=== PATIENT | female | born 1950 | race Caucasian/White ===

== ENCOUNTER 2016-05-13 12:06 | Day surgery (SDC) | payer MEDICARE, OTHER ==
[~2016-05-13] VITALS: Ht 167.6 cm; Wt 75.8 kg
[~2016-05-13 12:06] MED LIST: ASPI-587 PO; CLD600T PO; CLON1TAB36 PO; CYAN50TA PO; DULO60CA6 PO; EQUATE PM; ESCT10T; LORA0.5T34; MULT1TAB63 PO; OMEP-10 PO; OXYC-12 PO; OXYC-199 PO; PNT40TEC PO; QUET50TA21 PO; VIT D; vit B12
--- OUTSIDE RECORDS SUMMARY | 2016-05-13 12:13 | XMS REPORT | Continuity of Care Document ---
Author Author [facility] Organization [facility] Address Unknown Phone Unavailable Care Team Providers Care Preschool Teacher Name Role Phone RAMON TRONCOSO MD PCP Insurance Providers Payer Name Policy Number Subscriber Name Relationship [employer] Medicare [id number] Kamla Lopez 18 Self / Same As Patient Comm Crossover Enter Ins Name [id number] Kamla Lopez 18 Self / Same As Patient Advance Directives Directive Response Recorded Date/Time Advance Directives No 11/08/14 11:50am Health Care Power of Shadow Graph Weight Operator No 11/08/14 11:50am Organ Donor No 11/08/14 11:50am Resuscitation Status Full Code 11/08/14 11:50am Problems No known problems or medical conditions. Medications Medication Dose Route Sig Days/Qty Instructions Order Date Discontinued Date Status Calcium/Vitamin D 2,400 Mg PO DAILY 11/03/07 Active Multivitamins 11/03/07 Active [Equate Pm ] 11/03/07 07/12/13 Discontinued Escitalopram Oxalate 12/07/07 07/12/13 Discontinued Lorazepam 12/07/07 07/12/13 Discontinued Duloxetine HCl 1 Cap PO DAILY 07/12/13 Active Aspirin 81 Mg PO DAILY 07/12/13 10/11/14 Discontinued Omeprazole 20 Mg PO TWICE A DAY 07/12/13 10/11/14 Discontinued [vit B12] 07/12/13 10/07/13 Discontinued [Vit D2000 Iu Daily] 07/12/13 11/03/14 Discontinued Clonazepam 1 Mg GT TWICE A DAY 07/12/13 Active Oxycodone Hcl/Acetaminophen 1 Tab PO EVERY 4HRS PRN PAIN 120 Qty 10/11/14 Discontinued Pantoprazole Sod 40 Mg PO DAILY 10/11/14 Active Cyanocobalamin 1,000 Mcg PO TWICE A DAY 10/11/14 Active Quetiapine Fumarate 50 Mg PO DAILY 10/11/14 Active Oxycodone Hcl/Acetaminophen 1-2 Each PO EVERY 4HRS PRN PAIN 60 Qty LAST DOSE AT 3:50 PM 11/08/14 Active Social History Social History Problem Response Recorded Date/Time Alcohol Use Occasionally Uses 11/08/2014 11:50am Recreational Drug Use No 11/08/2014 11:50am Recent Foreign Travel No 11/08/2014 11:50am Sexually Transmitted Disease No 11/08/2014 11:50am HIV/AIDS No 11/08/2014 11:50am Smoking Status Never a Smoker 11/08/2014 11:50am Do you dip or chew tobacco? No 10/11/2014 10:52am Query Response Start Date Stop Date Smoking Status Never a Smoker Hospital Discharge Instructions No hospital discharge instructions. Plan of Care No plan of care. Functional Status No functional status results. Allergies, Adverse Reactions, Alerts Allergen Type Severity Reaction Status Last Updated No Known Drug Allergies Active 11/03/07 Immunizations Name Given Type Date of Pneumonia Vaccine 10/11/13 Historical Date of Influenza Vaccine 02/11/13 Historical Vital Signs Acute Vital Signs Vital Response Date/Time Temperature (Fahrenheit) 96.8 degrees F (97.6 - 99.5) Temperature (Calculated Celsius) 36.85501 degrees C (36.4 - 37.5) Temperature Source Temporal Pulse Rate (adult) 81 bpm (60 - 90) Respiratory Rate 16 bpm (12 - 24) O2 Sat by Pulse Oximetry 94 % (88 - 100) Blood Pressure 114/70 mm Hg Pain Pain Intensity 2 Height (Feet) 5 feet Height (Inches) 6.00 inches Height (Calculated Centimeters) 167.277842 cm Weight (Pounds) 166 pounds Weight (Calculated Grams) 13751.334 gm Weight (Calculated Kilograms) 75.119593 kilograms Calculated BMI 26.79 Results Laboratory Results Test Name Result Units Flags Reference Collection Date/Time Result Date/ Time Comments White Blood Count 5.8 10^3/uL 4.3-11.0 10/11/2014 1:10/11/2014 1: 28pm Red Blood Count 4.51 10^6/uL 4.35-5.85 10/11/2014 1:10/11/2014 1: 28pm Hemoglobin 13.3 G/DL 11.5-16.0 10/11/2014 1:10/11/2014 1:28pm Hematocrit 41 % 35-52 10/11/2014 1:10/11/2014 1:28pm Mean Corpuscular Volume 91 FL 80-99 10/11/2014 1:10/11/2014 1: 28pm Mean Corpuscular Hemoglobin 30 PG 25-34 10/11/2014 1:10/11/2014 1: 28pm Mean Corpuscular Hemoglobin Concent 32 G/DL 32-36 10/11/2014 1: 1:28pm Red Cell Distribution Width 12.8 % 10.0-14.5 10/11/2014 1:2014 1:28pm Platelet Count 255 10^3/uL 130-400 10/11/2014 1:10/11/2014 1:28pm Mean Platelet Volume 11.3 FL H 7.4-10.4 10/11/2014 1:10/11/2014 1: 28pm Neutrophils (%) (Auto) 58 % 42-75 10/11/2014 1:10/11/2014 1:28pm Lymphocytes (%) (Auto) 31 % 12-44 10/11/2014 1:10/11/2014 1:28pm Monocytes (%) (Auto) 10 % 0-12 10/11/2014 1:10/11/2014 1:28pm Eosinophils (%) (Auto) 2 % 0-10 10/11/2014 1:10/11/2014 1:28pm Basophils (%) (Auto) 1 % 0-10 10/11/2014 1:10/11/2014 1:28pm Neutrophils # (Auto) 3.4 X 10^3 1.8-7.8 10/11/2014 1:10/11/2014 1: 28pm Lymphocytes # (Auto) 1.8 X 10^3 1.0-4.0 10/11/2014 1:15pm 10/11/2014 1: 28pm Monocytes # (Auto) 0.6 X 10^3 0.0-1.0 10/11/2014 1:15pm 10/11/2014 1: 28pm Eosinophils # (Auto) 0.1 10^3/uL 0.0-0.3 10/11/2014 1:15pm 10/11/2014 1 :28pm Basophils # (Auto) 0.0 10^3/uL 0.0-0.1 10/11/2014 1:15pm 10/11/2014 1: 28pm Sodium Level 144 MMOL/L 135-145 10/11/2014 1:pm 10/11/2014 1:40pm Potassium Level 4.0 MMOL/L 3.6-5.0 10/11/2014 1:15pm 10/11/2014 1:40pm Chloride Level 108 MMOL/L H 98-107 10/11/2014 1:pm 10/11/2014 1:40pm Carbon Dioxide Level 26 MMOL/L 21-32 10/11/2014 1:15pm 10/11/2014 1: 40pm Anion Gap 10 MMOL/L 5-14 10/11/2014 1:15pm 10/11/2014 1:40pm Blood Urea Nitrogen 11 MG/DL 7-18 10/11/2014 1:15pm 10/11/2014 1:40pm Creatinine 0.81 MG/DL 0.60-1.30 10/11/2014 1:pm 10/11/2014 1:40pm BUN/Creatinine Ratio 14 10/11/2014 1:10/11/2014 1:40pm Estimat Glomerular Filtration Rate > 60 10/11/2014 1:15pm 2014 1:40pm GFR INTERPRETIVE DATA UNITS FOR ESTIMATED GFR (eGFR): mL/min/1.73 M2 REFERENCE RANGE FOR ESTIMATED GFR (eGFR) eGFR NORMAL eGFR >60 MODERATELY DECREASED eGFR 30-59 SEVERLY DECREASED eGFR 15-29 KIDNEY FAILURE <15 (OR DIALYSIS) Glucose Level 98 MG/DL 70-105 10/11/2014 1:15pm 10/11/2014 1:40pm Calcium Level 9.4 MG/DL 8.5-10.1 10/11/2014 1:15pm 10/11/2014 1:40pm Prothrombin Time 11.7 SEC L 12.2-14.7 11/08/2014 11:50am 11/08/2014 12: 09pm INR Comment 0.8 0.8-1.4 11/08/2014 11:50am 11/08/2014 12:09pm INTERPRETIVE DATA SUGGESTED THERAPEUTIC RANGE FOR INR'S: VENOUS THROMBOSIS, PULMONARY EMBOLISM, OR PREVENTION OF SYSTEMIC EMBOLISM (EG. IN ATRIAL FIBRILLATION): 2.0 - 3.0 MECHANICAL PROSTHETIC HEART VALVES: 2.5 - 3.5* *NOTE: INR'S UP TO 4.5 MAY BE NECESSARY IN SELECTED GROUPS OF HIGH RISK PATIENTS. [employer] CONSENSUS CONFERENCE ON ANTITHROMBOTIC THERAPY (2000). Procedures Procedure Status Date Provider(s) COLOREC CANCR SCR; COLNSCPY HI RISK completed 10/11/14 MANDIE DE SOUZA DO EGD BIOPSY SINGLE/MULTIPLE completed 10/11/14 MANDIE DE SOUZA DO Robot-assisted laparoscopic cholecystectomy completed 11/08/14 MANDIE DE SOUZA DO Encounters Encounter Location Date/Time Registered Surgical Day [facility] 11/08/14 11:24am Registered Clinic [facility] 11/03/14 10:05am Registered Clinic [facility] 10/27/14 1:14pm Registered Clinic [facility] 10/25/14 11:58am Registered Clinic [facility] 10/20/14 9:11am Registered Surgical Day Care [facility] 10/11/14 10:25am
--- NOTE | 2016-05-13 12:45 | ED GI ---
General Chief Complaint: Abdominal/GI Problems Stated Complaint: ABD PAIN/CRAMPING Nursing Triage Note: PT TO ED 7 W/ S.O. FOR C/O CHRONIC ABD PAIN X3 YRS SINCE PATY/HIATAL HERNIA REPAIR, WORSE OVER PAST 5 WKS. DENIES SEEING PCP OR SURGEON SINCE WORSENING OF SYMPTOMS. PT ALSO REPORTS "CLINCHING" STOMACH ET BLACK STOOLS Sepsis Screen: No Definite Risk Source of Information: Patient, Spouse Exam Limitations: No Limitations History of Present Illness Time Seen By Provider: 12:45 Initial Comments 66 yo female patient presents to the emergency department complaints of chronic abdominal pain for 3 years since having her cholecystectomy/hiatal hernia repair /EGD. Reports of the last 5 weeks has increased symptoms. Reports abdominal cramping and "clenching". Denies being able to eat anything today. Did have a small amount of cranberry juice early this morning. States she has been able to vomit since having a hiatal hernia repair. Reports intermittent nausea and vomiting. Does complain of diarrhea following meals since having the cholecystectomy. Timing/Duration: Other (chronic symptoms x3yrs. Worse over the last 5 wks.) Severity/Quality: Cramping Location: Generalized Abdomen Radiation: No Radiation Activities at Onset: None Modifying Factors: Worsens With Eating Allergies and Home Medications Allergies Coded Allergies: No Known Drug Allergies (Verified , 11/03/07) Home Medications Calcium Carbonate/Vitamin D3 1 Tab Tablet 2,400 MG PO DAILY (Reported) Clonazepam 1 Mg Tablet 1 MG GT BID (Reported) Cyanocobalamin 50 Mcg Tablet 1,000 MCG PO BID (Reported) Duloxetine Hcl 60 Mg Capsule.dr 1 CAP PO DAILY (Reported) Multivitamins 1 Ea Tablet (Reported) Oxycodone Hcl/Acetaminophen 1 Each Tablet #60 1-2 EACH PO Q4H PRN PRN PAIN LAST DOSE AT 3:50 PM Prescribed by: DIPIKA WEST on 11/08/14 1617 Pantoprazole Sod 40 Mg Tab 40 MG PO DAILY (Reported) Quetiapine Fumarate 50 Mg Tablet 50 MG PO DAILY (Reported) Review of Systems Constitutional: No chills, No diaphoresis, No dizziness, No fever, malaise weakness (generalized weakness and fatigue.) Respiratory: No Symptoms Reported Cardiovascular: No Symptoms Reported Gastrointestinal: See HPIDenies Abdomen Distended, Abdominal PainDenies Blood Streaked Stools, Denies Constipated, DiarrheaDenies Difficulty Swallowing , Nausea Poor Appetite Poor Fluid Intake Vomiting Other (black stools recently ( reports patient has been taking pepto-bismol for several days).) Genitourinary: Denies Burning, Denies Frequency, Denies Flank Pain, Denies Hematuria, Denies Pain Musculoskeletal: no symptoms reported Skin: no symptoms reported Psychiatric/Neurological: No Symptoms Reported All Other Systems Reviewed Negative Unless Noted: Yes (Negative excepted noted.) Past Wviepgf-Ayylug-Bulbmw Hx Patient Social History Recent Foreign Travel: No Contact w/Someone Who Travel: No Recent Infectious Disease Expo: No Recent Hopitalizations: No Immunizations Up To Date Date of Pneumonia Vaccine: Oct 11, 2013 Date of Influenza Vaccine: Feb 11, 2013 Surgeries HX Surgeries: Yes (HIATAL HERNIA, EGD, COLONOSCOPY, BREAT BIOPSY X2) Surgeries: Gallbladder Respiratory Hx Respiratory Disorders: No Cardiovascular Hx Cardiac Disorders: No Neurological Hx Neurological Disorders: No Reproductive System Hx Reproductive Disorders: No Sexually Transmitted Disease: No HIV/AIDS: No 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 Disorders: Denies Genitourinary Hx Genitourinary Disorders: No Gastrointestinal Hx Gastrointestinal Disorders: Yes Gastrointestinal Disorders: Chronic Constipation, Chronic Diarrhea, Irritable Bowel Musculoskeletal Hx Musculoskeletal Disorders: No Endocrine Hx Endocrine Disorders: No HEENT HX ENT Disorders: No HEENT Disorders: Cataract Loss of Vision: Denies Hearing Impairment: Denies Cancer Hx Cancer: No Psychosocial Hx Psychiatric Problems: Yes Behavioral Health Disorders: Anxiety Integumentary HX Skin/Integumentary Disorder: No Blood Transfusions Hx Blood Disorders: No Adverse Reaction to a Blood Tr: No Reviewed Nursing Assessment Reviewed/Agree w Nursing PMH: Yes Family Medical History Significant Family History: No Pertinent Family Hx Family Medial History: Cancer 19 MOTHER, Onset:Unknown Cancer of colon 19 FATHER Physical Exam Vital Signs VS - Last 72 Hours, by Label 05/13/16 05/13/16 05/13/16 12:12 13:23 14:51 Temp 98.4 98.4 98.4 Pulse 92 Resp 24 B/P 131/80 Pulse Ox 99 O2 Delivery Room Air Capillary Refill : Less Than 3 Seconds General Appearance: WD/WN no apparent distress Respiratory: lungs clear normal breath sounds no respiratory distress Cardiovascular: normal peripheral pulses regular rate, rhythm no edema no murmur Gastrointestinal: normal bowel sounds soft no organomegalyNo distended, No guarding, No rebound, tenderness (generalized mild TTP.) other (well healed surgical scars of the abdomen consistent with PSH.) Extremities: no pedal edema normal capillary refill Back: normal inspection Neurologic/Psychiatric: alert oriented x 3 depressed affect Skin: normal color warm/dry Progress/Results/Core Measures Results/Orders Lab Results Laboratory Tests Test 05/13/16 13:06 05/13/16 13:14 Range/Units Urine Amorphous Sediment MOD GUIDO URATES H /LPF Urine Bacteria FEW H /HPF Urine Bilirubin NEGATIVE NEGATIVE Urine Casts NONE /LPF Urine Clarity SLIGHTLY CLOUDY Urine Color MERCEDES H Urine Crystals PRESENT H /LPF Urine Culture Indicated YES Urine Glucose (UA) NEGATIVE NEGATIVE Urine Ketones 1+ H NEGATIVE Urine Leukocyte Esterase 2+ H NEGATIVE Urine Mucus NEGATIVE /LPF Urine Nitrite NEGATIVE NEGATIVE Urine Protein 2+ H NEGATIVE Urine RBC >100 H /HPF Urine RBC (Auto) 5+ H NEGATIVE Urine Specific [place] 1.020 1.016-1.022 Urine Squamous Epithelial Cells 10-25 H /HPF Urine Urobilinogen NORMAL NORMAL MG/DL Urine WBC 2-5 /HPF Urine Yeast FEW H /HPF Urine pH 6 5-9 Activated Partial Thromboplast Time 24 24-35 SEC Alanine Aminotransferase (ALT/SGPT) 35 0-55 U/L Albumin 4.6 H 3.2-4.5 G/DL Alkaline Phosphatase 107 40-136 U/L Anion Gap 11 5-14 MMOL/L Aspartate Amino Transf (AST/SGOT) 35 H 5-34 U/L BUN/Creatinine Ratio 13 Basophils # (Auto) 0.0 0.0-0.1 10^3/uL Basophils (%) (Auto) 0 0-10 % Blood Urea Nitrogen 14 7-18 MG/DL Calcium Level 9.8 8.5-10.1 MG/DL Carbon Dioxide Level 21 21-32 MMOL/L Chloride Level 105 98-107 MMOL/L Creatinine 1.04 0.60-1.30 MG/DL Eosinophils # (Auto) 0.1 0.0-0.3 10^3/uL Eosinophils (%) (Auto) 1 0-10 % Estimat Glomerular Filtration Rate 53 Glucose Level 81 70-105 MG/DL Hematocrit 44 35-52 % Hemoglobin 14.5 11.5-16.0 G/DL INR Comment 1.0 0.8-1.4 Lipase 28 8-78 U/L Lymphocytes # (Auto) 2.1 1.0-4.0 X 10^3 Lymphocytes (%) (Auto) 28 12-44 % Mean Corpuscular Hemoglobin 31 25-34 PG Mean Corpuscular Hemoglobin Concent 33 32-36 G/DL Mean Corpuscular Volume 92 80-99 FL Mean Platelet Volume 10.7 H 7.4-10.4 FL Monocytes # (Auto) 0.6 0.0-1.0 X 10^3 Monocytes (%) (Auto) 8 0-12 % Neutrophils # (Auto) 4.7 1.8-7.8 X 10^3 Neutrophils (%) (Auto) 62 42-75 % Platelet Count 324 130-400 10^3/uL Potassium Level 4.6 3.6-5.0 MMOL/L Prothrombin Time 12.5 12.2-14.7 SEC Red Blood Count 4.76 4.35-5.85 10^6/uL Red Cell Distribution Width 13.2 10.0-14.5 % Sodium Level 137 135-145 MMOL/L Total Bilirubin 0.5 0.1-1.0 MG/DL Total Protein 7.5 6.4-8.2 G/DL White Blood Count 7.5 4.3-11.0 10^3/uL My Orders Orders-MARIE BARAHONA Cbc With Automated Diff (05/13/16 12:28) Comprehensive Metabolic Panel (05/13/16 12:28) Protime With Inr (05/13/16 12:28) Partial Thromboplastin Time (05/13/16 12:28) Ua Culture If Indicated (05/13/16 12:28) Saline Lock/Iv-Start (05/13/16 12:28) Ns Iv 1000 Ml (Sodium Chloride 0.9%) (05/13/16 13:01) Ondansetron Injection (Zofran Injectio (05/13/16 13:15) Ketorolac Injection (Toradol Injection) (05/13/16 13:01) Urine Culture (05/13/16 13:06) Ct Abd/Pelvis Wo(Kidney Stone) (05/13/16 13:53) Lipase (05/13/16 14:16) Morphine Injection (Morphine Injection (05/13/16 14:46) Ns Iv 1000 Ml (Sodium Chloride 0.9%) (05/13/16 14:46) Medications Given in ED Current Medications Medications Dose Ordered Sig/Yoni Route Start Time Stop Time Status Last Admin Dose Admin Sodium Chloride 1,000 ml @ 0 mls/hr Q0M ONCE IV 05/13/16 14:46 05/13/16 14:48 DC 05/13/16 14:51 999 MLS/HR Vital Signs/I&O Vital Sign - Last 12Hours 05/13/16 05/13/16 05/13/16 12:12 13:23 14:51 Temp 98.4 98.4 98.4 Pulse 92 Resp 24 B/P 131/80 Pulse Ox 99 O2 Delivery Room Air Blood Pressure Mean: 97 Diagnostic Imaging Diagonstic Imaging: CT Plain Films/CT/US/NM/MRI: abdomen, pelvis Reviewed: Reviewed by Me (radiology report reviewed by me.) Departure Communication Time/Spoke to Admitting Phy: 16:09 Communication Patient case discussed with Dr. Jo. She accepts pt to her medical service for IVF, IV pain control, and further evaluation. Progress Notes Patient seen and evaluated. All laboratory finding and diagnostic study findings discussed with the patient. Patient was given Toradol in the emergency department with minimal improvement and pain. Patient was also given 6 mg of morphine IV 1 dose with mild improvement in symptoms. Patient has been very anxious throughout the visit, but refused anxiety medication. Patient noted to be repeatedly state "I just don't know what could be wrong with me. It must be something really bad." Patient case discussed with Dr. Wilder, he agrees with the plan of care. Impression Impression: Primary Impression: Intractable abdominal pain Additional Impressions: Hiatal hernia Left nephrolithiasis Volume depletion Disposition: ADMITTED INPATIENT Condition: Stable Decision to Admit Reason: Admit from ER (General) Decision to Admit/Date: May 13, 2016 Time/Decision to Admit Time: 16:10 Departure-Patient Inst. Referrals: SKINNY JO DO (PCP/Family) Primary Care Physician MARIE BARAHONA May 13, 2016 12:45
[2016-05-13] MEDS ORDERED: NS IV 1000 ML 1,000 ML IV ONE ×2 (13:01→14:46)
[2016-05-13] MEDS ORDERED: KETOROLAC 30 MG/ML VIAL IVP STA (13:01)
[2016-05-13] MEDS ORDERED: ONDANSETRON 4 MG/2 ML (SDV) Z0FRAN IVP ONE (13:15)
[2016-05-13] MEDS ORDERED: IOHEXOL 350 MG/ML 100 ML (OMNIPAQUE 350) VIAL IV ONE (13:15)
[2016-05-13] MEDS ORDERED: NS 100 ML (IVPB) BAG IV ONE (13:15)
[2016-05-13 13:19] LABS: BILIRUBIN,URINE NEGATIVE (NEGATIVE); KETONES,URINE 1+ (NEGATIVE); LEUKOCYTE ESTERASE ,URINE 2+ (NEGATIVE); NITRITE,URINE NEGATIVE (NEGATIVE); PH,URINE 6 (5-9); PROTEIN,URINE 2+ (NEGATIVE); UROBILINOGEN,URINE NORMAL (NORMAL)
[2016-05-13 13:23] LABS: BASOPHILS % (AUTO) 0 % (0-10); EOSINOPHILS # (AUTO) 0.1 10^3/uL (0.0-0.3); EOSINOPHILS % (AUTO) 1 % (0-10); LYMPHOCYTES # (AUTO) 2.1 X 10^3 (1.0-4.0); LYMPHOCYTES % (AUTO) 28 % (12-44); MEAN CORPUSCULAR HEMOGLOBIN 31 PG (25-34); MEAN CORPUSCULAR HGB CONC 33 G/DL (32-36); MEAN CORPUSCULAR VOLUME 92 FL (80-99); MEAN PLATELET VOLUME 10.7 FL (7.4-10.4); MONOCYTES # (AUTO) 0.6 X 10^3 (0.0-1.0); MONOCYTES % (AUTO) 8 % (0-12); NEUTROPHILS # (AUTO) 4.7 X 10^3 (1.8-7.8); NEUTROPHILS % (AUTO) 62 % (42-75); PLATELET COUNT 324 10^3/uL (130-400); RED BLOOD COUNT 4.76 10^6/uL (4.35-5.85); RED CELL DISTRIBUTION WIDTH 13.2 % (10.0-14.5); WHITE BLOOD COUNT 7.5 10^3/uL (4.3-11.0)
[2016-05-13 13:35] LABS: PROTHROMBIN TIME PATIENT 12.5 SEC (12.2-14.7)
[2016-05-13 13:37] LABS: YEAST,URINE FEW /HPF
[2016-05-13 13:44] LABS: ALBUMIN 4.6 G/DL (3.2-4.5); BILIRUBIN,TOTAL 0.5 MG/DL (0.1-1.0); CALCIUM 9.8 MG/DL (8.5-10.1); CREATININE SERUM 1.04 MG/DL (0.60-1.30); POTASSIUM 4.6 MMOL/L (3.6-5.0); TOTAL PROTEIN 7.5 G/DL (6.4-8.2)
--- NOTE | 2016-05-13 14:42 | Diagnostic Imaging Report ---
PROCEDURE: CT urinary tract, rule out kidney stone. TECHNIQUE: Multiple contiguous axial images were obtained through the abdomen and pelvis without the use of intravenous contrast. INDICATION: Abdominal pain. FINDINGS: There is a small to moderate-sized hiatal hernia. Surgical clips adjacent to the gastroesophageal junction are seen. There is a diffuse mild degree of hepatic steatosis. Cholecystectomy clips are noted. The spleen is not enlarged. The adrenal glands and the pancreas appear unremarkable. There are multiple small gallstones seen in the right renal pelvis up to 6 mm in size. There is no hydronephrosis or hydroureter, however. No ureteric stones or bladder stones seen. There are no right kidney stones. The appendix appears normal. There is diverticulosis. No diverticulitis. The abdominal aorta is normal in caliber. No para-aortic significantly enlarged lymph nodes seen. Osseous structures demonstrate mild degenerative changes in the lower lumbar spine and sacroiliac joints. IMPRESSION: 1. There are multiple nonobstructive stones in the right renal pelvis up to 6 mm in size. 2. Diverticulosis. No diverticulitis. 3. Small to moderate-sized hiatal hernia. Dictated by: Dictated on workstation # [id number]
[2016-05-13] MEDS ORDERED: morphine INJ 10 MG/ML 1ML (SYR OR VIAL) IVP STA (14:46)
[2016-05-13 19:15] VITALS: BP 116/78
[2016-05-13] MEDS ORDERED: HYDROcodone/APAP 5 MG/325 MG (LORTAB) TAB PO PRN (19:45)
[2016-05-13] MEDS ORDERED: morphine INJ 4 MG/ML 1 ML (VIAL/SYRINGE) IVP PRN (19:45)
[2016-05-13] MEDS ORDERED: ONDANSETRON 4 MG/2 ML (SDV) Z0FRAN IVP PRN (19:45)
[2016-05-13] MEDS ORDERED: NS W/KCL 20 MEQ/L 1,000 ML IV SCH (19:45)
[2016-05-13] MEDS ORDERED: KETOROLAC 30 MG/ML VIAL IVP PRN (19:45)
[2016-05-13] MEDS ORDERED: CATHETER FLUSH 10 ML SYR IV PRN (19:45)
[2016-05-13] MEDS: KETOROLAC 30 MG/ML VIAL IV PRN (19:53)
[2016-05-13] MEDS ORDERED: fluCOnazole (DIFLUCAN) 100 MG TAB PO SCH (20:00)
[2016-05-13] MEDS: morphine INJ 4 MG/ML 1 ML (VIAL/SYRINGE) IV PRN (20:38)
[2016-05-13] MEDS: ONDANSETRON 4 MG/2 ML (SDV) Z0FRAN IV PRN (20:38)
[2016-05-13] MEDS: FAMOTIDINE 20 MG (PEPCID) TABLET PO SCH (20:39)
[2016-05-13] MEDS ORDERED: FAMOTIDINE 20 MG (PEPCID) TABLET PO SCH (21:00)
[2016-05-13] MEDS: NS W/KCL 20 MEQ/L 1,000 ML IV SCH (23:28)
[2016-05-13] MEDS: HYDROcodone/APAP 5 MG/325 MG (LORTAB) TAB PO PRN (23:41)
[2016-05-14] VITALS: BP 122/74
[2016-05-14] MEDS: NS W/KCL 20 MEQ/L 1,000 ML IV SCH ×3 (03:36→17:35)
[2016-05-14 04:00] VITALS: BP 121/76
[2016-05-14] MEDS: KETOROLAC 30 MG/ML VIAL IV PRN (04:06)
[2016-05-14] MEDS: ONDANSETRON 4 MG/2 ML (SDV) Z0FRAN IV PRN ×2 (07:14→15:24)
[2016-05-14] MEDS: morphine INJ 4 MG/ML 1 ML (VIAL/SYRINGE) IV PRN ×2 (07:15→13:54)
[2016-05-14 07:38] LABS: BASOPHILS % (AUTO) 0 % (0-10); EOSINOPHILS # (AUTO) 0.1 10^3/uL (0.0-0.3); EOSINOPHILS % (AUTO) 1 % (0-10); LYMPHOCYTES # (AUTO) 2.4 X 10^3 (1.0-4.0); LYMPHOCYTES % (AUTO) 31 % (12-44); MEAN CORPUSCULAR HEMOGLOBIN 30 PG (25-34); MEAN CORPUSCULAR HGB CONC 32 G/DL (32-36); MEAN CORPUSCULAR VOLUME 94 FL (80-99); MEAN PLATELET VOLUME 11.6 FL (7.4-10.4); MONOCYTES # (AUTO) 0.5 X 10^3 (0.0-1.0); MONOCYTES % (AUTO) 7 % (0-12); NEUTROPHILS # (AUTO) 4.7 X 10^3 (1.8-7.8); NEUTROPHILS % (AUTO) 61 % (42-75); PLATELET COUNT 317 10^3/uL (130-400); RED BLOOD COUNT 3.99 10^6/uL (4.35-5.85); RED CELL DISTRIBUTION WIDTH 13.2 % (10.0-14.5); WHITE BLOOD COUNT 7.8 10^3/uL (4.3-11.0)
[2016-05-14 08:00] VITALS: BP 125/86
[2016-05-14 08:06] LABS: ALANINE AMINOTRANSFERASE 26 U/L (0-55); ALBUMIN 3.7 G/DL (3.2-4.5); ANION GAP 9 MMOL/L (5-14); ASPARTATE AMINO TRANSFERASE 26 U/L (5-34); BILIRUBIN,TOTAL 0.5 MG/DL (0.1-1.0); BLOOD UREA NITROGEN 12 MG/DL (7-18); BUN/CREATININE RATIO 16; CALCIUM 8.5 MG/DL (8.5-10.1); CARBON DIOXIDE 19 MMOL/L (21-32); CHLORIDE 111 MMOL/L (98-107); CREATININE SERUM 0.75 MG/DL (0.60-1.30); GFR ESTIMATED > 60; GLUCOSE 81 MG/DL (70-105); POTASSIUM 4.3 MMOL/L (3.6-5.0); SODIUM 139 MMOL/L (135-145)
[2016-05-14] MEDS ORDERED: PANTOPRAZOLE 40 MG/10 ML (PROTONIX) VIAL IV NR (08:45)
[2016-05-14] MEDS: fluCOnazole (DIFLUCAN) 100 MG TAB PO SCH (08:53)
[2016-05-14] MEDS: FAMOTIDINE 20 MG (PEPCID) TABLET PO SCH ×2 (08:54→20:02)
[2016-05-14] MEDS: PANTOPRAZOLE 40 MG/10 ML (PROTONIX) VIAL IV SCH (09:00)
[2016-05-14] MEDS ORDERED: DICY20TA10 PO (09:56)
[2016-05-14] MEDS ORDERED: CYAN100T PO (09:56)
[2016-05-14] MEDS ORDERED: COLE1TAB PO (09:56)
[2016-05-14] MEDS: HYDROcodone/APAP 5 MG/325 MG (LORTAB) TAB PO PRN ×2 (10:31→23:48)
[2016-05-14 12:00] VITALS: BP 122/75
--- NOTE | 2016-05-14 12:28 | Diagnostic Imaging Report ---
EXAMINATION: KUB. INDICATION: Left renal pelvis stones. FINDINGS: The left kidney stones are not well appreciated on this exam. They are much better seen on recent CT scan of 05/13/2016. There is a moderate amount of fecal material seen in the colon. Midline pelvic calcifications are perhaps related to phleboliths. IMPRESSION: The left kidney stones seen on recent CT scan are not well demonstrated on this study. Dictated by: Dictated on workstation # [id number]
[2016-05-14] MEDS ORDERED: QUEtiapine 25 MG (SEROquel) TAB IMMEDIATE RELEASE PO PRN (13:00)
[2016-05-14] MEDS ORDERED: DICYCLOMINE 10 MG (BENTYL) CAP PO PRN (13:00)
[2016-05-14] MEDS ORDERED: clonazePAM 1 MG (KlonoPIN) TAB PO PRN (13:00)
--- NOTE | 2016-05-14 13:06 | History & Physicial ---
History of Present Illness History of Present Illness Reason for visit/HPI This is a 66 year old woman with a history of chronic abdominal pain for at least 3 years. She has been diagnosed with IBS--diarrhea predominant. However , she states that the past month her pain has worsened with associated nause so she presented to the emergency room for evaluation. He workup was essentially negative except for several stones in the left renal pelvis. The patient was in too much pain with nausea to go home so it was decided to admit her for IVF, IV antiemetics and urology consult. Date of Admission May 13, 2016 at 5:00 pm I consulted on this patient on 05/14/16 13:00 Attending Physician Obdulia Jo DO Admitting Physician Obdulia Jo DO Consult Allergies and Home Medications Allergies Coded Allergies: No Known Drug Allergies (Verified , 11/03/07) Home Medications Calcium Carbonate/Vitamin D3 1 Tab Tablet 1 TAB PO DAILY (Reported) Clonazepam 1 Mg Tablet 1 MG PO BID PRN PRN ANXIETY (Reported) Colestipol HCl 1 Gm Tablet 1 GM PO DAILY (Reported) Cyanocobalamin 100 Mcg Tablet 100 MCG PO DAILY (Reported) Dicyclomine HCl 20 Mg Tablet 20 MG PO QID PRN PRN AD (Reported) Duloxetine Hcl 60 Mg Capsule.dr 60 MG PO DAILY (Reported) Multivitamins 1 Ea Tablet 1 TAB PO DAILY (Reported) Pantoprazole Sod 40 Mg Tab 40 MG PO DAILY (Reported) Quetiapine Fumarate 50 Mg Tablet 50 MG PO BID PRN PRN WHEN TAKING CLONAZEPAM ( Reported) Past Zekduyo-Rxwbne-Eukdes Hx Patient Social History Alcohol Use: Occasionally Uses Recreational Drug Use: No Smoking Status: Never a Smoker Physical Abuse Screen: No Sexual Abuse: No Recent Foreign Travel: No Contact w/other who traveled: No Recent Hopitalizations: No Recent Infectious Disease Expo: No Immunizations Up To Date Date of Pneumonia Vaccine: Oct 11, 2013 Date of Influenza Vaccine: Jan 13, 2016 Surgeries HX Surgeries: Yes (HIATAL HERNIA, EGD, COLONOSCOPY, BREAT BIOPSY X2) Surgeries: Gallbladder Respiratory Hx Respiratory Disorders: No Cardiovascular Hx Cardiovascular Disorders: No Neurological Hx Neurological Disorders: No Reproductive System Hx Reproductive Disorders: No Sexually Transmitted Disease: No HIV/AIDS: No 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 Disorders: Denies Genitourinary Hx Genitourinary Disorders: No Gastrointestinal Hx Gastrointestinal Disorders: Yes Gastrointestinal Disorders: Chronic Constipation, Chronic Diarrhea, Irritable Bowel Musculoskeletal Hx Musculoskeletal Disorders: No Endocrine Hx Endocrine Disorders: No HEENT HX ENT Disorders: No HEENT Disorders: Cataract Loss of Vision: Denies Hearing Impairment: Denies Cancer Hx Cancer: No Psychosocial Hx Psychiatric Problems: Yes Behavioral Health Disorders: Anxiety Integumentary HX Skin/Integumentary Disorder: No Blood Transfusions Hx Blood Disorders: No Adverse Reaction to a Blood Tr: No Reviewed Nursing Assessment Reviewed/Agree w Nursing PMH: Yes Family Medical History Significant Family History: No Pertinent Family Hx Family Hx: Cancer 19 MOTHER, Onset:Unknown Cancer of colon 19 FATHER Constitutional: weakness EENTM: No blurred vision, No dental problems, No double vision, No ear discharge, No ear pain, No epistaxis, No eye pain, No hearing loss, No hoarseness, No mouth pain, No mouth swelling, No no symptoms reported, No nose congestion, No nose pain, No other, No see HPI, No tearing, No throat pain, No throat swelling, No vision loss Respiratory: No no symptoms reported, No see HPI, No cough, No dyspnea on exertion, No hemoptysis, No orthopnea, No phlegm, No short of breath, No stridor , No wheezing, No other Cardiovascular: No no symptoms reported, No see HPI, No chest pain, No edema, No Hx of Intervention, No palpitations, No syncope, No vascular heart diseas, No other Gastrointestinal: abdominal pain diarrhea loss of appetite nausea Genitourinary: No no symptoms reported, No see HPI, No decreased output, No discharge, No dysuria, No frequency, No hematuria, No hesitancy, No incontinence , No nocturia, No pain, No other Musculoskeletal: No no symptoms reported, No see HPI, No back pain, No gout, No joint pain, No joint swelling, No muscle pain, No muscle stiffness, No muscle cramps, No muscle twitching, No muscle weakness, No neck pain, No other Skin: No no symptoms reported, No see HPI, No change in color, No change in hair/nails, No dryness, No hx of skin cancer, No lesions, No lumps, No pruritus , No rash, No other Psychiatric/Neurological: Anxiety Weakness Physical Exam Vital Signs Vital Sign - Last 12Hours 05/13/16 12:12 Temp 98.4 Pulse 92 Resp 24 B/P 131/80 Pulse Ox 99 O2 Delivery Room Air Capillary Refill : Less Than 3 Seconds General Appearance: Moderate Distress (due to abdominal pain) HEENT: Normal ENT Inspection Neck: Supple Respiratory: Lungs Clear Cardiovascular: Regular Rate, Rhythm Gastrointestinal: Normal Bowel Sounds Soft Guarding Tenderness (generalized) Rectal: Deferred Back: CVA Tenderness (L) CVA Tenderness (R) Extremity: Non Tender No Calf Tenderness No Pedal Edema Neurologic/Psychiatric: Alert Oriented x3 Other (anxious) Skin: Normal Color Warm/Dry Lymphatic: No Adenopathy Comments Laboratory Tests 05/13/16 13:06: Urine Amorphous Sediment MOD GUIDO URATESH, Urine Bacteria FEWH, Urine Bilirubin NEGATIVE, Urine Casts NONE, Urine Clarity SLIGHTLY CLOUDY, Urine Color AMBERH, Urine Crystals PRESENTH, Urine Culture Indicated YES, Urine Glucose (UA) NEGATIVE, Urine Ketones 1+H, Urine Leukocyte Esterase 2+H, Urine Mucus NEGATIVE , Urine Nitrite NEGATIVE, Urine Protein 2+H, Urine RBC >100H, Urine RBC (Auto) 5 +H, Urine Specific [place] 1.020, Urine Squamous Epithelial Cells 10-25H, Urine Urobilinogen NORMAL, Urine WBC 2-5, Urine Yeast FEWH, Urine pH 6 05/13/16 13:14: Activated Partial Thromboplast Time 24, Alanine Aminotransferase (ALT/SGPT) 35, Albumin 4.6H, Alkaline Phosphatase 107, Anion Gap 11, Aspartate Amino Transf ( AST/SGOT) 35H, BUN/Creatinine Ratio 13, Basophils # (Auto) 0.0, Basophils (%) ( Auto) 0, Blood Urea Nitrogen 14, Calcium Level 9.8, Carbon Dioxide Level 21, Chloride Level 105, Creatinine 1.04, Eosinophils # (Auto) 0.1, Eosinophils (%) ( Auto) 1, Estimat Glomerular Filtration Rate 53, Glucose Level 81, Hematocrit 44 , Hemoglobin 14.5, INR Comment 1.0, Lipase 28, Lymphocytes # (Auto) 2.1, Lymphocytes (%) (Auto) 28, Mean Corpuscular Hemoglobin 31, Mean Corpuscular Hemoglobin Concent 33, Mean Corpuscular Volume 92, Mean Platelet Volume 10.7H, Monocytes # (Auto) 0.6, Monocytes (%) (Auto) 8, Neutrophils # (Auto) 4.7, Neutrophils (%) (Auto) 62, Platelet Count 324, Potassium Level 4.6, Prothrombin Time 12.5, Red Blood Count 4.76, Red Cell Distribution Width 13.2, Sodium Level 137, Total Bilirubin 0.5, Total Protein 7.5, White Blood Count 7.5 05/14/16 04:25: Alanine Aminotransferase (ALT/SGPT) 26, Albumin 3.7, Alkaline Phosphatase 84, Anion Gap 9, Aspartate Amino Transf (AST/SGOT) 26, BUN/Creatinine Ratio 16, Basophils # (Auto) 0.0, Basophils (%) (Auto) 0, Blood Urea Nitrogen 12, Calcium Level 8.5, Carbon Dioxide Level 19L, Chloride Level 111H, Creatinine 0.75, Eosinophils # (Auto) 0.1, Eosinophils (%) (Auto) 1, Estimat Glomerular Filtration Rate > 60, Glucose Level 81, Hematocrit 37, Hemoglobin 12.1, Lymphocytes # (Auto) 2.4, Lymphocytes (%) (Auto) 31, Mean Corpuscular Hemoglobin 30, Mean Corpuscular Hemoglobin Concent 32, Mean Corpuscular Volume 94, Mean Platelet Volume 11.6H, Monocytes # (Auto) 0.5, Monocytes (%) (Auto) 7, Neutrophils # (Auto) 4.7, Neutrophils (%) (Auto) 61, Platelet Count 317, Potassium Level 4.3, Red Blood Count 3.99L, Red Cell Distribution Width 13.2, Sodium Level 139, Total Bilirubin 0.5, Total Protein 6.0L, White Blood Count 7.8 Microbiology 05/13/16 Urine Culture - Preliminary, Resulted Assessment/Plan Assessment and Plan 1. Acute on Chronic Abdominal Pain--admit for pain control 2. Dyspepsia/Nausea--protonix and zofran prn 3. Left Renal Pelvis Stones--consult urology 4. IBS--Diarrhea Predominant--resume cholestyramine and bentyl 5. Anxiety--resume home medications Clinical Quality Measures DVT/VTE Risk/Contraindication: Risk Factor Score Per Nursin RFS Level Per Nursing on Admit: 3=High OBDULIA JO DO May 14, 2016 1:05 pm
[2016-05-14] MEDS ORDERED: ANTACID SUSP 30 ML UDC (MYLANTA) PO NR ×2 (13:15→17:00)
--- NOTE | 2016-05-14 13:19 | Diagnostic Imaging Report ---
EXAMINATION: KUB. INDICATION: Left renal pelvis stones. FINDINGS: The stones seen on the recent CT scan in the left renal pelvis are not well visualized. No definitive stone is identified by KUB. There are small to moderate amounts of fecal material noted. IMPRESSION: The recently seen left renal pelvis stones by CT scan are not visualized. Dictated by: Dictated on workstation # [id number]
--- NOTE | 2016-05-14 13:28 | CONSULTATION REPORT ---
DATE OF CONSULTATION: 05/14/2016 ATTENDING PHYSICIAN: Dr. Jo. SUMMARY: After reviewing the patient's record, interviewing, her and examining her, this is a 66-year-old white lady who has been having chronic abdominal and pelvic pain, as well as shooting pain in her urethra for the past 3 years, since she had a cholecystectomy and hiatal hernia repair. She was found by CT scan to have nonobstructing left renal pelvic stones up to 6 mm. No urethral stone, no problem in the bladder. ALLERGIES: She has no known drug allergies. MEDICATIONS: 1. She is on vitamin D3. 2. Calcium. 3. Clonazepam 4. Dicyclomine 5. Duloxetine. 6. Vitamins. 7. Oxycodone, 8. Pantoprazole. 9. Quetiapine fumarate 10. Doses per chart and history. REVIEW OF SYSTEMS: He denies any other complaints including any urinary symptoms at all. SURGERY RAMIREZ: 1. Above mentioned procedures. 2. Two breast biopsies. 3. Colonoscopy and EGD. SOCIAL HISTORY: he denies smoking, alcohol or drugs. FAMILY HISTORY: Family history of colon cancer. PHYSICAL EXAMINATION: Vitals per chart. GENERAL: Well-nourished, well-developed, in no acute distress. HEAD: Normocephalic. ENT: Unremarkable. NECK: Supple. CHEST: Clear. HEART: Regular rate and rhythm. ABDOMEN: Soft. No rebound or rigidity. Mild tenderness all over the abdomen and no CVA tenderness. EXTREMITIES: Lower extremity no edema. NEUROLOGICAL EXAM: Grossly intact. Oriented x3. Urinalysis shows microscopic hematuria. Vitals: Fine IMPRESSION: 1. Chronic abdominal and pelvic pain. 2. Left nonobstructing renal pelvic stones. RECOMMENDATION: I seriously doubt the stones are causing her problem and I explained that to her, although she thinks they are and I told her that stone to cause pain have to cause obstruction or infection and she has neither one of those. Also I told her to deal with the stones will be ESWL. The machine is going to be here tomorrow however, I told her we have to be able to see the stone by KUB. So we will go ahead and order one and manage according to the finding. She insisted to have an ESWL and they seen by the KUB and she wishes to have it tomorrow. We will proceed as such however she perfectly understands that that if the stones are not causing the pain, taking care of the stone is not going to solve her chronic pain. She may need later on a cystoscopy and urodynamic study to make sure there is no problem in the bladder itself causing the pain; example interstitial cystitis. Job ID: [id number] Dictated Date: 05/14/2016 12:41:55 Printing Bindery Assistant Date: 05/14/2016 13:12:39/hai
[2016-05-14 15:45] VITALS: BP 125/78
[2016-05-14 19:05] VITALS: BP 136/91
[2016-05-15] VITALS: BP 133/85
[2016-05-15] MEDS: NS W/KCL 20 MEQ/L 1,000 ML IV SCH ×4 (00:38→23:15)
[2016-05-15 04:00] VITALS: BP 130/81
[2016-05-15] MEDS: KETOROLAC 30 MG/ML VIAL IV PRN (04:52)
--- NOTE | 2016-05-15 07:07 | Progress Note-Pre Operative ---
Pre-Operative Progress Note H&P Reviewed The H&P was reviewed, patient examined and no changes noted. Date H&P Reviewed: May 15, 2016 Time H&P Reviewed: 07:07 Pre-Operative Diagnosis: 1. Lt renal stones 2. CPP and abdominal pain WAYNE ROSADO MD May 15, 2016 7:07 am
[2016-05-15] MEDS: LACTATED RINGERS 1,000 ML IV SCH ×2 (07:23→08:50)
[2016-05-15] MEDS ORDERED: ONDANSETRON 4 MG/2 ML (SDV) Z0FRAN ONE ×2 (07:28→08:23)
[2016-05-15] MEDS ORDERED: cefTRIAXone 1 GM (ROCEPHIN) VIAL ONE (07:41)
[2016-05-15] MEDS ORDERED: NORMAL SALINE (BAXTER MINI) 50 ML IV ONE (07:42)
[2016-05-15] MEDS ORDERED: MIDAZOLAM 2 MG/2 ML (VERSED) VIAL ONE (07:46)
[2016-05-15] MEDS ORDERED: fentaNYL INJECTION 100 MCG/2 ML AMP ONE (07:46)
[2016-05-15] MEDS: fluCOnazole (DIFLUCAN) 100 MG TAB PO SCH (07:58)
--- NOTE | 2016-05-15 07:58 | Progress Note-Post Operative ---
Post-Operative Progess Note Pre-Operative Diagnosis 1. Lt renal stones 2. CPP and abdominal pain Post-Operative Diagnosis same Post-Op Procedure Note Date of Procedure: May 15, 2016 Name of Procedure: cystoscopy, Lt retrograde urogram, Lt ESWL Anesthesia Type general ALONZOWAYNE IBRAHIM MD May 15, 2016 7:58 am
[2016-05-15] MEDS ORDERED: LACTATED RINGERS 1,000 ML IV ONE (08:23)
[2016-05-15] MEDS ORDERED: LIDOCAINE PF 2% 10 ML (XYLOCAINE) AMP ONE (08:23)
[2016-05-15] MEDS ORDERED: SEVOFLURANE (ULTANE) 15 ML INHAL SOLN ONE ×3 (08:23→09:01)
[2016-05-15] MEDS ORDERED: FUROSEMIDE 40 MG/4 ML INJ (LASIX) ONE (08:23)
[2016-05-15] MEDS ORDERED: proPOfol 200 MG/20 ML (DIPRIVAN) VIAL IV ONE (08:23)
[2016-05-15] MEDS ORDERED: KETOROLAC 30 MG/ML VIAL ONE (08:23)
[2016-05-15] MEDS ORDERED: DEXAMETHASONE PF 10 MG/ML (DECADRON) VIAL ONE (08:24)
[2016-05-15] MEDS ORDERED: CYANOCOBALAMIN 100 MCG PO SCH (09:00)
[2016-05-15] MEDS ORDERED: COLESTIPOL 1 GM (COLESTID) TAB PO SCH (09:00)
[2016-05-15] MEDS ORDERED: morphine INJ 10 MG/ML 1ML (SYR OR VIAL) IV PRN (09:30)
[2016-05-15] MEDS ORDERED: ONDANSETRON 4 MG/2 ML (SDV) Z0FRAN IV ONE (09:30)
[2016-05-15] MEDS ORDERED: fentaNYL INJECTION 100 MCG/2 ML AMP IV PRN (09:30)
[2016-05-15 10:35] VITALS: BP 116/72
[2016-05-15] MEDS: PANTOPRAZOLE 40 MG/10 ML (PROTONIX) VIAL IV SCH (11:14)
[2016-05-15] MEDS: DULoxetine 30 MG (CYMBALTA) CAP PO SCH (11:15)
[2016-05-15] MEDS: FAMOTIDINE 20 MG (PEPCID) TABLET PO SCH ×2 (11:15→21:22)
[2016-05-15 12:00] VITALS: BP 137/64
[2016-05-15 16:20] VITALS: BP 125/78
--- NOTE | 2016-05-15 18:44 | Progress Note (SOAP) ---
Subjective Subjective/Events-last exam Fwup abdominal pain, Left renal pelvis stones, IBS, anxiety. Some confusion-- likely post-anesthesia and from pain medications. Pain much improved. Objective Exam Vital Signs Date Time Temp Pulse Resp B/P Pulse Ox O2 Delivery O2 Flow Rate FiO2 05/15/16 16:20 98.4 91 18 125/78 96 Room Air 05/15/16 12:00 97.0 67 20 137/64 97 Room Air 05/15/16 10:35 96.1 83 20 116/72 92 Room Air 05/15/16 04:00 97.0 63 20 130/81 95 Room Air 05/15/16 00:00 98.0 67 18 133/85 98 Room Air 05/14/16 19:05 97.4 56 18 136/91 97 Room Air I & O 05/15/16 07:00 Intake Total 3125 ml Output Total 2475 ml Balance 650 ml Capillary Refill : Less Than 3 Seconds General Appearance: No Apparent Distress Neck: Supple Respiratory: Lungs Clear Cardiovascular: Regular Rate, Rhythm Gastrointestinal: normal bowel sounds non tender soft Extremity: Non Tender No Calf Tenderness No Pedal Edema Neurologic/Psychiatric: Alert Results Lab Microbiology 05/13/16 Urine Culture - Final, Complete Assessment/Plan Assessment/Plan Assess & Plan/Chief Complaint 1. Acute on Chronic Abdominal Pain--much improved since lithotripsy procedure and cystoscopy this AM 2. Left Renal Pelvic Stones--Lithotripsy done this AM by Dr. Lester 3. IBS--stable 4. Anxiety--stable 5. Post-op confusion--likely from anesthesia/pain meds Diagnosis/Problems: Clinical Quality Measures DVT/VTE Risk/Contraindication: Risk Factor Score Per Nursin RFS Level Per Nursing on Admit: 3=High SKINNY DIA DO May 15, 2016 6:44 pm
[2016-05-15 19:20] VITALS: BP 120/66
[2016-05-16] VITALS: BP 115/66
[2016-05-16] MEDS: NS W/KCL 20 MEQ/L 1,000 ML IV SCH ×2 (04:05→08:27)
[2016-05-16] MEDS: DULoxetine 30 MG (CYMBALTA) CAP PO SCH (08:27)
[2016-05-16] MEDS: fluCOnazole (DIFLUCAN) 100 MG TAB PO SCH (08:27)
[2016-05-16] MEDS: FAMOTIDINE 20 MG (PEPCID) TABLET PO SCH (09:00)
[2016-05-16] MEDS: PANTOPRAZOLE 40 MG/10 ML (PROTONIX) VIAL IV SCH (09:41)
--- NOTE | 2016-05-16 10:42 | Discharge Inst-Simple/Standard ---
Discharge Inst-Standard Patient Instructions/Follow Up Plan of Care/Instructions/FU: Fwup with me in [address] Lester per his discharge Activity as Tolerated: Yes Discharge Diet: No Restrictions SKINNY DIA DO May 16, 2016 10:42 am
--- NOTE | 2016-05-16 10:46 | OPERATIVE REPORT ---
PROCEDURE PHYSICIAN: WAYNE ROSADO DATE OF PROCEDURE: 05/15/2016 PREOPERATIVE DIAGNOSIS: 1. Chronic pelvic and abdominal pain possible interstitial cystitis. 2. Left renal stones. POSTOPERATIVE DIAGNOSIS: 1. Chronic pelvic and abdominal pain possible interstitial cystitis. 2. Left renal stones. 3. No interstitial cystitis. OPERATION: 1. Cystoscopy. 2. Left retrograde urogram. 3. Left ESWL. SURGEON: Trevon ANESTHESIA: General. COMPLICATIONS: None. PROCEDURE: Under satisfactory general anesthesia, the patient in lithotomy position on the cystoscopy table, the genitalia were prepped and draped in usual sterile fashion. A 25-Nepalese cystoscope was introduced easily in the urethra. There was no vaginitis or cystorectocele. The bladder was completely normal using both lenses. No evidence of any type of cystitis, including interstitial cystitis. No foreign body, bladder tumor, stone visualized. No area of carcinoma in situ. Ureteric orifice is normal in shape, and configuration with clear efflux bilaterally equally. Using the Foroblique lens I passed a 5-Nepalese spiral-tip ureteral catheter all the way to just below the pelvis of the kidney, injected contrast to visualized the filling defect stones in the renal pelvis. The cystoscope was removed. The [place] catheter was inserted and taped to the ureteral catheter and the patient was moved on the ESWL table supine. The stones in the renal pelvis were localized using contrast injection during the surgery until we could not see the filling defect anymore after delivering 2500 shocks at KV of 5. The patient received 40 mg of Lasix and 30 mg of Toradol IV at the end of the procedure. She tolerated the procedure and anesthesia well and was sent to recovery room in stable condition. Job ID: [id number] Dictated Date: 05/15/2016 09:02:14 Helpdesk Analyst Date: 05/16/2016 10:40:10 / hai
[2016-05-16 11:14] VITALS: BP 115/66
--- OUTSIDE RECORDS SUMMARY | 2016-05-21 13:16 | XMS REPORT | Continuity of Care Document ---
Author Author [facility] Organization [facility] Address Unknown Phone Unavailable Care Team Providers Care First Leveler Name Role Phone RAMON TRONCOSO MD PCP Insurance Providers Payer Name Policy Number Subscriber Name Relationship W[employer] Medicare [id number] Kamla Lopez 18 Self / Same As Patient Comm Crossover Enter Ins Name [id number] Kamla Lopez 18 Self / Same As Patient Advance Directives Directive Response Recorded Date/Time Advance Directives No 11/08/14 11:50am Health Care Power of Podiatry Assistant No 11/08/14 11:50am Organ Donor No 11/08/14 [...] F (97.6 - 99.5) Temperature (Calculated Celsius) 36.52570 degrees C (36.4 - 37.5) Temperature Source Temporal Pulse Rate (adult) 81 bpm (60 - 90) Respiratory Rate 16 bpm (12 - 24) O2 Sat by Pulse Oximetry 94 % (88 - 100) Blood Pressure 114/70 mm Hg Pain Pain Intensity 2 Height (Feet) 5 feet Height (Inches) 6.00 inches Height (Calculated Centimeters) 167.195205 cm Weight (Pounds) 166 pounds Weight (Calculated Grams) 55931.334 gm Weight (Calculated Kilograms) 75.211803 kilograms Calculated BMI 26.79 Results Laboratory Results [...] SELECTED GROUPS OF HIGH RISK PATIENTS. [employer] CONSENSUS CONFERENCE ON ANTITHROMBOTIC THERAPY (2000). Procedures Procedure Status Date Provider(s) COLOREC CANCR SCR; COLNSCPY HI RISK completed 10/11/14 MANDIE DE SOUZA DO EGD BIOPSY SINGLE/MULTIPLE completed 10/11/14 MANDIE DE SOUZA DO Robot-assisted laparoscopic cholecystectomy completed 11/08/14 MANDIE DE SOUZA DO Encounters Encounter Location Date/Time Registered Surgical Day Care [facility] 11/08/14 11:24am Registered Clinic [facility] 11/03/14 10:05am Registered Clinic [facility] 10/27/14 1:14pm Registered Clinic [facility] 10/25/14 11:58am Registered Clinic [facility] 10/20/14 9:11am Registered Surgical Day Care [facility] 10/11/14 10:25am
--- OUTSIDE RECORDS SUMMARY | 2016-05-21 13:17 | XMS REPORT | Continuity of Care Document ---
Author Author [facility] Organization [facility] Address Unknown Phone Unavailable Care Team Providers Care Staff Trainer Name Role Phone RAMON TRONCOSO MD PCP Insurance Providers Payer Name Policy Number Subscriber Name Relationship Wps Medicare [id number] Kamla Lopez 18 Self / Same As Patient Comm Crossover Enter Ins Name [id number] Kamla Lopez 18 Self / Same As Patient Advance Directives Directive Response Recorded Date/Time Advance Directives No 11/08/14 11:50am Health Care Power of Inshore Undersea Warfare Officer No 11/08/14 11:50am Organ Donor No 11/08/14 [...] F (97.6 - 99.5) Temperature (Calculated Celsius) 36.37330 degrees C (36.4 - 37.5) Temperature Source Temporal Pulse Rate (adult) 81 bpm (60 - 90) Respiratory Rate 16 bpm (12 - 24) O2 Sat by Pulse Oximetry 94 % (88 - 100) Blood Pressure 114/70 mm Hg Pain Pain Intensity 2 Height (Feet) 5 feet Height (Inches) 6.00 inches Height (Calculated Centimeters) 167.851817 cm Weight (Pounds) 166 pounds Weight (Calculated Grams) 54548.334 gm Weight (Calculated Kilograms) 75.478054 kilograms Calculated BMI 26.79 Results Laboratory Results [...] SELECTED GROUPS OF HIGH RISK PATIENTS. [employer] [employer] CONSENSUS CONFERENCE ON ANTITHROMBOTIC THERAPY (2000). Procedures Procedure Status Date Provider(s) COLOREC CANCR SCR; COLNSCPY HI RISK completed 10/11/14 MANDIE DE SOUZA DO EGD BIOPSY SINGLE/MULTIPLE completed 10/11/14 MANDIE DE SOUZA DO Robot-assisted laparoscopic cholecystectomy completed 11/08/14 MANDIE DE SOUZA DO Encounters Encounter Location Date/Time Registered Surgical Day Care [facility] 11/08/14 11:24am Registered Clinic [facility] 11/03/14 10:05am Registered Clinic [facility] 10/27/14 1:14pm Registered Clinic [facility] 10/25/14 11:58am Registered Clinic [facility] 10/20/14 9:11am Registered Surgical Day Care [facility] 10/11/14 10:25am
== END 2016-05-16 11:11 | disposition home or self-care (01) ==
LOC: EDUNIT# 12:06 → ER 12:10 → 4TH 17:00 → UNDOADMOB 17:00 → 4TH 19:00 → SDC 19:00 → UNDODISOB 05-16 11:11 → SDC 05-16 11:11
PROVIDERS: ATTEND Family Medicine
DX: N20.0 Calculus of kidney (principal); K44.9 Diaphragmatic hernia without obstruction or gangrene; F41.9 Anxiety disorder, unspecified; K58.0 Irritable bowel syndrome with diarrhea; R41.0 Disorientation, unspecified; Z79.899 Other long term (current) drug therapy
CPT/HCPCS: 36415; 74000; 74176; 80053; 81000; 83690; 85025; 85610; 85730; 87081; 87088; 96361; 96374; 96375; G0378

== ENCOUNTER → 2016-06-21 | Outpatient (CLI) | payer MEDICARE, OTHER ==
[~2016-06-21] MED LIST changes: +COLE1TAB PO; +CYAN100T PO; +DICY20TA10 PO
--- NOTE | 2016-06-21 13:35 | Diagnostic Imaging Report ---
PROCEDURE: CT head without contrast. TECHNIQUE: Multiple contiguous axial images were obtained through the brain without the use of intravenous contrast. INDICATION: Confusion. COMPARISON: There are no prior studies available for comparison. FINDINGS: There is no mass, shift of the midline, or hemorrhage to suggest an acute intracranial abnormality. The ventricles are somewhat prominent but not abnormally dilated. The size of the ventricles is most likely due to the underlying cortical atrophy. The degree of atrophy is consistent with the patient's age. There are also faint areas of diminished density in the periventricular white matter bilaterally. These findings are nonspecific but may be secondary to encephalomalacia from microvascular ischemia. In addition, there appears to be a long-standing lacunar infarct in the basal ganglia on the right. The bone windows show no evidence for a fracture or for a destructive lesion. The orbits are symmetrical and within normal limits. The sinuses were not visualized in their entirety. Where visualized, the sinuses are clear. IMPRESSION: 1. There is no evidence for an acute intracranial abnormality. There is no sign of a mass lesion either. 2. If clinical concern regarding an underlying abnormality persists, then MRI would be recommended for further study. Dictated by: Dictated on workstation # [id number]
== END ==
LOC: RAD 11:03
PROVIDERS: ATTEND Family Medicine
DX: R41.0 Disorientation, unspecified (principal)
CPT/HCPCS: 70450

== ENCOUNTER → 2016-07-18 | Outpatient (CLI) | payer MEDICARE, OTHER ==
--- NOTE | 2016-07-22 14:04 | Diagnostic Imaging Report ---
Bilateral screening mammogram. The current study was also evaluated with a Computer Aided Detection (CAD) system. INDICATION: Screening. No current complaints stated on the questionnaire. COMPARISON: 03/02/2015. FINDINGS: The breasts are composed of heterogeneously dense parenchyma which may decrease mammographic sensitivity. There are scattered fibroglandular densities however in the left breast. This global asymmetry in the parenchymal densities is stable since 2009. No mass, architectural distortion, or suspicious cluster of calcifications seen. Allowing for technique and positional differences, no suspicious change is seen. IMPRESSION: No significant change. ACR BI-RADS Category 2: Benign findings. Result letter will be mailed to the patient. Note: At least 10% of breast cancer is not imaged by mammography. Dictated by: Dictated on workstation # [id number]
== END ==
LOC: RAD 14:16
PROVIDERS: ATTEND Family Medicine
DX: Z12.31 Encounter for screening mammogram for malignant neoplasm of breast (principal)
CPT/HCPCS: 77067

== ENCOUNTER → 2016-09-21 | Emergency (ER) | payer MEDICARE, OTHER ==
[~2016-09-21] VITALS: Ht 165.1 cm; Wt 69.9 kg
[~2016-09-21] MED LIST changes: +CEPH-507 PO; +HYDR-3812 PO; +MIRT30TA6; +TAMS0.4C98 PO
--- NOTE | 2016-09-21 13:12 | ED GU-Female ---
General Chief Complaint: -Female Stated Complaint: UTI SYMPTOMS Source: patient, family Exam Limitations: no limitations () History of Present Illness Time seen by provider: 13:05 Initial Comments Patient brought by private conveyance with her to the ER because she is having worsening one and a half days worth of left flank pain and mild burning when she urinates. She's had stones most recently last summer. She typically sees Dr. Srivastava but saw Dr. Augustine at [facility] yesterday because she was having frequency of urination. She states the frequency is been going on for several weeks so he stopped her donepezil, Namenda,, and trazodone and put her on Remeron instead. She thinks the Remeron worked very well for her insomnia. Her frequency continues. She has had no hematuria. No nausea, fever, chills, weight loss, constipation. She does have IBS D for which she is on dicyclomine but she does not feel this helped very much. Allergies and Home Medications Allergies Coded Allergies: No Known Drug Allergies (Verified , 11/03/07) Home Medications Calcium Carbonate/Vitamin D3 1 Tab Tablet, 1 TAB PO DAILY, (Reported) Clonazepam 1 Mg Tablet, 1 MG PO BID PRN for ANXIETY, (Reported) Colestipol HCl 1 Gm Tablet, 1 GM PO DAILY, (Reported) Cyanocobalamin 100 Mcg Tablet, 100 MCG PO DAILY, (Reported) Dicyclomine HCl 20 Mg Tablet, 20 MG PO QID PRN for AD, (Reported) Duloxetine Hcl 60 Mg Capsule.dr, 60 MG PO DAILY, (Reported) Mirtazapine 30 Mg Tablet, #30 (Reported) Multivitamins 1 Ea Tablet, 1 TAB PO DAILY, (Reported) Pantoprazole Sod 40 Mg Tab, 40 MG PO DAILY, (Reported) Quetiapine Fumarate 50 Mg Tablet, 50 MG PO BID PRN for WHEN TAKING CLONAZEPAM, ( Reported) Constitutional: see HPI, No chills, No diaphoresis, No dizziness, No fever, malaise, No weakness, No weight loss Respiratory: see HPI, No cough, No short of breath Cardiovascular: No chest pain, No edema, No syncope Gastrointestinal: see HPI, abdominal pain (left flank radiates down her side), No constipation, diarrhea (chronic), loss of appetite, No nausea, No vomiting Genitourinary: denies burning, denies dysuria, frequency, flank pain, denies hematuria, denies incontinence Skin: No pruritus, No rash Past Mflxuzs-Udofja-Gwzupy Hx Patient Social History Alcohol Use: Occasionally Uses Recreational Drug Use: No Smoking Status: Former Smoker Recent Foreign Travel: No Contact w/Someone Who Travel: No Recent Hopitalizations: No Immunizations Up To Date Date of Pneumonia Vaccine: Oct 11, 2013 Date of Influenza Vaccine: Jan 13, 2016 Surgeries HX Surgeries: Yes (HIATAL HERNIA, EGD, COLONOSCOPY, BREAT BIOPSY X2) Surgeries: Gallbladder Respiratory Hx Respiratory Disorders: No Cardiovascular Hx Cardiac Disorders: No Neurological Hx Neurological Disorders: No Reproductive System Hx Reproductive Disorders: No Sexually Transmitted Disease: No HIV/AIDS: No 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 Disorders: Denies Genitourinary Hx Genitourinary Disorders: No Gastrointestinal Hx Gastrointestinal Disorders: Yes Gastrointestinal Disorders: Chronic Constipation, Chronic Diarrhea, Irritable Bowel Musculoskeletal Hx Musculoskeletal Disorders: No Endocrine Hx Endocrine Disorders: No HEENT HX ENT Disorders: No HEENT Disorders: Cataract Loss of Vision: Denies Hearing Impairment: Denies Cancer Hx Cancer: No Psychosocial Hx Psychiatric Problems: Yes Behavioral Health Disorders: Anxiety Integumentary HX Skin/Integumentary Disorder: No Blood Transfusions Hx Blood Disorders: No Adverse Reaction to a Blood Tr: No Family Medical History Significant Family History: No Pertinent Family Hx Family Medial History: Cancer 19 MOTHER, Onset:Unknown Cancer of colon 19 FATHER Physical Exam Vital Signs Vital Sign - Last 12Hours 09/21/16 12:59 Temp 98.8 Pulse 76 Resp 18 B/P (MAP) 122/83 Pulse Ox 100 O2 Delivery Room Air Capillary Refill : General Appearance: WD/WN, mild distress HEENT: PERRL/EOMI, pharynx normal Neck: non-tender, normal inspection Cardiovascular: normal peripheral pulses, regular rate, rhythm, no edema, no murmur Respiratory: chest non-tender, lungs clear, normal breath sounds, no respiratory distress Gastrointestinal: normal bowel sounds, soft, no organomegaly, no pulsatile mass , tenderness (left flank) Back: normal inspection, no vertebral tenderness, No CVA tenderness (R), CVA tenderness (L) Extremities: normal inspection, no pedal edema Neurologic/Psychiatric: alert, oriented x 3 Skin: normal color, warm/dry Progress/Results/Core Measures Results/Orders Lab Results Laboratory Tests Test 09/21/16 13:10 09/21/16 13:21 Range/Units Urine Color YELLOW Urine Clarity SLIGHTLY CLOUDY Urine pH 7 5-9 Urine Specific [place] 1.010 L 1.016-1.022 Urine Protein 1+ H NEGATIVE Urine Glucose (UA) NEGATIVE NEGATIVE Urine Ketones NEGATIVE NEGATIVE Urine Nitrite NEGATIVE NEGATIVE Urine Bilirubin NEGATIVE NEGATIVE Urine Urobilinogen NORMAL NORMAL MG/DL Urine Leukocyte Esterase 3+ H NEGATIVE Urine RBC (Auto) 4+ H NEGATIVE Urine RBC 10-25 H /HPF Urine WBC 10-25 H /HPF Urine Squamous Epithelial Cells 5-10 /HPF Urine Crystals NONE /LPF Urine Bacteria FEW H /HPF Urine Casts NONE /LPF Urine Mucus NEGATIVE /LPF Urine Culture Indicated NO White Blood Count 9.5 4.3-11.0 10^3/uL Red Blood Count 4.49 4.35-5.85 10^6/uL Hemoglobin 13.4 11.5-16.0 G/DL Hematocrit 42 35-52 % Mean Corpuscular Volume 93 80-99 FL Mean Corpuscular Hemoglobin 30 25-34 PG Mean Corpuscular Hemoglobin Concent 32 32-36 G/DL Red Cell Distribution Width 14.0 10.0-14.5 % Platelet Count 291 130-400 10^3/uL Mean Platelet Volume 11.1 H 7.4-10.4 FL Neutrophils (%) (Auto) 66 42-75 % Lymphocytes (%) (Auto) 23 12-44 % Monocytes (%) (Auto) 10 0-12 % Eosinophils (%) (Auto) 2 0-10 % Basophils (%) (Auto) 0 0-10 % Neutrophils # (Auto) 6.2 1.8-7.8 X 10^3 Lymphocytes # (Auto) 2.2 1.0-4.0 X 10^3 Monocytes # (Auto) 0.9 0.0-1.0 X 10^3 Eosinophils # (Auto) 0.1 0.0-0.3 10^3/uL Basophils # (Auto) 0.0 0.0-0.1 10^3/uL Sodium Level 141 135-145 MMOL/L Potassium Level 4.2 3.6-5.0 MMOL/L Chloride Level 105 98-107 MMOL/L Carbon Dioxide Level 28 21-32 MMOL/L Anion Gap 8 5-14 MMOL/L Blood Urea Nitrogen 25 H 7-18 MG/DL Creatinine 1.00 0.60-1.30 MG/DL Estimat Glomerular Filtration Rate 55 BUN/Creatinine Ratio 25 Glucose Level 94 70-105 MG/DL Calcium Level 9.4 8.5-10.1 MG/DL Total Bilirubin 0.4 0.1-1.0 MG/DL Aspartate Amino Transf (AST/SGOT) 23 5-34 U/L Alanine Aminotransferase (ALT/SGPT) 20 0-55 U/L Alkaline Phosphatase 78 40-136 U/L Total Protein 6.7 6.4-8.2 G/DL Albumin 4.1 3.2-4.5 G/DL My Orders Orders - ADRIAN FORTUNE Ct Abd/Pelvis Wo(Kidney Stone) (09/21/16 13:12) Saline Lock/Iv-Start (09/21/16 13:12) Cbc With Automated Diff (09/21/16 13:12) Comprehensive Metabolic Panel (09/21/16 13:12) Ua Culture If Indicated (09/21/16 13:12) Vital Signs/I&O Vital Sign - Last 12Hours 09/21/16 12:59 Temp 98.8 Pulse 76 Resp 18 B/P (MAP) 122/83 Pulse Ox 100 O2 Delivery Room Air Progress Note : Time: 13:37 Progress Note Patient presents with history of stones and left flank pain. Review constitutional symptoms obtain basic labs that a CAT scan done as well as a UA. Concern for UTI versus stone versus other intra-abdominal process. Diagnostic Imaging Diagonstic Imaging: CT Plain Films/CT/US/NM/MRI: abdomen (pelvis) Comments VIA [facility]. [place], [place] NAME: JESSICATOPHER Naida [facility] REC#: [id number] PT STATUS: REG ER : 1950 PHYSICIAN: ADRIAN FORTUNE MD ADMIT DATE: 09/21/16/ER Draft Date of Exam:09/21/16 CT ABD/PELVIS WO(KIDNEY STONE) PROCEDURE: CT urinary tract, rule out kidney stone. TECHNIQUE: Multiple contiguous axial images were obtained through the abdomen and pelvis without the use of intravenous contrast. INDICATION: Left posterior pain stone versus UTI EXAMINATION: CT abdomen and pelvis without contrast dated 09/21/2016. COMPARISON: 05/13/2016 FINDINGS: Axial imaging of the abdomen and pelvis without contrast. There is a stone at the left UVJ approximately 3-4 mm in size. There is secondary mild to moderate left hydroureteronephrosis. Other calcifications along the course of the ureters appear to be vascular in nature. Tiny punctate stones bilaterally within the kidneys otherwise noted nonobstructive in nature. No stones or hydronephrosis noted within the right ureter or right renal collecting system. There is no free fluid in the abdomen nor the pelvis. Diverticulosis noted without evidence for acute diverticulitis. The appendix unremarkable. Atherosclerotic disease is noted. Remaining visualized abdominal viscera limited in evaluation due to lack of contrast but no gross acute abnormality seen in the liver or spleen. There is a hiatal hernia. Adrenal glands and pancreas grossly unremarkable. Evidence of pre-cholecystectomy noted. There is no acute osseous abnormality. Degenerative findings throughout the visualized spine noted. The lung bases demonstrate emphysematous changes with subpleural nodules noted at the left lung base which should be followed in 3 months to assure stability. Minimal basilar atelectasis noted at the left lung base. IMPRESSION: 1. Stone in the left UVJ causing mild left hydroureteronephrosis with bilateral nonobstructive stones in the kidneys. 2. Incidental findings otherwise noted in the abdomen and pelvis. 3. Subpleural nodule left lung base. Followup in 3 months recommended to assure stability. 4. Not mentioned in body report mild wall thickening of the urinary bladder is seen which could be due to underdistention although cystitis could cause a similar appearance correlate with symptoms. Dictated on workstation # [id number] Dict: 09/21/16 1354 Trans: 09/21/16 1401 [facility] [id number] Interpreted by: LC FELIZ MD Electronically signed by: Reviewed: Reviewed by Me Departure Impression Impression: Primary Impression: Hydronephrosis of left kidney Additional Impressions: Kidney stone on left side Cystitis Lung nodule seen on imaging study Disposition: 01 HOME, SELF-CARE Condition: Improved (ERASED) Departure-Patient Inst. Decision time for Depature: 15:37 Referrals: RICARDO SRIVASTAVA DAVID F MD (PCP/Family) Primary Care Physician Patient Instructions: Kidney Stones (DC) Add. Discharge Instructions: You have a 3-4 mm kidney stone at your junction of the left ureter and bladder. There is also evidence of infection. We will treat with antibiotics for 7 days and you should drink copious amounts of fluids as well as take the Flomax every night until you pass the stone. You should use a strainer in your urine to collect the stone; if you get it then take it to your doctor's office and they can have it tested to find out what kind of stone it is. Then you may figure out how to reduce the number and frequency of these stones in the future. You also have some stones up in the kidneys that are not bothering anything. You have a small nodule below and just outside of the lining of the left lung. Radiologist recommended to follow this up with another scan in 3 months just to make sure that this is not a concerning nodule. You should follow-up with her primary care physician for this. You should return to the ER if you're having high fevers, nausea, vomiting, inability to pass stone for several days. All discharge instructions reviewed with patient and/or family. Voiced understanding. Scripts Hydrocodone/Acetaminophen (Hydrocodon -Acetaminophen 5-325) 1 Each Tablet 1 EACH PO Q4H Y for PAIN, #20 TAB 0 Refills Prov: ADRIAN FORTUNE 09/21/16 Tamsulosin HCl (Flomax) 0.4 Mg Cap 0.4 MG PO HS for 10 Days, #10 CAP 0 Refills Prov: ADRIAN FORTUNE 09/21/16 Cephalexin (Keflex) 500 Mg Capsule 500 MG PO BID for 10 Days, #20 CAP 0 Refills Prov: ADRIAN FORTUNE 09/21/16 Copy Copies To 1: RICARDO SRIVASTAVA DO ADRIAN FORTUNE Sep 21, 2016 13:12
[2016-09-21 13:19] LABS: BILIRUBIN,URINE NEGATIVE (NEGATIVE); KETONES,URINE NEGATIVE (NEGATIVE); LEUKOCYTE ESTERASE ,URINE 3+ (NEGATIVE); NITRITE,URINE NEGATIVE (NEGATIVE); PH,URINE 7 (5-9); PROTEIN,URINE 1+ (NEGATIVE); UROBILINOGEN,URINE NORMAL (NORMAL)
[2016-09-21 13:30] LABS: BASOPHILS % (AUTO) 0 % (0-10); EOSINOPHILS # (AUTO) 0.1 10^3/uL (0.0-0.3); EOSINOPHILS % (AUTO) 2 % (0-10); LYMPHOCYTES # (AUTO) 2.2 X 10^3 (1.0-4.0); LYMPHOCYTES % (AUTO) 23 % (12-44); MEAN CORPUSCULAR HEMOGLOBIN 30 PG (25-34); MEAN CORPUSCULAR HGB CONC 32 G/DL (32-36); MEAN CORPUSCULAR VOLUME 93 FL (80-99); MEAN PLATELET VOLUME 11.1 FL (7.4-10.4); MONOCYTES # (AUTO) 0.9 X 10^3 (0.0-1.0); MONOCYTES % (AUTO) 10 % (0-12); NEUTROPHILS # (AUTO) 6.2 X 10^3 (1.8-7.8); NEUTROPHILS % (AUTO) 66 % (42-75); PLATELET COUNT 291 10^3/uL (130-400); RED BLOOD COUNT 4.49 10^6/uL (4.35-5.85); WHITE BLOOD COUNT 9.5 10^3/uL (4.3-11.0)
[2016-09-21 13:46] LABS: ALBUMIN 4.1 G/DL (3.2-4.5); BILIRUBIN,TOTAL 0.4 MG/DL (0.1-1.0); CALCIUM 9.4 MG/DL (8.5-10.1); POTASSIUM 4.2 MMOL/L (3.6-5.0); TOTAL PROTEIN 6.7 G/DL (6.4-8.2)
--- NOTE | 2016-09-21 14:02 | Diagnostic Imaging Report ---
PROCEDURE: CT urinary tract, rule out kidney stone. TECHNIQUE: Multiple contiguous axial images were obtained through the abdomen and pelvis without the use of intravenous contrast. INDICATION: Left posterior pain stone versus UTI EXAMINATION: CT abdomen and pelvis without contrast dated 09/21/2016. COMPARISON: 05/13/2016 FINDINGS: Axial imaging of the abdomen and pelvis without contrast. There is a stone at the left UVJ approximately 3-4 mm in size. There is secondary mild to moderate left hydroureteronephrosis. Other calcifications along the course of the ureters appear to be vascular in nature. Tiny punctate stones bilaterally within the kidneys otherwise noted nonobstructive in nature. No stones or hydronephrosis noted within the right ureter or right renal collecting system. There is no free fluid in the abdomen nor the pelvis. Diverticulosis noted without evidence for acute diverticulitis. The appendix unremarkable. Atherosclerotic disease is noted. Remaining visualized abdominal viscera limited in evaluation due to lack of contrast but no gross acute abnormality seen in the liver or spleen. There is a hiatal hernia. Adrenal glands and pancreas grossly unremarkable. Evidence of pre-cholecystectomy noted. There is no acute osseous abnormality. Degenerative findings throughout the visualized spine noted. The lung bases demonstrate emphysematous changes with subpleural nodules noted at the left lung base which should be followed in 3 months to assure stability. Minimal basilar atelectasis noted at the left lung base. IMPRESSION: 1. Stone in the left UVJ causing mild left hydroureteronephrosis with bilateral nonobstructive stones in the kidneys. 2. Incidental findings otherwise noted in the abdomen and pelvis. 3. Subpleural nodule left lung base. Followup in 3 months recommended to assure stability. 4. Not mentioned in body report mild wall thickening of the urinary bladder is seen which could be due to underdistention although cystitis could cause a similar appearance correlate with symptoms. Dictated by: Dictated on workstation # [id number]
[2016-09-21 16:45] VITALS: BP 113/82
== END | disposition home or self-care (01) ==
LOC: EDUNIT# 12:55 → ER 12:57
DX: N13.2 Hydronephrosis with renal and ureteral calculous obstruction (principal); N30.90 Cystitis, unspecified without hematuria; R91.1 Solitary pulmonary nodule; Z87.891 Personal history of nicotine dependence; Z87.19 Personal history of other diseases of the digestive system
CPT/HCPCS: 36415; 74176; 80053; 81000; 85025

== ENCOUNTER 2016-09-25 07:28 | Emergency (ER) | payer MEDICARE, OTHER ==
[~2016-09-25] VITALS: Ht 165.1 cm; Wt 69.9 kg
[2016-09-25] MEDS ORDERED: NS IV 1000 ML 1,000 ML IV ONE (07:36)
--- NOTE | 2016-09-25 07:43 | ED GU-Female ---
General Chief Complaint: Abdominal/GI Problems Stated Complaint: KIDNEY STONE PAIN Source: patient (PT SOMEWHAT LIMITED HISTORIAN), spouse History of Present Illness Time seen by provider: 07:37 Initial Comments PT ARRIVES VIA POV FROM HOME PT SEEN HERE 09/21/16 FOR UTI SYMPTOMS AND DX WITH LEFT DISTAL URETERAL STONE AND STARTED ON KEFLEX, FLOMAX, HYDROCODONE HAD BEEN SEEN BY DR. MARTINEZ AT [facility] THE DAY PRIOR FOR URINARY SYMPTOMS AND REGULAR MEDICATIONS WERE CHANGED--SEVERAL MEDICATIONS STOPPED AND STARTED ON REMERON --THIS WAS FIRST VISIT THERE PT HAS NOT ATTEMPTED TO FOLLOW UP WITH ANYONE SINCE ER VISIT, SHE WAS INSTRUCTED TO PT STATES SHE "DIDN'T KNOW WHAT TO DO" SO SHE CAME HERE. PT STATES SHE IS "NOT BETTER"--YET HAS NOT HAD LEFT FLANK PAIN SINCE SHE WAS SEEN HERE ON Friday09/21/16 NO ABDOMINAL PAIN NO NAUSEA/VOMITING NO FEVER ONLY C/O "FEELS LIKE KNIVES OR RAZOR BLADES" AND "SHOOTING PAINS" IN URETHRAL AREA, AND ONGOING SYMPTOMS OF URINARY URGENCY AND FREQUENCY--ON REVIEW OF OLD RECORDS, THESE ARE CHRONIC SYMPTOMS FOR AT LEAST 3 YEARS. NO RELIEF WITH HYDROCODONE X 1 LAST PM HAS STRAINED URINE A FEW TIMES AND DID PASS WHAT LOOKED LIKE SAND PT DOES HAVE HISTORY OF BOTH UTI'S AND KIDNEY STONES IN PAST, BUT DOES NOT SEE A UROLOGIST--DID HAVE UROLOGY CONSULT WHEN IN HOSPITAL IN [place] FOR THESE SYMPTOMS, ALONG WITH CHRONIC ABDOMINAL PAIN---PT HAD CYSTOSCOPY AND LITHOTRIPSY OF LEFT RENAL STONE AT THAT TIME. PT HAS NOT FOLLOWED UP WITH DR. ROSADO SINCE THEN PCP: DR. SRIVASTAVA, HAS ALSO STARTED SEEING DR. MARTINEZ AT [facility] Allergies and Home Medications Allergies Coded Allergies: No Known Drug Allergies (Verified , 11/03/07) Home Medications Calcium Carbonate/Vitamin D3 1 Tab Tablet, 1 TAB PO DAILY, (Reported) Cephalexin 500 Mg Capsule, 500 MG PO BID for 10 Days, #20 Ref 0 Prescribed by: ADRIAN FORTUNE on 09/21/16 1551 Clonazepam 1 Mg Tablet, 1 MG PO BID PRN for ANXIETY, (Reported) Colestipol HCl 1 Gm Tablet, 1 GM PO DAILY, (Reported) Cyanocobalamin 100 Mcg Tablet, 100 MCG PO DAILY, (Reported) Dicyclomine HCl 20 Mg Tablet, 20 MG PO QID PRN for AD, (Reported) Duloxetine Hcl 60 Mg Capsule.dr, 60 MG PO DAILY, (Reported) Hydrocodone/Acetaminophen 1 Each Tablet, 1 EACH PO Q4H PRN for PAIN, #20 Ref 0 Prescribed by: ADRIAN FORTUNE on 09/21/16 1551 Mirtazapine 30 Mg Tablet, #30 (Reported) Multivitamins 1 Ea Tablet, 1 TAB PO DAILY, (Reported) Pantoprazole Sod 40 Mg Tab, 40 MG PO DAILY, (Reported) Quetiapine Fumarate 50 Mg Tablet, 50 MG PO BID PRN for WHEN TAKING CLONAZEPAM, ( Reported) Tamsulosin HCl 0.4 Mg Cap, 0.4 MG PO HS for 10 Days, #10 Ref 0 Prescribed by: ADRIAN FORTUNE on 09/21/161550 Constitutional: no symptoms reported Respiratory: no symptoms reported Cardiovascular: no symptoms reported Gastrointestinal: no symptoms reported Genitourinary: see HPI, frequency, denies flank pain, denies hematuria, pain, urgency Musculoskeletal: no symptoms reported, No back pain Skin: no symptoms reported Psychiatric/Neurological: Anxiety Endocrine: No Symptoms Reported Hematologic/Lymphatic: No Symptoms Reported Past Ihhlwnt-Kwcbkz-Tbgmme Hx Patient Social History Alcohol Use: Denies Use Recreational Drug Use: No Smoking Status: Never a Smoker Recent Foreign Travel: No Contact w/Someone Who Travel: No Recent Hopitalizations: No Immunizations Up To Date Date of Pneumonia Vaccine: Oct 11, 2013 Date of Influenza Vaccine: Jan 13, 2016 Surgeries HX Surgeries: Yes (HIATAL HERNIA, EGD, COLONOSCOPY, BREAT BIOPSY X2; CYSTOSCOPY AND LITHOTRIPSY 05/2016) Surgeries: Abdominal, Bladder Surgery, Breast, Gallbladder, Renal Respiratory Hx Respiratory Disorders: No Cardiovascular Hx Cardiac Disorders: No Neurological Hx Neurological Disorders: No Reproductive System Hx Reproductive Disorders: No Sexually Transmitted Disease: No HIV/AIDS: No 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 Disorders: Denies Genitourinary Hx Genitourinary Disorders: Yes (CHRONIC URETHRAL PAIN ) Genitourinary Disorders: Bladder Infection, Kidney Stones Gastrointestinal Hx Gastrointestinal Disorders: Yes (CHRONIC ABDOMINAL PAIN) Gastrointestinal Disorders: Chronic Constipation, Chronic Diarrhea, Irritable Bowel Musculoskeletal Hx Musculoskeletal Disorders: No Endocrine Hx Endocrine Disorders: No HEENT HX ENT Disorders: Yes HEENT Disorders: Cataract Loss of Vision: Denies Hearing Impairment: Denies Cancer Hx Cancer: No Psychosocial Hx Psychiatric Problems: Yes Behavioral Health Disorders: Anxiety Integumentary HX Skin/Integumentary Disorder: No Blood Transfusions Hx Blood Disorders: No Adverse Reaction to a Blood Tr: No Family Medical History Significant Family History: No Pertinent Family Hx Family Medial History: Cancer 19 MOTHER, Onset:Unknown Cancer of colon 19 FATHER Physical Exam Vital Signs Vital Sign - Last 12Hours 09/25/16 07:47 Temp 97.8 Pulse 70 Resp 16 B/P (MAP) 115/63 Pulse Ox 98 O2 Delivery Room Air Capillary Refill : General Appearance: WD/WN, no apparent distress Cardiovascular: regular rate, rhythm, no murmur Respiratory: normal breath sounds Gastrointestinal: normal bowel sounds, non tender, soft, no organomegaly, no pulsatile mass Back: no CVA tenderness Extremities: normal inspection 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, no motor/sensory deficits, alert, oriented x 3 (SOME LIMITED MEMORY) Skin: normal color, warm/dry Progress/Results/Core Measures Results/Orders Lab Results Laboratory Tests Test 09/25/16 07:35 09/25/16 08:15 Range/Units Urine Color YELLOW Urine Clarity CLEAR Urine pH 5 5-9 Urine Specific [place] 1.020 1.016-1.022 Urine Protein 1+ H NEGATIVE Urine Glucose (UA) NEGATIVE NEGATIVE Urine Ketones NEGATIVE NEGATIVE Urine Nitrite NEGATIVE NEGATIVE Urine Bilirubin NEGATIVE NEGATIVE Urine Urobilinogen NORMAL NORMAL MG/DL Urine Leukocyte Esterase 2+ H NEGATIVE Urine RBC (Auto) 4+ H NEGATIVE Urine RBC 5-10 H /HPF Urine WBC 10-25 H /HPF Urine Squamous Epithelial Cells 10-25 H /HPF Urine Crystals PRESENT H /LPF Urine Uric Acid Crystals FEW H /LPF Urine Bacteria TRACE /HPF Urine Casts NONE /LPF Urine Mucus SMALL H /LPF Urine Culture Indicated YES White Blood Count 8.5 4.3-11.0 10^3/uL Red Blood Count 4.67 4.35-5.85 10^6/uL Hemoglobin 13.8 11.5-16.0 G/DL Hematocrit 44 35-52 % Mean Corpuscular Volume 93 80-99 FL Mean Corpuscular Hemoglobin 30 25-34 PG Mean Corpuscular Hemoglobin Concent 32 32-36 G/DL Red Cell Distribution Width 13.9 10.0-14.5 % Platelet Count 269 130-400 10^3/uL Mean Platelet Volume 11.7 H 7.4-10.4 FL Neutrophils (%) (Auto) 62 42-75 % Lymphocytes (%) (Auto) 27 12-44 % Monocytes (%) (Auto) 9 0-12 % Eosinophils (%) (Auto) 3 0-10 % Basophils (%) (Auto) 0 0-10 % Neutrophils # (Auto) 5.3 1.8-7.8 X 10^3 Lymphocytes # (Auto) 2.3 1.0-4.0 X 10^3 Monocytes # (Auto) 0.7 0.0-1.0 X 10^3 Eosinophils # (Auto) 0.2 0.0-0.3 10^3/uL Basophils # (Auto) 0.0 0.0-0.1 10^3/uL Sodium Level 142 135-145 MMOL/L Potassium Level 3.9 3.6-5.0 MMOL/L Chloride Level 106 98-107 MMOL/L Carbon Dioxide Level 24 21-32 MMOL/L Anion Gap 12 5-14 MMOL/L Blood Urea Nitrogen 22 H 7-18 MG/DL Creatinine 0.81 0.60-1.30 MG/DL Estimat Glomerular Filtration Rate > 60 BUN/Creatinine Ratio 27 H 0-20 Glucose Level 98 70-105 MG/DL Calcium Level 9.9 8.5-10.1 MG/DL Total Bilirubin 0.4 0.1-1.0 MG/DL Aspartate Amino Transf (AST/SGOT) 25 5-34 U/L Alanine Aminotransferase (ALT/SGPT) 24 0-55 U/L Alkaline Phosphatase 73 40-136 U/L Total Protein 7.5 6.4-8.2 GM/DL Albumin 4.2 3.2-4.5 GM/DL Amylase Level 73 25-125 U/L Lipase 55 8-78 U/L My Orders Orders - GUERO BURNS DO Ct Abd/Pelvis Wo(Kidney Stone) (09/25/16 07:36) Amylase (09/25/16 07:36) Cbc With Automated Diff (09/25/16 07:36) Comprehensive Metabolic Panel (09/25/16 07:36) Lipase (09/25/16 07:36) Ua Culture If Indicated (09/25/16 07:36) Acute Abd Series (09/25/16 07:36) Saline Lock/Iv-Start (09/25/16 07:36) Ns Iv 1000 Ml (Sodium Chloride 0.9%) (09/25/16 07:36) Urine Culture (09/25/16 07:46) Ketorolac Injection (Toradol Injection) (09/25/16 08:00) Phenazopyridine Tablet (Pyridium Tablet) (09/25/16 08:00) Medications Given in ED Current Medications Medications Dose Ordered Sig/Yoni Route Start Time Stop Time Status Last Admin Dose Admin Ketorolac Tromethamine 30 mg ONCE ONCE IVP 09/25/16 08:00 09/25/16 08:01 DC 09/25/16 07:59 30 MG Phenazopyridine HCl 200 mg ONCE ONCE PO 09/25/16 08:00 09/25/16 08:01 DC 09/25/16 07:59 200 MG Sodium Chloride 1,000 ml @ 0 mls/hr Q0M ONCE IV 09/25/16 07:36 09/25/16 07:38 DC 09/25/16 08:00 1,000 MLS/HR Vital Signs/I&O Vital Sign - Last 12Hours 09/25/16 09/25/16 07:47 07:59 Temp 97.8 97.8 Pulse 70 Resp 16 B/P (MAP) 115/63 Pulse Ox 98 O2 Delivery Room Air Progress Note : Progress Note SYMPTOMS IMPROVED AT DISMISSAL Diagnostic Imaging Comments CT ABDOMEN/PELVIS--6 MM STONE AT URINARY BLADDER WITH MILD LEFT HYDRONEPHROSIS, 2 SMALL RIGHT INTRARENAL STONES ACUTE ABDOMEN XRAYS--NO ACUTE PROCESS PER RADIOLOGIST REPORTS @ 0903 Reviewed: Reviewed by Me Departure Impression Impression: Primary Impression: Calculus of distal left ureter Additional Impression: UTI (urinary tract infection) Disposition: 01 HOME, SELF-CARE Condition: Improved Departure-Patient Inst. Referrals: ROBYN MARTINEZ MD (PCP/Family) Primary Care Physician WAYNE ROSADO MD Patient Instructions: Kidney Stones (DC), Urinary Tract Infection, Adult (DC) Add. Discharge Instructions: LOTS OF CLEAR LIQUIDS CONTINUE YOUR HYDROCODONE--2 PILLS EVERY 4 HOURS FOR PAIN CONTINUE TAMSULOSIN STOP KEFLEX FOLLOW UP WITH DR. ROSADO THIS WEEK FOR FURTHER CARE All discharge instructions reviewed with patient and/or family. Voiced understanding. Scripts Ketorolac Tromethamine (Ketorolac Tromethamine) 10 Mg Tablet 10 MG PO Q6H for Pain, #15 TAB Prov: GUERO BURNS DO 09/25/16 Phenazopyridine HCl (Pyridium) 200 Mg Tablet 1 TAB PO TID for BLADDER DISCOMFORT, #15 TAB Prov: GUERO BURNS DO 09/25/16 Nitrofurantoin Monohyd/M-Cryst (Macrobid 100 mg Capsule) 100 Mg Capsule 100 MG PO BID, #20 CAP Prov: GUERO BURNS DO 09/25/16 GUERO BURNS DO Sep 25, 2016 07:43
[2016-09-25 07:55] LABS: BILIRUBIN,URINE NEGATIVE (NEGATIVE); KETONES,URINE NEGATIVE (NEGATIVE); LEUKOCYTE ESTERASE ,URINE 2+ (NEGATIVE); NITRITE,URINE NEGATIVE (NEGATIVE); PH,URINE 5 (5-9); PROTEIN,URINE 1+ (NEGATIVE); UROBILINOGEN,URINE NORMAL (NORMAL)
[2016-09-25] MEDS ORDERED: PHENAZOPYRIDINE 100 MG (PYRIDIUM) TABLET PO ONE (08:00)
[2016-09-25] MEDS ORDERED: KETOROLAC 30 MG/ML VIAL IVP ONE (08:00)
[2016-09-25 08:12] LABS: URIC ACID CRYSTALS,URINE FEW /LPF
[2016-09-25 08:22] LABS: BASOPHILS % (AUTO) 0 % (0-10); EOSINOPHILS # (AUTO) 0.2 10^3/uL (0.0-0.3); EOSINOPHILS % (AUTO) 3 % (0-10); LYMPHOCYTES # (AUTO) 2.3 X 10^3 (1.0-4.0); LYMPHOCYTES % (AUTO) 27 % (12-44); MEAN CORPUSCULAR HEMOGLOBIN 30 PG (25-34); MEAN CORPUSCULAR HGB CONC 32 G/DL (32-36); MEAN CORPUSCULAR VOLUME 93 FL (80-99); MEAN PLATELET VOLUME 11.7 FL (7.4-10.4); MONOCYTES # (AUTO) 0.7 X 10^3 (0.0-1.0); MONOCYTES % (AUTO) 9 % (0-12); NEUTROPHILS # (AUTO) 5.3 X 10^3 (1.8-7.8); NEUTROPHILS % (AUTO) 62 % (42-75); PLATELET COUNT 269 10^3/uL (130-400); RED BLOOD COUNT 4.67 10^6/uL (4.35-5.85); RED CELL DISTRIBUTION WIDTH 13.9 % (10.0-14.5); WHITE BLOOD COUNT 8.5 10^3/uL (4.3-11.0)
[2016-09-25 08:42] LABS: ALANINE AMINOTRANSFERASE 24 U/L (0-55); ALBUMIN 4.2 GM/DL (3.2-4.5); AMYLASE 73 U/L (25-125); ANION GAP 12 MMOL/L (5-14); ASPARTATE AMINO TRANSFERASE 25 U/L (5-34); BILIRUBIN,TOTAL 0.4 MG/DL (0.1-1.0); BLOOD UREA NITROGEN 22 MG/DL (7-18); BUN/CREATININE RATIO 27 (0-20); CALCIUM 9.9 MG/DL (8.5-10.1); CARBON DIOXIDE 24 MMOL/L (21-32); CHLORIDE 106 MMOL/L (98-107); CREATININE SERUM 0.81 MG/DL (0.60-1.30); GFR ESTIMATED > 60; GLUCOSE 98 MG/DL (70-105); LIPASE 55 U/L (8-78); POTASSIUM 3.9 MMOL/L (3.6-5.0); SODIUM 142 MMOL/L (135-145); TOTAL PROTEIN 7.5 GM/DL (6.4-8.2)
--- NOTE | 2016-09-25 08:46 | Diagnostic Imaging Report ---
INDICATION: Acute abdominal series. INDICATION: Abdominal and pelvic pain. FINDINGS: The lungs are clear. The heart size is normal. No effusion or pneumothorax. The mediastinum and dixon appear unremarkable. The thoracic aorta is tortuous. Surgical clips around the GE junction region are seen. There is no pneumoperitoneum. Minimal air/fluid levels in the small bowel loops are seen of questionable significance. No significantly dilated bowel loops. Large amounts of fecal material are seen in the colon without significant dilatation. Calcifications seen in the pelvis are likely phleboliths. IMPRESSION: Large amounts of fecal material are seen in the colon and rectum. Dictated by: Dictated on workstation # [id number]
--- NOTE | 2016-09-25 09:00 | Diagnostic Imaging Report ---
PROCEDURE: CT urinary tract, rule out kidney stone. TECHNIQUE: Multiple contiguous axial images were obtained through the abdomen and pelvis without the use of intravenous contrast. INDICATION: Lower pelvis pain. FINDINGS: There is a small/ moderate hiatal hernia. Surgical clips near the GE junction are seen. The lung bases are clear. There is a 4-mm subpleural nodule in the lateral aspect of the left lower lobe which appears to be present on 10/26/2007, exam compatible with benign etiology. The liver, the spleen, the pancreas, and the adrenal glands appear unremarkable for an unenhanced exam. Cholecystectomy clips are seen. There is mild dilatation of the CBD up to 1.2 cm in caliber. This appears slightly more prominent compared to 09/21/2016. If there is definite clinical evidence of cholestasis, then evaluation with MRCP could be of benefit. The left kidney demonstrates mild hydronephrosis, and there is mild left hydroureter. This is related to a urinary bladder stone measuring 6 mm at the ostium of the left ureter projecting into the lumen of the urinary bladder. Nonobstructive 2-mm stones in the mid and lower aspects of the right kidney are seen. No stone in the right ureter. There is diverticulosis mostly involving the sigmoid colon. No diverticulitis. The appendix appears normal in caliber with no evidence of inflammation. There is, however, dense material in its lumen that may represent an appendicolith. There is no significant free fluid or fluid collection in the abdomen or pelvis. The osseous structures appear grossly unremarkable. IMPRESSION: 1. There is mild left hydroureteronephrosis secondary to a 6-mm stone at the orifice of the left ureter projecting into the bladder. 2. Nonobstructive 2-mm stones in the mid and lower right kidney. 3. Small/ moderate hiatal hernia. 4. Diverticulosis. No diverticulitis. Dictated by: Dictated on workstation # [id number]
[2016-09-25] MEDS ORDERED: NITR-65 PO (09:06)
[2016-09-25] MEDS ORDERED: KETO10TA PO (09:06)
[2016-09-25] MEDS ORDERED: PHEN-640 PO (09:06)
[2016-09-25 09:26] VITALS: BP 116/64
== END 2016-09-25 09:26 | disposition home or self-care (01) ==
LOC: EDUNIT# 07:28 → ER 07:31
DX: N20.1 Calculus of ureter (principal); N39.0 Urinary tract infection, site not specified
CPT/HCPCS: 36415; 74022; 74176; 80053; 81000; 82150; 83690; 85025; 87088; 96361; 96374

== ENCOUNTER 2016-09-27 10:02 | Emergency (ER) | payer MEDICARE, OTHER ==
[~2016-09-27] VITALS: Ht 165.1 cm; Wt 69.9 kg
[~2016-09-27 10:02] MED LIST changes: +KETO10TA PO; +NITR-65 PO; +PHEN-640 PO
[2016-09-27] MEDS ORDERED: NS IV 1000 ML 1,000 ML IV SCH (10:45)
[2016-09-27] MEDS ORDERED: fentaNYL INJECTION 100 MCG/2 ML AMP IVP ONE ×2 (10:45→12:30)
[2016-09-27] MEDS ORDERED: LORazepam INJ 2 MG/ML (ATIVAN) VIAL IVP ONE (10:45)
[2016-09-27 10:55] LABS: BILIRUBIN,URINE NEGATIVE (NEGATIVE); KETONES,URINE NEGATIVE (NEGATIVE); LEUKOCYTE ESTERASE ,URINE NEGATIVE (NEGATIVE); NITRITE,URINE NEGATIVE (NEGATIVE); PH,URINE 8 (5-9); PROTEIN,URINE NEGATIVE (NEGATIVE); UROBILINOGEN,URINE NORMAL (NORMAL)
--- NOTE | 2016-09-27 11:02 | ED Abdominal Pain ---
General Chief Complaint: -Female Stated Complaint: ABD PAIN/KIDNEY STONE HX Nursing Triage Note: AMB TO ROOM HAS BEEN SEEN IN ED AND TREATED FOR URINARY SYMPTOMS WITH VAG PAIN FOR YEAR. HAS BEEN TREATED TO SEE DR ROSADO. PAIN MEDS NOT HELPING. Sepsis Screen: No Definite Risk Source of Information: Patient, Family Exam Limitations: No Limitations History of Present Illness Time Seen By Provider: 10:58 Initial Comments This 58-year-old white female presents with suprapubic pain radiating her left flank similar to a previous kidney stone that she had approximately 6 months ago. The patient's pain has been present for the last 3 days. It is sharp in nature. It is severe in quality. Patient was evaluated in the emergency department here [address] on [address] exam was found to have a 6 mm UVJ stone with associated mild hydronephrosis. The patient has had no associated fever, chills, vomiting, headache, stiff neck , shortness of breath, cough, or hematuria. Next Best information at this point is that our urologist, Dr. Rosado, is out of town. Dr. Srivastava recommended we call Dr. Parkinson who covers for Dr. Rosado. Allergies and Home Medications Allergies Coded Allergies: No Known Drug Allergies (Verified , 11/03/07) Home Medications Calcium Carbonate/Vitamin D3 1 Tab Tablet, 1 TAB PO DAILY, (Reported) Cephalexin 500 Mg Capsule, 500 MG PO BID for 10 Days, #20 Ref 0 Prescribed by: ADRIAN FORTUNE on 09/21/16 1551 Clonazepam 1 Mg Tablet, 1 MG PO BID PRN for ANXIETY, (Reported) Colestipol HCl 1 Gm Tablet, 1 GM PO DAILY, (Reported) Cyanocobalamin 100 Mcg Tablet, 100 MCG PO DAILY, (Reported) Dicyclomine HCl 20 Mg Tablet, 20 MG PO QID PRN for AD, (Reported) Duloxetine Hcl 60 Mg Capsule., 60 MG PO DAILY, (Reported) Hydrocodone/Acetaminophen 1 Each Tablet, 1 EACH PO Q4H PRN for PAIN, #20 Ref 0 Prescribed by: ADRIAN FORTUNE on 09/21/16 1551 Ketorolac Tromethamine 10 Mg Tablet, 10 MG PO Q6H, #15 Prescribed by: GUERO BURNS on 09/25/16 0906 Mirtazapine 30 Mg Tablet, #30 (Reported) Multivitamins 1 Ea Tablet, 1 TAB PO DAILY, (Reported) Nitrofurantoin Monohyd/M-Cryst 100 Mg Capsule, 100 MG PO BID, #20 Prescribed by: GUERO BURNS on 09/25/16 0906 Pantoprazole Sod 40 Mg Tab, 40 MG PO DAILY, (Reported) Phenazopyridine HCl 200 Mg Tablet, 1 TAB PO TID, #15 Prescribed by: GUERO BURNS on 09/25/16 0906 Quetiapine Fumarate 50 Mg Tablet, 50 MG PO BID PRN for WHEN TAKING CLONAZEPAM, ( Reported) Tamsulosin HCl 0.4 Mg Cap, 0.4 MG PO HS for 10 Days, #10 Ref 0 Prescribed by: ADRIAN FORTUNE on 09/21/16 1551 Review of Systems Constitutional: No chills, No fever EENTM: No Blurred Vision Respiratory: Denies Cough Cardiovascular: Denies Chest Pain Gastrointestinal: Abdominal Pain Genitourinary: Denies Burning, Denies Discharge Musculoskeletal: back pain (left flank. ) Skin: No change in color Psychiatric/Neurological: Anxiety Endocrine: No Symptoms Reported Hematologic/Lymphatic: No Symptoms Reported Past Vdtmoka-Cutkaf-Urokog Hx Patient Social History Alcohol Use: Occasionally Uses Recreational Drug Use: No Recent Foreign Travel: No Contact w/Someone Who Travel: No Recent Infectious Disease Expo: No Recent Hopitalizations: No Immunizations Up To Date Date of Pneumonia Vaccine: Oct 11, 2013 Date of Influenza Vaccine: Jan 13, 2016 Surgeries HX Surgeries: Yes Surgeries: Abdominal, Bladder Surgery, Breast, Gallbladder, Renal Respiratory Hx Respiratory Disorders: No Cardiovascular Hx Cardiac Disorders: No Neurological Hx Neurological Disorders: No Reproductive System Hx Reproductive Disorders: No Sexually Transmitted Disease: No HIV/AIDS: No 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 Disorders: Denies Genitourinary Hx Genitourinary Disorders: Yes (CHRONIC URETHRAL PAIN ) Genitourinary Disorders: Bladder Infection, Kidney Stones Gastrointestinal Hx Gastrointestinal Disorders: Yes (CHRONIC ABDOMINAL PAIN) Gastrointestinal Disorders: Chronic Constipation, Chronic Diarrhea, Irritable Bowel Musculoskeletal Hx Musculoskeletal Disorders: No Endocrine Hx Endocrine Disorders: No HEENT HX ENT Disorders: Yes HEENT Disorders: Cataract Loss of Vision: Denies Hearing Impairment: Denies Cancer Hx Cancer: No Psychosocial Hx Psychiatric Problems: Yes Behavioral Health Disorders: Anxiety Integumentary HX Skin/Integumentary Disorder: No Blood Transfusions Hx Blood Disorders: No Adverse Reaction to a Blood Tr: No Reviewed Nursing Assessment Reviewed/Agree w Nursing PMH: Yes Family Medical History Significant Family History: No Pertinent Family Hx Family Medial History: Cancer 19 MOTHER, Onset:Unknown Cancer of colon 19 FATHER Physical Exam Vital Signs VS - Last 72 Hours, by Label 09/27/16 10:07 Temp 98.8 Pulse 81 Resp 18 B/P (MAP) 134/92 Capillary Refill : Less Than 3 Seconds General Appearance: WD/WN, mild distress HEENT: normal ENT inspection Neck: normal inspection Respiratory: lungs clear Cardiovascular: regular rate, rhythm Gastrointestinal: non tender, soft Extremities: normal range of motion, normal inspection Back: normal inspection Neurologic/Psychiatric: consulting services manager II-XII nml as tested, no motor/sensory deficits, alert, oriented x 3 Skin: normal color Progress/Results/Core Measures Results/Orders Lab Results Laboratory Tests Test 09/27/16 10:32 Range/Units Urine Color YELLOW Urine Clarity CLEAR Urine pH 8 5-9 Urine Specific [place] 1.015 L 1.016-1.022 Urine Protein NEGATIVE NEGATIVE Urine Glucose (UA) NEGATIVE NEGATIVE Urine Ketones NEGATIVE NEGATIVE Urine Nitrite NEGATIVE NEGATIVE Urine Bilirubin NEGATIVE NEGATIVE Urine Urobilinogen NORMAL NORMAL MG/DL Urine Leukocyte Esterase NEGATIVE NEGATIVE Urine RBC (Auto) NEGATIVE NEGATIVE Urine RBC NONE /HPF Urine WBC NONE /HPF Urine Squamous Epithelial Cells 2-5 /HPF Urine Crystals NONE /LPF Urine Bacteria NEGATIVE /HPF Urine Casts NONE /LPF Urine Mucus NEGATIVE /LPF Urine Culture Indicated NO My Orders Orders - ROWAN THAO MD Ua Culture If Indicated (09/27/16 10:25) Ns Iv 1000 Ml (Sodium Chloride 0.9%) (09/27/16 10:45) Fentanyl Injection (Sublimaze Injection (09/27/16 10:45) Lorazepam Injection (Ativan Injection) (09/27/16 10:45) Fentanyl Injection (Sublimaze Injection (09/27/16 12:30) Lorazepam Tablet (Ativan Tablet) (09/27/16 13:00) Medications Given in ED Current Medications Medications Dose Ordered Sig/Yoni Route Start Time Stop Time Status Last Admin Dose Admin Fentanyl Citrate 50 mcg ONCE ONCE IVP 09/27/16 10:45 09/27/16 10:46 DC 09/27/16 11:23 50 MCG Fentanyl Citrate 50 mcg ONCE ONCE IVP 09/27/16 12:30 09/27/16 12:31 DC 09/27/16 12:32 50 MCG Lorazepam 2 mg ONCE ONCE IVP 09/27/16 10:45 09/27/16 10:46 DC 09/27/16 11:21 2 MG Vital Signs/I&O Vital Sign - Last 12Hours 09/27/16 10:07 Temp 98.8 Pulse 81 Resp 18 B/P (MAP) 134/92 Blood Pressure Mean: 106 Progress Note : Time: 12:56 Progress Note The patient's urinalysis was essentially unremarkable. Review of the CT of the abdomen and pelvis demonstrated a 6 cm stone at the UVJ. Dr. Parkinson was kind enough to accept the patient in transfer to should note where he will instrument her this afternoon. The patient's pain and anxiety were adequately treated in the emergency department with fentanyl and Ativan. Telephone consultation was undertaken with the nurses at [facility] and the transfer form was completed. The plan is for the patient to travel by private vehicle to [place] for evaluation with Dr. Parkinson this afternoon. Patient was discharged from the emergency department in stable and improved condition. Departure Impression Impression: Primary Impression: Kidney stone on left side Disposition: SHT-TRM HOSP Condition: Improved Transfer Transfer Notes Patient was transferred to [place] to Dr. Parkinson by POV. Transfer Time: 13:02 Transfer Facility: [facility] Method of Transfer: Private Vehicle Departure-Patient Inst. Referrals: RICARDO SRIVASTAVA DO (PCP/Family) Primary Care Physician ROWAN THAO MD Sep 27, 2016 11:02
[2016-09-27 13:00] VITALS: BP 111/75
[2016-09-27] MEDS ORDERED: LORazepam 1 MG (ATIVAN) TAB PO ONE (13:00)
[2016-09-27] MEDS ORDERED: LORazepam 0.5 MG (ATIVAN) TABLET PO ONE (13:15)
== END 2016-09-27 13:18 | disposition short-term general hospital (02) ==
LOC: EDUNIT# 10:02 → ER 10:05
DX: N20.0 Calculus of kidney (principal); Z87.448 Personal history of other diseases of urinary system
CPT/HCPCS: 81000; 99282

== ENCOUNTER 2016-10-02 19:54 | Observation (INO) | payer MEDICARE, OTHER ==
[~2016-10-02 19:54] MED LIST changes: -MIRT30TA6; +MIRT30TA6 PO
[2016-10-02] MEDS ORDERED: MEMA10TA22 PO (21:22)
[2016-10-02] MEDS ORDERED: DIVA125T3 PO (21:22)
[2016-10-02] MEDS ORDERED: ATOR20TA66 PO (21:22)
[2016-10-02] MEDS ORDERED: DONE10TA41 PO (21:22)
[2016-10-02] MEDS ORDERED: LORA1TAB PO (21:22)
[2016-10-02] MEDS ORDERED: NS IV 1000 ML 1,000 ML ONE (22:23)
[2016-10-02] MEDS ORDERED: NS W/KCL 20 MEQ/L 1,000 ML IV ONE (22:30)
[2016-10-02] MEDS ORDERED: NS W/KCL 20 MEQ/L 1,000 ML IV SCH (23:15)
[2016-10-02] MEDS ORDERED: NALOXONE 0.4 MG/ML 1 ML (NARCAN) VIAL IV PRN (23:15)
[2016-10-03] MEDS ORDERED: LOPERAMIDE 2 MG (IMODIUM) CAP PO PRN (10:00)
== END 2016-10-03 11:09 | disposition home or self-care (01) ==
DX: F19.982 Other psychoactive substance use, unspecified with psychoactive substance-induced sleep disorder (principal); F13.982 Sedative, hypnotic or anxiolytic use, unspecified with sedative, hypnotic or anxiolytic-induced sleep disorder; G30.9 Alzheimer's disease, unspecified; F02.80 Dementia in other diseases classified elsewhere, unspecified severity, without behavioral disturbance, psychotic disturbance, mood disturbance, and anxiety; Z96.0 Presence of urogenital implants; Z87.442 Personal history of urinary calculi

== ENCOUNTER 2016-10-28 12:56 | Emergency (ER) | payer MEDICARE, OTHER ==
[~2016-10-28] VITALS: Ht 165.1 cm; Wt 64.5 kg
[~2016-10-28 12:56] MED LIST changes: +ATOR20TA66 PO; +DIVA125T3 PO; +DONE10TA41 PO; +LORA1TAB PO; +MEMA10TA22 PO
[2016-10-28 13:32] LABS: BASOPHILS % (AUTO) 0 % (0-10); EOSINOPHILS % (AUTO) 0 % (0-10); LYMPHOCYTES # (AUTO) 1.8 X 10^3 (1.0-4.0); LYMPHOCYTES % (AUTO) 21 % (12-44); MEAN CORPUSCULAR HEMOGLOBIN 29 PG (25-34); MEAN CORPUSCULAR HGB CONC 34 G/DL (32-36); MEAN CORPUSCULAR VOLUME 87 FL (80-99); MEAN PLATELET VOLUME 11.9 FL (7.4-10.4); MONOCYTES # (AUTO) 0.6 X 10^3 (0.0-1.0); MONOCYTES % (AUTO) 7 % (0-12); NEUTROPHILS # (AUTO) 6.2 X 10^3 (1.8-7.8); NEUTROPHILS % (AUTO) 72 % (42-75); PLATELET COUNT 300 10^3/uL (130-400); RED BLOOD COUNT 4.87 10^6/uL (4.35-5.85); WHITE BLOOD COUNT 8.6 10^3/uL (4.3-11.0)
[2016-10-28] MEDS ORDERED: NS IV 1000 ML 1,000 ML IV ONE (13:39)
[2016-10-28] MEDS ORDERED: LORazepam INJ 2 MG/ML (ATIVAN) VIAL IVP ONE (13:45)
[2016-10-28 13:54] LABS: ALANINE AMINOTRANSFERASE 26 U/L (0-55); ALBUMIN 4.6 GM/DL (3.2-4.5); ANION GAP 14 MMOL/L (5-14); ASPARTATE AMINO TRANSFERASE 19 U/L (5-34); BILIRUBIN,TOTAL 0.6 MG/DL (0.1-1.0); BLOOD UREA NITROGEN 14 MG/DL (7-18); BUN/CREATININE RATIO 18; CARBON DIOXIDE 21 MMOL/L (21-32); CHLORIDE 102 MMOL/L (98-107); CREATININE SERUM 0.76 MG/DL (0.60-1.30); GFR ESTIMATED > 60; GLUCOSE 101 MG/DL (70-105); MAGNESIUM 1.9 MG/DL (1.8-2.4); POTASSIUM 3.4 MMOL/L (3.6-5.0); SODIUM 137 MMOL/L (135-145); TOTAL PROTEIN 7.5 GM/DL (6.4-8.2)
--- NOTE | 2016-10-28 13:54 | ED GI ---
General Chief Complaint: Abdominal/GI Problems Stated Complaint: CANNOT SLEEP/ABD PAIN/NERVOUSNESS Nursing Triage Note: PT AMBUALTED TO ROOM. PT STATES SHE IS HAVING LOWER ABD PAIN FOR WEEKS NOW. PT COMPLAINS OF DIARRHEA AND EVERYTHING SHE EATS OR DRINKS GOES RIGHT THROUGH HER. PT STATES SHE IS NERVOUS ABOUT FEELING THIS WAY. Sepsis Screen: No Definite Risk Source of Information: Patient Exam Limitations: No Limitations History of Present Illness Time Seen By Provider: 13:08 Initial Comments This 66-year-old woman presents to the emergency room with complaints of diarrhea for several weeks. She feels dehydrated. She states anything she eats or drinks comes out immediately as diarrhea.. She is rather anxious about all this and has had multiple visits to the ER and Dr. Srivastava. She states recent medications have been tried without success. She has lower abdominal cramping but denies any significant abdominal pain. She denies melena or hematochezia. She states the stools are watery, yellow in color, and very odorous. No stools studies have been done to her knowledge. She is not presently taking any medications. She is afebrile. She is quite anxious about all of this and doesn't know what to do. She has had recent interventions for ureteral stone. She also had a recent admission for accidental overdose related to pain medications she was taking for her ureteral stone. Allergies and Home Medications Allergies Coded Allergies: No Known Drug Allergies (Verified , 11/03/07) Home Medications Atorvastatin Calcium 20 Mg Tablet, 20 MG PO HS, (Reported) Calcium Carbonate/Vitamin D3 1 Tab Tablet, 1 TAB PO DAILY, (Reported) Clonazepam 1 Mg Tablet, 1 MG PO BID PRN for ANXIETY, (Reported) Cyanocobalamin 100 Mcg Tablet, 100 MCG PO DAILY, (Reported) Lorazepam 0.5 Mg Tablet, 0.25 MG PO BID PRN for ANXIETY, #8 Prescribed by: PREETI HERRERA on 10/28/16 1543 Memantine HCl 10 Mg Tablet, 10 MG PO HS, (Reported) Mirtazapine 30 Mg Tablet, 30 MG PO HS, (Reported) Multivitamins 1 Ea Tablet, 1 TAB PO DAILY, (Reported) Review of Systems Constitutional: no symptoms reported EENTM: No Symptoms Reported Respiratory: No Symptoms Reported Cardiovascular: No Symptoms Reported Gastrointestinal: See HPI Genitourinary: No Symptoms Reported Musculoskeletal: no symptoms reported Skin: no symptoms reported Psychiatric/Neurological: See HPI Endocrine: No Symptoms Reported Past Gwxhpmu-Pnvmrh-Zmqnhn Hx Patient Social History Alcohol Use: Denies Use Recreational Drug Use: No Smoking Status: Former Smoker 2nd Hand Smoke Exposure: No Recent Foreign Travel: No Contact w/Someone Who Travel: No Recent Infectious Disease Expo: No Recent Hopitalizations: No Immunizations Up To Date Date of Pneumonia Vaccine: Oct 11, 2013 Date of Influenza Vaccine: Jan 13, 2016 Seasonal Allergies Seasonal Allergies: No Surgeries HX Surgeries: Yes Surgeries: Abdominal (hiatal hernia), Bladder Surgery, Breast, Gallbladder, Renal Respiratory Hx Respiratory Disorders: No Cardiovascular Hx Cardiac Disorders: No Neurological Hx Neurological Disorders: No Reproductive System Hx Reproductive Disorders: No Sexually Transmitted Disease: No HIV/AIDS: No 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 Disorders: Denies Genitourinary Hx Genitourinary Disorders: Yes (CHRONIC URETHRAL PAIN ) Genitourinary Disorders: Bladder Infection, Kidney Stones Gastrointestinal Hx Gastrointestinal Disorders: Yes (CHRONIC ABDOMINAL PAIN) Gastrointestinal Disorders: Chronic Constipation, Chronic Diarrhea, Irritable Bowel Musculoskeletal Hx Musculoskeletal Disorders: No Endocrine Hx Endocrine Disorders: No HEENT HX ENT Disorders: Yes HEENT Disorders: Cataract Loss of Vision: Denies Hearing Impairment: Denies Cancer Hx Cancer: No Psychosocial Hx Psychiatric Problems: Yes Behavioral Health Disorders: Anxiety Integumentary HX Skin/Integumentary Disorder: No Blood Transfusions Hx Blood Disorders: No Adverse Reaction to a Blood Tr: No Family Medical History Significant Family History: No Pertinent Family Hx Family Medial History: Cancer 19 MOTHER, Onset:Unknown Cancer of colon 19 FATHER Physical Exam Vital Signs VS - Last 72 Hours, by Label 10/28/16 10/28/16 13:13 15:50 Temp 98.2 98.2 Pulse 77 85 Resp 20 20 B/P (MAP) 124/83 Pulse Ox 100 100 O2 Delivery Room Air Room Air Capillary Refill : Less Than 3 Seconds General Appearance: WD/WN, mild distress HEENT: PERRL/EOMI, normal ENT inspection, other (oropharynx somewhat dry) Neck: normal inspection Respiratory: lungs clear, normal breath sounds, no respiratory distress, no accessory muscle use Cardiovascular: regular rate, rhythm, no edema, no murmur Gastrointestinal: normal bowel sounds, non tender, soft Extremities: normal inspection, no pedal edema Neurologic/Psychiatric: scallop dredger II-XII nml as tested, no motor/sensory deficits, alert, oriented x 3, other (rather anxious) Skin: normal color, warm/dry Progress/Results/Core Measures Results/Orders Lab Results Laboratory Tests Test 10/28/16 13:11 10/28/16 13:22 10/28/16 14:55 Range/Units TSH [place] Testing 1.58 0.35-4.94 UIU/ML White Blood Count 8.6 4.3-11.0 10^3/uL Red Blood Count 4.87 4.35-5.85 10^6/uL Hemoglobin 14.2 11.5-16.0 G/DL Hematocrit 42 35-52 % Mean Corpuscular Volume 87 80-99 FL Mean Corpuscular Hemoglobin 29 25-34 PG Mean Corpuscular Hemoglobin Concent 34 32-36 G/DL Red Cell Distribution Width 13.0 10.0-14.5 % Platelet Count 300 130-400 10^3/uL Mean Platelet Volume 11.9 H 7.4-10.4 FL Neutrophils (%) (Auto) 72 42-75 % Lymphocytes (%) (Auto) 21 12-44 % Monocytes (%) (Auto) 7 0-12 % Eosinophils (%) (Auto) 0 0-10 % Basophils (%) (Auto) 0 0-10 % Neutrophils # (Auto) 6.2 1.8-7.8 X 10^3 Lymphocytes # (Auto) 1.8 1.0-4.0 X 10^3 Monocytes # (Auto) 0.6 0.0-1.0 X 10^3 Eosinophils # (Auto) 0.0 0.0-0.3 10^3/uL Basophils # (Auto) 0.0 0.0-0.1 10^3/uL Sodium Level 137 135-145 MMOL/L Potassium Level 3.4 L 3.6-5.0 MMOL/L Chloride Level 102 98-107 MMOL/L Carbon Dioxide Level 21 21-32 MMOL/L Anion Gap 14 5-14 MMOL/L Blood Urea Nitrogen 14 7-18 MG/DL Creatinine 0.76 0.60-1.30 MG/DL Estimat Glomerular Filtration Rate > 60 BUN/Creatinine Ratio 18 Glucose Level 101 70-105 MG/DL Calcium Level 10.0 8.5-10.1 MG/DL Magnesium Level 1.9 1.8-2.4 MG/DL Total Bilirubin 0.6 0.1-1.0 MG/DL Aspartate Amino Transf (AST/SGOT) 19 5-34 U/L Alanine Aminotransferase (ALT/SGPT) 26 0-55 U/L Alkaline Phosphatase 78 40-136 U/L Total Protein 7.5 6.4-8.2 GM/DL Albumin 4.6 H 3.2-4.5 GM/DL Urine Color YELLOW Urine Clarity CLEAR Urine pH 7 5-9 Urine Specific [place] 1.005 L 1.016-1.022 Urine Protein NEGATIVE NEGATIVE Urine Glucose (UA) NEGATIVE NEGATIVE Urine Ketones 2+ H NEGATIVE Urine Nitrite NEGATIVE NEGATIVE Urine Bilirubin NEGATIVE NEGATIVE Urine Urobilinogen NORMAL NORMAL MG/DL Urine Leukocyte Esterase NEGATIVE NEGATIVE Urine RBC (Auto) 1+ H NEGATIVE Urine RBC 0-2 /HPF Urine WBC RARE /HPF Urine Squamous Epithelial Cells RARE /HPF Urine Crystals NONE /LPF Urine Bacteria NONE /HPF Urine Casts NONE /LPF Urine Mucus NEGATIVE /LPF Urine Culture Indicated NO My Orders Orders - PREETI ECHAVARRIA MD Ua Culture If Indicated (10/28/16 13:06) Cbc With Automated Diff (10/28/16 13:11) Comprehensive Metabolic Panel (10/28/16 13:11) Magnesium (10/28/16 13:11) Saline Lock/Iv-Start (10/28/16 13:11) Thyroid Analyzer (10/28/16 13:35) Lorazepam Injection (Ativan Injection) (10/28/16 13:45) Ns Iv 1000 Ml (Sodium Chloride 0.9%) (10/28/16 13:39) Iv Push Airplane Mechanic Apprentice Ed (10/28/16 ) Medications Given in ED Vital Signs/I&O Vital Sign - Last 12Hours 10/28/16 10/28/16 13:13 15:50 Temp 98.2 98.2 Pulse 77 85 Resp 20 20 B/P (MAP) 124/83 Pulse Ox 100 100 O2 Delivery Room Air Room Air Blood Pressure Mean: 97 Progress Note : Progress Note Patient received a liter of IV normal saline. She also received Ativan 0.25 mg IV for her anxiety. She was feeling much improved after these interventions. Workup was relatively unremarkable. Stool studies were ordered but she was unable to produce a stool specimen while in the ER. She was encouraged to provide a stool sample on an outpatient basis as she has had diarrhea for a prolonged period of time. In reviewing her chart and medications, it was noted that she was recently started on Aricept and Namenda. Both of these medications can cause diarrhea. I suggested that she stop these medications to determine if they are the cause of her diarrhea. If diarrhea does not resolve stopping these medications, stool studies could be performed. She was otherwise stable for dismissal home. She was given a short-term prescription for Ativan to take until she has an opportunity to follow up with Dr. Srivastava. Departure Impression Impression: Primary Impression: Diarrhea Qualified Codes: R19.7 - Diarrhea, unspecified Additional Impression: Anxiety Disposition: HOME, SELF-CARE Condition: Improved Departure-Patient Inst. Decision time for Depature: 15:35 Referrals: RICARDO SRIVASTAVA DO (PCP/Family) Primary Care Physician Patient Instructions: Anxiety, Adult (DC), Diarrhea in Adolescents and Adults Add. Discharge Instructions: Drink plenty of clear liquids. If diarrhea severe, you may try Imodium. Use Imodium sparingly to avoid accidentally causing constipation. I would suggest stopping Namenda (memantine) and Aricept (donepezil) as both of these medications can cause diarrhea. Follow-up with Dr. Srivastava as soon as possible. You may use Ativan one half tablet as prescribed for significant episodes of anxiety. Return to the ER if symptoms worsen. All discharge instructions reviewed with patient and/or family. Voiced understanding. Scripts Lorazepam (Ativan) 0.5 Mg Tablet 0.25 MG PO BID Y for ANXIETY, #8 TAB Prov: PREETI ECHAVARRIA MD 10/28/16 Copy Copies To 1: RICARDO SRIVASTAVA JOSHUA T MD Oct 28, 2016 13:54
[2016-10-28 15:05] LABS: BILIRUBIN,URINE NEGATIVE (NEGATIVE); KETONES,URINE 2+ (NEGATIVE); LEUKOCYTE ESTERASE ,URINE NEGATIVE (NEGATIVE); NITRITE,URINE NEGATIVE (NEGATIVE); PH,URINE 7 (5-9); PROTEIN,URINE NEGATIVE (NEGATIVE); UROBILINOGEN,URINE NORMAL (NORMAL)
[2016-10-28 15:16] LABS: SQUAMOUS EPITHELIAL CELL,UR RARE /HPF; WBC,URINE RARE /HPF
[2016-10-28] MEDS ORDERED: LORA-404 PO (15:43)
[2016-10-28 15:50] VITALS: BP 122/90
== END 2016-10-28 15:50 | disposition home or self-care (01) ==
LOC: EDUNIT# 12:56 → ER 12:58
DX: R19.7 Diarrhea, unspecified (principal); F41.9 Anxiety disorder, unspecified; Z87.891 Personal history of nicotine dependence; Z87.442 Personal history of urinary calculi; Z87.19 Personal history of other diseases of the digestive system
CPT/HCPCS: 36415; 80053; 81000; 83735; 84443; 85025; 96361; 96374

== ENCOUNTER 2016-11-07 11:54 | Emergency (ER) | payer MEDICARE, OTHER ==
[~2016-11-07] VITALS: Ht 167.6 cm; Wt 63.5 kg
[~2016-11-07 11:54] MED LIST changes: +LORA-404 PO
[2016-11-07] MEDS ORDERED: NS IV 1000 ML 1,000 ML IV ONE (12:16)
[2016-11-07 13:10] LABS: BASOPHILS % (AUTO) 0 % (0-10); EOSINOPHILS # (AUTO) 0.1 10^3/uL (0.0-0.3); EOSINOPHILS % (AUTO) 1 % (0-10); LYMPHOCYTES # (AUTO) 1.4 X 10^3 (1.0-4.0); LYMPHOCYTES % (AUTO) 18 % (12-44); MEAN CORPUSCULAR HEMOGLOBIN 29 PG (25-34); MEAN CORPUSCULAR HGB CONC 34 G/DL (32-36); MEAN CORPUSCULAR VOLUME 87 FL (80-99); MONOCYTES # (AUTO) 0.6 X 10^3 (0.0-1.0); MONOCYTES % (AUTO) 8 % (0-12); NEUTROPHILS # (AUTO) 5.8 X 10^3 (1.8-7.8); NEUTROPHILS % (AUTO) 74 % (42-75); PLATELET COUNT 243 10^3/uL (130-400); RED BLOOD COUNT 4.91 10^6/uL (4.35-5.85); RED CELL DISTRIBUTION WIDTH 13.3 % (10.0-14.5); WHITE BLOOD COUNT 7.8 10^3/uL (4.3-11.0)
[2016-11-07 13:28] LABS: ALANINE AMINOTRANSFERASE 25 U/L (0-55); ALBUMIN 4.3 GM/DL (3.2-4.5); ANION GAP 17 MMOL/L (5-14); ASPARTATE AMINO TRANSFERASE 20 U/L (5-34); BILIRUBIN,TOTAL 0.8 MG/DL (0.1-1.0); BLOOD UREA NITROGEN 19 MG/DL (7-18); BUN/CREATININE RATIO 26; CALCIUM 9.8 MG/DL (8.5-10.1); CARBON DIOXIDE 19 MMOL/L (21-32); CHLORIDE 104 MMOL/L (98-107); CREATININE SERUM 0.73 MG/DL (0.60-1.30); GFR ESTIMATED > 60; GLUCOSE 100 MG/DL (70-105); MAGNESIUM 1.8 MG/DL (1.8-2.4); POTASSIUM 3.1 MMOL/L (3.6-5.0); SODIUM 140 MMOL/L (135-145)
--- NOTE | 2016-11-07 13:28 | Diagnostic Imaging Report ---
INDICATION: Diarrhea and tremor. Supine images of the abdomen reveal mild/ moderate stool throughout the colon. There is no evidence of transition point to indicate site of obstruction. No free intraperitoneal gas or pneumatosis is identified. There is no evidence of pathologic abdominal calcification. IMPRESSION: No acute abnormalities identified. Dictated by: Dictated on workstation # [id number]
--- NOTE | 2016-11-07 13:33 | ED General ---
General Chief Complaint: General Problems/Pain Stated Complaint: MARISSA BLACKMAN GO TO RESTROOM, MARISSA SLEEP Nursing Triage Note: AMBULATED TO ROOM 06 WITHOUT DIFFICULTY. STATES SHE HAD AN APPT WITH [facility] TODAY AT 1300 BUT CALLED HIS OFFICE BECAUSE SHE WAS NOT FEELING WELL AND WAS TOLD TO COME TO THE ER FOR ADMISSION. PT COMPLAINS OF N/V/D FOR 2 WEEKS ET UNABLE TO KEEP ANYTHING DOWN. STATES SHE IS UNABLE TO VOID OR HAVE A BM BUT STATES SHE DID VOID AFTER TAKING SOME ICE CHIPS THIS AM AND HAD DIARRHEA YESTERDAY. Nursing Sepsis Screen: No Definite Risk Source of Information: Patient Exam Limitations: No Limitations History of Present Illness Time Seen by Provider: 12:05 Initial Comments This 66-year-old woman presents to the emergency room as referred by Dr. Srivastava's office due to complaints of persistent diarrhea, anxiousness, difficulty producing urine, and feeling "dried up". Patient was seen in this ER by this provider 10 days ago for similar symptoms. Symptoms completely resolved with a liter of IV fluids and a dose of Ativan. Patient has known anxiety issues but states she is trying to get off of her medications. At her prior visit, it was noted that she recently started Namenda and Aricept. I suggested that these medications may be responsible for her diarrhea. She has since stopped these medications as well. I had also suggested that she obtain a stool study if diarrhea continued after stopping these medications. She has not done so because she states an eversion to handling stool. She does not want to deal with anything related to the toilet. Patient again seems very anxious and admits that she has not been taking her prescribed Ativan. She reports anything that she eats or drinks goes "straight through me" as diarrhea. She has loss of appetite. See notes from prior visit for further details. Allergies and Home Medications Allergies Coded Allergies: No Known Drug Allergies (Verified , 11/03/07) Home Medications Atorvastatin Calcium 20 Mg Tablet, 20 MG PO HS, (Reported) Calcium Carbonate/Vitamin D3 1 Tab Tablet, 1 TAB PO DAILY, (Reported) Clonazepam 1 Mg Tablet, 1 MG PO BID PRN for ANXIETY, (Reported) Cyanocobalamin 100 Mcg Tablet, 100 MCG PO DAILY, (Reported) Lorazepam 0.5 Mg Tablet, 0.25 MG PO BID PRN for ANXIETY, #8 Prescribed by: PREETI HERRERA on 10/28/16 1543 Memantine HCl 10 Mg Tablet, 10 MG PO HS, (Reported) Mirtazapine 30 Mg Tablet, 30 MG PO HS, (Reported) Multivitamins 1 Ea Tablet, 1 TAB PO DAILY, (Reported) Constitutional: no symptoms reported EENTM: no symptoms reported Respiratory: no symptoms reported Cardiovascular: no symptoms reported Gastrointestinal: see HPI Genitourinary: see HPI Musculoskeletal: no symptoms reported Skin: no symptoms reported Psychiatric/Neurological: See HPI Hematologic/Lymphatic: No Symptoms Reported Past Dzfegob-Wzaubh-Rftrhy Hx Patient Social History Alcohol Use: Past History Recreational Drug Use: No Smoking Status: Never a Smoker 2nd Hand Smoke Exposure: No Recent Foreign Travel: No Contact w/Someone Who Travel: No Recent Infectious Disease Expo: No Recent Hopitalizations: Yes Immunizations Up To Date Date of Pneumonia Vaccine: Oct 11, 2013 Date of Influenza Vaccine: Jan 13, 2016 Seasonal Allergies Seasonal Allergies: No Surgeries HX Surgeries: Yes Surgeries: Abdominal, Bladder Surgery, Breast, Gallbladder, Renal Respiratory Hx Respiratory Disorders: No Cardiovascular Hx Cardiac Disorders: No Neurological Hx Neurological Disorders: No Reproductive System Hx Reproductive Disorders: No Sexually Transmitted Disease: No HIV/AIDS: No 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 Disorders: Denies Genitourinary Hx Genitourinary Disorders: Yes (CHRONIC URETHRAL PAIN ) Genitourinary Disorders: Bladder Infection, Kidney Stones Gastrointestinal Hx Gastrointestinal Disorders: Yes (CHRONIC ABDOMINAL PAIN) Gastrointestinal Disorders: Chronic Constipation, Chronic Diarrhea, Irritable Bowel Musculoskeletal Hx Musculoskeletal Disorders: No Endocrine Hx Endocrine Disorders: No HEENT HX ENT Disorders: Yes HEENT Disorders: Cataract Loss of Vision: Denies Hearing Impairment: Denies Cancer Hx Cancer: No Psychosocial Hx Psychiatric Problems: Yes Behavioral Health Disorders: Anxiety Integumentary HX Skin/Integumentary Disorder: No Blood Transfusions Hx Blood Disorders: No Adverse Reaction to a Blood Tr: No Family Medical History Significant Family History: No Pertinent Family Hx Family Medial History: Cancer 19 MOTHER, Onset:Unknown Cancer of colon 19 FATHER Physical Exam Vital Signs Vital Sign - Last 12Hours 11/07/16 12:05 Temp 98.0 Pulse 92 Resp 16 B/P (MAP) 127/78 Pulse Ox 96 Capillary Refill : Less Than 3 Seconds General Appearance: WD/WN, Anxious HEENT: PERRL/EOMI, Normal ENT Inspection, Other (oropharynx somewhat dry) Neck: Normal Inspection Respiratory: Lungs Clear, Normal Breath Sounds, No Accessory Muscle Use, No Respiratory Distress Cardiovascular: Regular Rate, Rhythm, No Edema, No Murmur Gastrointestinal: Normal Bowel Sounds, Non Tender, Soft Extremity: Normal Inspection, No Pedal Edema Neurologic/Psychiatric: Alert, Oriented x3, No Motor/Sensory Deficits, Normal Mood/Affect, 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 Norm as Tested Skin: Normal Color, Warm/Dry Progress/Results/Core Measures Results/Orders Lab Results Laboratory Tests Test 11/07/16 12:30 11/07/16 13:35 Range/Units White Blood Count 7.8 4.3-11.0 10^3/uL Red Blood Count 4.91 4.35-5.85 10^6/uL Hemoglobin 14.4 11.5-16.0 G/DL Hematocrit 43 35-52 % Mean Corpuscular Volume 87 80-99 FL Mean Corpuscular Hemoglobin 29 25-34 PG Mean Corpuscular Hemoglobin Concent 34 32-36 G/DL Red Cell Distribution Width 13.3 10.0-14.5 % Platelet Count 243 130-400 10^3/uL Mean Platelet Volume 12.0 H 7.4-10.4 FL Neutrophils (%) (Auto) 74 42-75 % Lymphocytes (%) (Auto) 18 12-44 % Monocytes (%) (Auto) 8 0-12 % Eosinophils (%) (Auto) 1 0-10 % Basophils (%) (Auto) 0 0-10 % Neutrophils # (Auto) 5.8 1.8-7.8 X 10^3 Lymphocytes # (Auto) 1.4 1.0-4.0 X 10^3 Monocytes # (Auto) 0.6 0.0-1.0 X 10^3 Eosinophils # (Auto) 0.1 0.0-0.3 10^3/uL Basophils # (Auto) 0.0 0.0-0.1 10^3/uL Sodium Level 140 135-145 MMOL/L Potassium Level 3.1 L 3.6-5.0 MMOL/L Chloride Level 104 98-107 MMOL/L Carbon Dioxide Level 19 L 21-32 MMOL/L Anion Gap 17 H 5-14 MMOL/L Blood Urea Nitrogen 19 H 7-18 MG/DL Creatinine 0.73 0.60-1.30 MG/DL Estimat Glomerular Filtration Rate > 60 BUN/Creatinine Ratio 26 Glucose Level 100 70-105 MG/DL Calcium Level 9.8 8.5-10.1 MG/DL Magnesium Level 1.8 1.8-2.4 MG/DL Total Bilirubin 0.8 0.1-1.0 MG/DL Aspartate Amino Transf (AST/SGOT) 20 5-34 U/L Alanine Aminotransferase (ALT/SGPT) 25 0-55 U/L Alkaline Phosphatase 63 40-136 U/L Total Protein 7.0 6.4-8.2 GM/DL Albumin 4.3 3.2-4.5 GM/DL Urine Color YELLOW Urine Clarity CLEAR Urine pH 6 5-9 Urine Specific Mason 1.030 H 1.016-1.022 Urine Protein 2+ H NEGATIVE Urine Glucose (UA) NEGATIVE NEGATIVE Urine Ketones 4+ H NEGATIVE Urine Nitrite NEGATIVE NEGATIVE Urine Bilirubin NEGATIVE NEGATIVE Urine Urobilinogen 1 NORMAL MG/DL Urine Leukocyte Esterase 3+ H NEGATIVE Urine RBC (Auto) 4+ H NEGATIVE Urine RBC 5-10 H /HPF Urine WBC 25-50 H /HPF Urine Squamous Epithelial Cells 25-50 H /HPF Urine Crystals NONE /LPF Urine Bacteria MODERATE H /HPF Urine Casts NONE /LPF Urine Mucus LARGE H /LPF Urine Culture Indicated YES My Orders Orders - PREETI ECHAVARRIA MD Cbc With Automated Diff (11/07/16 12:16) Comprehensive Metabolic Panel (11/07/16 12:16) Magnesium (11/07/16 12:16) Ua Culture If Indicated (11/07/16 12:16) Abdomen/Kub 1view (11/07/16 12:16) Saline Lock/Iv-Start (11/07/16 12:16) Ns Iv 1000 Ml (Sodium Chloride 0.9%) (11/07/16 12:16) Potassium Chloride (Tablet) (Klor Con Ta (11/07/16 13:45) Urine Culture (11/07/16 13:35) Ceftriaxone Injection (Rocephin Injectio (11/07/16 14:15) Medications Given in ED Current Medications Medications Dose Ordered Sig/Yoni Route Start Time Stop Time Status Last Admin Dose Admin Ceftriaxone Sodium 1000 mg/ Sodium Chloride 50 ml @ 100 mls/hr ONCE ONCE IV 11/07/16 14:15 11/07/16 14:44 DC 11/07/16 14:43 100 MLS/HR Potassium Chloride 40 meq ONCE ONCE PO 11/07/16 13:45 11/07/16 13:46 DC 11/07/16 14:41 40 MEQ Sodium Chloride 1,000 ml @ 0 mls/hr Q0M ONCE IV 11/07/16 12:16 11/07/16 12:18 DC 11/07/16 12:29 1,000 MLS/HR Vital Signs/I&O Vital Sign - Last 12Hours 11/07/16 12:05 Temp 98.0 Pulse 92 Resp 16 B/P (MAP) 127/78 Pulse Ox 96 Blood Pressure Mean: 94 Progress Note : Time: 13:40 Progress Note Labs have been reviewed. Patient was found to be hypokalemic and oral potassium replacement has been ordered. She has received a liter of IV fluids and was finally able to produce a urine specimen. Disposition will be pending UA results. Diagnostic Imaging Diagonstic Imaging: Xray Plain Films/CT/US/NM/MRI: abdomen, pelvis Comments KUB viewed by me and report reviewed. See report below: NAME: TOPHER LOPEZ MED REC#: [id number] PT STATUS: REG ER : [id number] PHYSICIAN: PREETI ECHAVARRIA MD ADMIT DATE: 11/07/16/ER Draft Date of Exam:11/07/16 ABDOMEN/KUB 1VIEW INDICATION: Diarrhea and tremor. Supine images of the abdomen reveal mild/ moderate stool throughout the colon. There is no evidence of transition point to indicate site of obstruction. No free intraperitoneal gas or pneumatosis is identified. There is no evidence of pathologic abdominal calcification. IMPRESSION: No acute abnormalities identified. Dictated on workstation # [id number] Dict: 11/07/16 1322 Trans: 11/07/16 1327 SHARI [id number] Interpreted by: VIOLET ARROYO MD Departure Impression Impression: Primary Impression: Diarrhea Qualified Codes: R19.7 - Diarrhea, unspecified Additional Impressions: Hypovolemia Anxiety Urinary tract infection Qualified Codes: N39.0 - Urinary tract infection, site not specified Hypokalemia Disposition: 01 HOME, SELF-CARE Condition: Improved Departure-Patient Inst. Decision time for Depature: 15:06 Referrals: RICARDO SRIVASTAVA DO (PCP/Family) Primary Care Physician Patient Instructions: Urinary Tract Infection, Adult (DC) Add. Discharge Instructions: Since your diarrhea did not improve with stopping Aricept and Namenda, Dr. Srivastava would like you to restart these medications. Obtain a stool specimen and return to the hospital lab along with your lab order. Drink plenty of clear liquids. Use your antibiotic as prescribed. Please note that this antibiotic can make your urine oranges sure reddish in color. You may use Ativan as prescribed for anxiety. Return to the ER if you have worsening symptoms. Dr. Srivastava would like to see you in his office at 10:30 tomorrow. All discharge instructions reviewed with patient and/or family. Voiced understanding. Scripts Nitrofurantoin Monohyd/M-Cryst (Macrobid 100 mg Capsule) 100 Mg Capsule 1 TAB PO BID, #14 CAP Prov: PREETI ECHAVARRIA MD 11/07/16 PREETI ECHAVARRIA MD Nov 07, 2016 13:33
[2016-11-07 13:42] LABS: BILIRUBIN,URINE NEGATIVE (NEGATIVE); KETONES,URINE 4+ (NEGATIVE); LEUKOCYTE ESTERASE ,URINE 3+ (NEGATIVE); NITRITE,URINE NEGATIVE (NEGATIVE); PH,URINE 6 (5-9); PROTEIN,URINE 2+ (NEGATIVE); UROBILINOGEN,URINE 1 MG/DL (NORMAL)
[2016-11-07] MEDS ORDERED: KCL 10 MEQ TAB (MICRO K) PO ONE (13:45)
[2016-11-07 13:54] LABS: SQUAMOUS EPITHELIAL CELL,UR 25-50 /HPF; WBC,URINE 25-50 /HPF
[2016-11-07] MEDS ORDERED: cefTRIAXone INJECTION 1,000 MG in NS (IVPB) 50 ML IV ONE (14:15)
[2016-11-07] MEDS ORDERED: NITR-65 PO (15:08)
[2016-11-07 15:39] VITALS: BP 105/57
== END 2016-11-07 15:39 | disposition home or self-care (01) ==
LOC: EDUNIT# 11:54 → ER 11:56
DX: E86.1 Hypovolemia (principal); E87.6 Hypokalemia; F41.9 Anxiety disorder, unspecified; N39.0 Urinary tract infection, site not specified; R11.2 Nausea with vomiting, unspecified; R19.7 Diarrhea, unspecified; Z91.14 Patient's other noncompliance with medication regimen
CPT/HCPCS: 36415; 74000; 80053; 81000; 83735; 85025; 87088; 96361; 96365

== ENCOUNTER 2016-12-02 13:45 | Emergency (ER) | payer MEDICARE, OTHER ==
[~2016-12-02] VITALS: Ht 167.6 cm; Wt 57.2 kg
[2016-12-02] MEDS ORDERED: LACTATED RINGERS 1,000 ML IV ONE ×2 (14:10→15:10)
[2016-12-02 14:20] LABS: KETONES,URINE 4+ (NEGATIVE); LEUKOCYTE ESTERASE ,URINE 3+ (NEGATIVE); NITRITE,URINE NEGATIVE (NEGATIVE); PH,URINE 6 (5-9); PROTEIN,URINE 3+ (NEGATIVE); UROBILINOGEN,URINE 1 MG/DL (NORMAL)
--- NOTE | 2016-12-02 14:23 | ED GI ---
General Chief Complaint: Abdominal/GI Problems Stated Complaint: STOMACH ISSUES Nursing Triage Note: PT REPORTS SHE HAS HAD DIARRHEA FOR SEVERAL MONTHS. SHE STATES THAT DR SRIVASTAVA INSTRUCTED HER TO COME TO THE ED PRIOR TO SEEING HIM R/T PT BEING DEHYDRATED. PT DENIES N/V, OR FEVER. Sepsis Screen: No Definite Risk Source of Information: Patient Exam Limitations: No Limitations History of Present Illness Time Seen By Provider: 13:56 Initial Comments Kamla is a 66-year-old woman well known to me from prior visits. She has chronic problems with abdominal discomfort and diarrhea. Pain is in the lower pelvic region. She is also rather anxious but no longer takes benzodiazepines. She also reportedly has been early dementia and was previously on Namenda and Aricept. She no longer takes these medications. She is accompanied by her today who states he stopped in Dr. Srivastava's office to discuss her case. He reports they were deferred to the emergency room because of suspicion that Kamla was dehydrated. Patient says she feels dehydrated due to chronic diarrhea and is consequently feeling dizzy. Although she reports chronic diarrhea and having diarrhea anytime she consumes food or fluids, she also reports only having about one stool of any kind per day on average. This history is somewhat contradictory. Patient reports a 20+ pound weight loss since August. She saw Dr. Rain for these complaints and tried to medications he prescribed. She reports they were not helpful and she does not want to return for repeat evaluation. Based on my prior experiences with Kamla, I believe her to have significant problems with anxiety. I have witnessed her symptoms resolve with Ativan treatment in the past. Patient reports she is not interested in treating her anxiety because those medications make her feel worse. She is presently on Zoloft. She was supposed to taper her dose up but did not because the higher dose also made her feel worse. Patient has had diagnoses of urinary tract infection, renal stone, and hypokalemia in her past workups over the past several visits. See a review of her prior visits for further details. Allergies and Home Medications Allergies Coded Allergies: No Known Drug Allergies (Verified , 11/03/07) Home Medications Amoxicillin 500 Mg Capsule, 500 MG PO TID, #20 Prescribed by: PREETI HERRERA on 12/02/16 1532 Atorvastatin Calcium 20 Mg Tablet, 20 MG PO HS, (Reported) Calcium Carbonate/Vitamin D3 1 Tab Tablet, 1 TAB PO DAILY, (Reported) Clonazepam 1 Mg Tablet, 1 MG PO BID PRN for ANXIETY, (Reported) Cyanocobalamin 100 Mcg Tablet, 100 MCG PO DAILY, (Reported) Lorazepam 0.5 Mg Tablet, 0.25 MG PO BID PRN for ANXIETY, #8 Prescribed by: PREETI HERRERA on 10/28/16 1543 Magnesium Oxide 400 Mg Tablet, 400 MG PO DAILY, #10 Prescribed by: PREETI HERRERA on 12/02/16 1532 Memantine HCl 10 Mg Tablet, 10 MG PO HS, (Reported) Metronidazole 500 Mg Tablet, 500 MG PO TID, #20 Prescribed by: PREETI HRERERA on 12/02/16 1532 Mirtazapine 30 Mg Tablet, 30 MG PO HS, (Reported) Multivitamins 1 Ea Tablet, 1 TAB PO DAILY, (Reported) Nitrofurantoin Monohyd/M-Cryst 100 Mg Capsule, 1 TAB PO BID, #14 Prescribed by: PREETI HERRERA on 11/07/16 1508 Potassium Chloride 10 Meq Tablet.er, 10 MEQ PO DAILY, #10 Prescribed by: PREETI HERRERA on 12/02/16 1532 Review of Systems Constitutional: no symptoms reported EENTM: No Symptoms Reported Respiratory: No Symptoms Reported Cardiovascular: No Symptoms Reported Gastrointestinal: See HPI Genitourinary: See HPI Musculoskeletal: no symptoms reported Skin: no symptoms reported Psychiatric/Neurological: See HPI Endocrine: No Symptoms Reported Past Yeklwrn-Puwwkb-Mdrevi Hx Patient Social History Alcohol Use: Occasionally Uses Number of Drinks Today: Alcohol Beverage of Choice: Beer, Wine Recreational Drug Use: No Smoking Status: Never a Smoker 2nd Hand Smoke Exposure: No Recent Foreign Travel: No Contact w/Someone Who Travel: No Recent Infectious Disease Expo: No Recent Hopitalizations: No Physical Abuse: No Sexual Abuse: No Immunizations Up To Date Date of Pneumonia Vaccine: Oct 11, 2013 Date of Influenza Vaccine: Jan 13, 2016 Seasonal Allergies Seasonal Allergies: No Surgeries History of Surgeries: Yes (HIATAL HERNIA, EGD, COLONOSCOPY, BREAT BIOPSY X2) Surgeries: Abdominal, Bladder Surgery, Breast, Gallbladder, Renal Respiratory History of Respiratory Disorde: No Cardiovascular History of Cardiac Disorders: No Neurological History of Neurological Disord: Yes Neurological Disorders: Dementia Reproductive System Hx Reproductive Disorders: No Sexually Transmitted Disease: No HIV/AIDS: No 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 Disorders: Denies Genitourinary History of Genitourinary Disor: Yes Genitourinary Disorders: Bladder Infection, Kidney Stones Gastrointestinal History of Gastrointestinal Di: Yes Gastrointestinal Disorders: Chronic Constipation, Chronic Diarrhea, Irritable Bowel Musculoskeletal History of Musculoskeletal Dis: No Endocrine History of Endocrine Disorders: No HEENT HEENT Disorders: Cataract Loss of Vision: Denies Hearing Impairment: Denies Cancer History of Cancer: No Psychosocial History of Psychiatric Problem: Yes Behavioral Health Disorders: Anxiety Suicide Risk Score: 0 Integumentary History of Skin or Integumenta: No Blood Transfusions History of Blood Disorders: No Adverse Reaction to a Blood Tr: No Family Medical History Significant Family History: No Pertinent Family Hx Family Medial History: Cancer 19 MOTHER, Onset:Unknown Cancer of colon 19 FATHER Physical Exam Vital Signs VS - Last 72 Hours, by Label 12/02/16 14:00 Temp 98.1 Pulse 91 Resp 16 B/P (MAP) 91/69 Pulse Ox 98 O2 Delivery Room Air Capillary Refill : Less Than 3 Seconds General Appearance: WD/WN, mild distress (rather anxious) HEENT: PERRL/EOMI, normal ENT inspection, pharynx normal Neck: normal inspection Respiratory: lungs clear, normal breath sounds, no respiratory distress, no accessory muscle use Cardiovascular: regular rate, rhythm, no edema, no murmur Gastrointestinal: normal bowel sounds, soft, tenderness (mild in the lower pelvic region) Extremities: normal inspection, no pedal edema Neurologic/Psychiatric: ict analyst II-XII nml as tested, no motor/sensory deficits, alert, oriented x 3, other (anxious) Skin: normal color, warm/dry Progress/Results/Core Measures Results/Orders Lab Results Laboratory Tests Test 12/02/16 14:10 12/02/16 14:36 Range/Units Urine Color YELLOW Urine Clarity SLIGHTLY CLOUDY Urine pH 6 5-9 Urine Specific Byers 1.025 H 1.016-1.022 Urine Protein 3+ H NEGATIVE Urine Glucose (UA) NEGATIVE NEGATIVE Urine Ketones 4+ H NEGATIVE Urine Nitrite NEGATIVE NEGATIVE Urine Bilirubin 1+ H NEGATIVE Urine Urobilinogen 1 NORMAL MG/DL Urine Leukocyte Esterase 3+ H NEGATIVE Urine RBC (Auto) 2+ H NEGATIVE Urine RBC 5-10 H /HPF Urine WBC 25-50 H /HPF Urine Squamous Epithelial Cells 10-25 H /HPF Urine Crystals NONE /LPF Urine Bacteria MODERATE H /HPF Urine Casts PRESENT /LPF Urine Hyaline Casts 5-10 H /LPF Urine Mucus MODERATE H /LPF Urine Culture Indicated YES White Blood Count 7.8 4.3-11.0 10^3/uL Red Blood Count 5.05 4.35-5.85 10^6/uL Hemoglobin 14.8 11.5-16.0 G/DL Hematocrit 42 35-52 % Mean Corpuscular Volume 84 80-99 FL Mean Corpuscular Hemoglobin 29 25-34 PG Mean Corpuscular Hemoglobin Concent 35 32-36 G/DL Red Cell Distribution Width 13.4 10.0-14.5 % Platelet Count 264 130-400 10^3/uL Mean Platelet Volume 12.5 H 7.4-10.4 FL Neutrophils (%) (Auto) 73 42-75 % Lymphocytes (%) (Auto) 18 12-44 % Monocytes (%) (Auto) 9 0-12 % Eosinophils (%) (Auto) 0 0-10 % Basophils (%) (Auto) 0 0-10 % Neutrophils # (Auto) 5.7 1.8-7.8 X 10^3 Lymphocytes # (Auto) 1.4 1.0-4.0 X 10^3 Monocytes # (Auto) 0.7 0.0-1.0 X 10^3 Eosinophils # (Auto) 0.0 0.0-0.3 10^3/uL Basophils # (Auto) 0.0 0.0-0.1 10^3/uL Erythrocyte Sedimentation Rate 16 0-30 MM/HR Sodium Level 137 135-145 MMOL/L Potassium Level 3.1 L 3.6-5.0 MMOL/L Chloride Level 101 98-107 MMOL/L Carbon Dioxide Level 18 L 21-32 MMOL/L Anion Gap 18 H 5-14 MMOL/L Blood Urea Nitrogen 18 7-18 MG/DL Creatinine 0.97 0.60-1.30 MG/DL Estimat Glomerular Filtration Rate 57 BUN/Creatinine Ratio 19 Glucose Level 124 H 70-105 MG/DL Calcium Level 10.3 H 8.5-10.1 MG/DL Magnesium Level 1.4 L 1.8-2.4 MG/DL Total Bilirubin 1.0 0.1-1.0 MG/DL Aspartate Amino Transf (AST/SGOT) 56 H 5-34 U/L Alanine Aminotransferase (ALT/SGPT) 78 H 0-55 U/L Alkaline Phosphatase 75 40-136 U/L C-Reactive Protein High Sensitivity 0.25 0.00-0.50 MG/DL Total Protein 7.0 6.4-8.2 GM/DL Albumin 4.3 3.2-4.5 GM/DL My Orders Orders - PREETI ECHAVARRIA MD Cbc With Automated Diff (12/02/16 14:10) Comprehensive Metabolic Panel (12/02/16 14:10) Hs C Reactive Protein (12/02/16 14:10) Magnesium (12/02/16 14:10) Ua Culture If Indicated (12/02/16 14:10) Erythrocyte Sedimentation Rate (12/02/16 14:10) Abdomen, Flat & Upright/Decub (12/02/16 14:10) Saline Lock/Iv-Start (12/02/16 14:10) Lactated Ringers (Lr 1000 Ml Iv Solution (12/02/16 14:10) Urine Culture (12/02/16 14:10) Ceftriaxone Injection (Rocephin Injectio (12/02/16 15:15) Magnesium Oxide Tablet (Mag Ox Tablet) (12/02/16 15:15) Potassium Chloride (Tablet) (Klor Con Ta (12/02/16 15:15) Lactated Ringers (Lr 1000 Ml Iv Solution (12/02/16 15:10) Medications Given in ED Current Medications Medications Dose Ordered Sig/Yoni Route Start Time Stop Time Status Last Admin Dose Admin Ceftriaxone Sodium 1000 mg/ Sodium Chloride 50 ml @ 100 mls/hr ONCE ONCE IV 12/02/16 15:15 12/02/16 15:44 DC 12/02/16 15:27 100 MLS/HR Lactated Ringer's 1,000 ml @ 0 mls/hr Q0M ONCE IV 12/02/16 14:10 12/02/16 14:11 DC 12/02/16 14:42 0 MLS/HR Lactated Ringer's 1,000 ml @ 0 mls/hr Q0M ONCE IV 12/02/16 15:10 12/02/16 15:12 DC 12/02/16 15:27 0 MLS/HR Magnesium Oxide 400 mg ONCE ONCE PO 12/02/16 15:15 12/02/16 15:16 DC 12/02/16 15:26 400 MG Potassium Chloride 40 meq ONCE ONCE PO 12/02/16 15:15 12/02/16 15:16 DC 12/02/16 15:26 40 MEQ Vital Signs/I&O Vital Sign - Last 12Hours 12/02/16 14:00 Temp 98.1 Pulse 91 Resp 16 B/P (MAP) 91/69 Pulse Ox 98 O2 Delivery Room Air Blood Pressure Mean: 76 Progress Note : Progress Note Patient was hydrated with 2 L of lactated Ringer. Magnesium and potassium electrolytes were replaced orally. Urinary tract infection was identified and treated with Rocephin. Urine culture from prior visit was reviewed. Based on that culture, amoxicillin was prescribed. Flagyl was also prescribed as patient has never been able to produce a decent stool sample not contaminated by urine for analysis. Patient has been on antibiotics in the past and may have C. difficile. She's not confident that she can produce a decent stool sample for analysis therefore requests to just be empirically treated with Flagyl. I discussed the patient's anxiety with her and her at length. I suggested that she try taking Ativan before eating to help her relax. This may help reduce her post meal dumping. She has a few Ativan pills left at home and she will try this tactic. A short course of magnesium and potassium supplementation was also prescribed. Diagnostic Imaging Diagonstic Imaging: Xray Plain Films/CT/US/NM/MRI: abdomen, pelvis Comments X-ray of the abdomen and pelvis viewed by me and report reviewed. See report below: NAME: KAMLA LOPEZ [facility] REC#: [id number] PT STATUS: REG ER : 1950 PHYSICIAN: PREETI ECHAVARRIA MD ADMIT DATE: 12/02/16/ER Draft Date of Exam:12/02/16 ABDOMEN, FLAT UPRIGHT/DECUB EXAMINATION: Abdomen at 2:45 PM. INDICATION: Abdominal pain, diarrhea, and dehydration. FINDINGS: Supine and erect views were obtained. There is gas in both the large and small bowel in a nonspecific fashion. The amount of bowel gas is less than noted on the prior exam of 11/07/2016. There is no sign of a bowel obstruction. There is no mass, organomegaly, or pathological calcification evident. The osseous structures are intact. IMPRESSION: The bowel gas pattern is nonspecific. There is no acute abnormality identified. Dictated on workstation # [id number] Dict: 12/02/16 1432 Trans: 12/02/16 1441 [id number] Interpreted by: VANESSA GOLDSMITH MD Departure Impression Impression: Primary Impression: Urinary tract infection Qualified Codes: N39.0 - Urinary tract infection, site not specified Additional Impressions: Chronic diarrhea Hypomagnesemia Hypokalemia Anxiety Hypovolemia Disposition: HOME, SELF-CARE Condition: Improved Departure-Patient Inst. Decision time for Depature: 15:21 Referrals: RICARDO SRIVASTAVA DO (PCP/Family) Primary Care Physician Patient Instructions: Hypokalemia, Urinary Tract Infection, Adult (DC) Add. Discharge Instructions: Take your magnesium and potassium supplements as prescribed. Complete your antibiotics as prescribed. Drink plenty of clear liquids. Follow-up with Dr. Srivastava on or Friday to review urine culture. Try taking your Ativan 15-30 minutes prior to eating supper. Then go to sleep fairly soon after eating her supper. This may help you relax for a meal and keep your food in. Return to the emergency room if symptoms worsen. All discharge instructions reviewed with patient and/or family. Voiced understanding. Scripts Metronidazole (Flagyl) 500 Mg Tablet 500 MG PO TID, #20 TAB Prov: PREETI ECHAVARRIA MD 12/02/16 Amoxicillin (Amoxicillin) 500 Mg Capsule 500 MG PO TID, #20 CAP Prov: PREETI ECHAVARRIA MD 12/02/16 Potassium Chloride (Potassium Chloride) 10 Meq Tablet.er 10 MEQ PO DAILY, #10 TAB Prov: PREETI ECHAVARRIA MD 12/02/16 Magnesium Oxide (Magnesium Oxide) 400 Mg Tablet 400 MG PO DAILY, #10 TAB Prov: PREETI ECHAVARRIA MD 12/02/16 Copy Copies To 1: RICARDO SRIVASTAVA JOSHUA T MD Dec 02, 2016 14:23
--- NOTE | 2016-12-02 14:41 | Diagnostic Imaging Report ---
EXAMINATION: Abdomen at 2:45 PM. INDICATION: Abdominal pain, diarrhea, and dehydration. FINDINGS: Supine and erect views were obtained. There is gas in both the large and small bowel in a nonspecific fashion. The amount of bowel gas is less than noted on the prior exam of 11/07/2016. There is no sign of a bowel obstruction. There is no mass, organomegaly, or pathological calcification evident. The osseous structures are intact. IMPRESSION: The bowel gas pattern is nonspecific. There is no acute abnormality identified. Dictated by: Dictated on workstation # [id number]
[2016-12-02 14:44] LABS: BASOPHILS % (AUTO) 0 % (0-10); EOSINOPHILS % (AUTO) 0 % (0-10); LYMPHOCYTES # (AUTO) 1.4 X 10^3 (1.0-4.0); LYMPHOCYTES % (AUTO) 18 % (12-44); MEAN CORPUSCULAR HEMOGLOBIN 29 PG (25-34); MEAN CORPUSCULAR HGB CONC 35 G/DL (32-36); MEAN CORPUSCULAR VOLUME 84 FL (80-99); MEAN PLATELET VOLUME 12.5 FL (7.4-10.4); MONOCYTES # (AUTO) 0.7 X 10^3 (0.0-1.0); MONOCYTES % (AUTO) 9 % (0-12); NEUTROPHILS # (AUTO) 5.7 X 10^3 (1.8-7.8); NEUTROPHILS % (AUTO) 73 % (42-75); PLATELET COUNT 264 10^3/uL (130-400); RED BLOOD COUNT 5.05 10^6/uL (4.35-5.85); RED CELL DISTRIBUTION WIDTH 13.4 % (10.0-14.5); WHITE BLOOD COUNT 7.8 10^3/uL (4.3-11.0)
[2016-12-02 14:45] LABS: BILIRUBIN,URINE 1+ (NEGATIVE); WBC,URINE 25-50 /HPF
[2016-12-02 15:02] LABS: ALBUMIN 4.3 GM/DL (3.2-4.5); CALCIUM 10.3 MG/DL (8.5-10.1); CREATININE SERUM 0.97 MG/DL (0.60-1.30); MAGNESIUM 1.4 MG/DL (1.8-2.4); POTASSIUM 3.1 MMOL/L (3.6-5.0); hs C REACTIVE PROTEIN 0.25 MG/DL (0.00-0.50)
[2016-12-02] MEDS ORDERED: KCL 10 MEQ TAB (MICRO K) PO ONE (15:15)
[2016-12-02] MEDS ORDERED: cefTRIAXone INJECTION 1,000 MG in NS (IVPB) 50 ML IV ONE (15:15)
[2016-12-02] MEDS ORDERED: MAGNESIUM OXIDE (MAG-OX)400 MG TAB PO ONE (15:15)
[2016-12-02 15:23] LABS: ERYTHROCYTE SEDIMENTATION RATE 16 MM/HR (0-30)
[2016-12-02] MEDS ORDERED: AMOX500C2 PO (15:32)
[2016-12-02] MEDS ORDERED: POTA10TA10 PO (15:32)
[2016-12-02] MEDS ORDERED: METR500T PO (15:32)
[2016-12-02] MEDS ORDERED: MAGN400T6 PO (15:32)
[2016-12-02 16:14] VITALS: BP 108/81
== END 2016-12-02 16:14 | disposition home or self-care (01) ==
LOC: EDUNIT# 13:45 → ER 13:47
DX: N39.0 Urinary tract infection, site not specified (principal); R19.7 Diarrhea, unspecified; E83.42 Hypomagnesemia; E87.6 Hypokalemia; E86.1 Hypovolemia; F41.9 Anxiety disorder, unspecified; F03.90 Unspecified dementia, unspecified severity, without behavioral disturbance, psychotic disturbance, mood disturbance, and anxiety; Z80.0 Family history of malignant neoplasm of digestive organs; Z87.442 Personal history of urinary calculi; Z87.448 Personal history of other diseases of urinary system; Z87.19 Personal history of other diseases of the digestive system
CPT/HCPCS: 36415; 74020; 80053; 81000; 83735; 85025; 85652; 86141; 87077; 87088; 87186; 96361; 96365

== ENCOUNTER → 2016-12-09 | Outpatient (CLI) | payer MEDICARE, OTHER ==
[~2016-12-09] MED LIST changes: +AMOX500C2 PO; +MAGN400T6 PO; +METR500T PO; +POTA10TA10 PO
[2016-12-09 11:17] LABS: BASOPHILS % (AUTO) 0 % (0-10); EOSINOPHILS # (AUTO) 0.1 10^3/uL (0.0-0.3); EOSINOPHILS % (AUTO) 2 % (0-10); LYMPHOCYTES # (AUTO) 1.4 X 10^3 (1.0-4.0); LYMPHOCYTES % (AUTO) 19 % (12-44); MEAN CORPUSCULAR HEMOGLOBIN 29 PG (25-34); MEAN CORPUSCULAR HGB CONC 34 G/DL (32-36); MEAN CORPUSCULAR VOLUME 87 FL (80-99); MEAN PLATELET VOLUME 13.1 FL (7.4-10.4); MONOCYTES # (AUTO) 0.7 X 10^3 (0.0-1.0); MONOCYTES % (AUTO) 10 % (0-12); NEUTROPHILS # (AUTO) 4.9 X 10^3 (1.8-7.8); NEUTROPHILS % (AUTO) 69 % (42-75); PLATELET COUNT 265 10^3/uL (130-400); RED BLOOD COUNT 5.26 10^6/uL (4.35-5.85); RED CELL DISTRIBUTION WIDTH 13.8 % (10.0-14.5); WHITE BLOOD COUNT 7.1 10^3/uL (4.3-11.0)
[2016-12-09 11:55] LABS: ALANINE AMINOTRANSFERASE 56 U/L (0-55); ALBUMIN 4.4 GM/DL (3.2-4.5); ANION GAP 16 MMOL/L (5-14); ASPARTATE AMINO TRANSFERASE 47 U/L (5-34); BILIRUBIN,TOTAL 0.8 MG/DL (0.1-1.0); BLOOD UREA NITROGEN 13 MG/DL (7-18); BUN/CREATININE RATIO 18; CALCIUM 10.5 MG/DL (8.5-10.1); CARBON DIOXIDE 24 MMOL/L (21-32); CHLORIDE 100 MMOL/L (98-107); CHOLESTEROL 198 MG/DL (< 200); CREATININE SERUM 0.73 MG/DL (0.60-1.30); DIRECT LDL 119 MG/DL (1-129); GFR ESTIMATED > 60; GLUCOSE 112 MG/DL (70-105); POTASSIUM 3.5 MMOL/L (3.6-5.0); SODIUM 140 MMOL/L (135-145); TOTAL PROTEIN 7.3 GM/DL (6.4-8.2); TRIGLYCERIDES 138 MG/DL (<150); VLDL CHOLESTEROL 28 MG/DL (5-40)
[2016-12-09 12:08] LABS: THYROID STIMULATING HORMONE 1.15 UIU/ML (0.35-4.94)
== END ==
LOC: LAB 10:44
PROVIDERS: ATTEND Family Medicine
DX: R53.1 Weakness (principal); R19.7 Diarrhea, unspecified; R63.4 Abnormal weight loss
CPT/HCPCS: 36415; 80053; 80061; 84443; 85025

== ENCOUNTER 2017-01-02 05:35 | Outpatient (CLI) | payer MEDICARE, OTHER ==
[~2017-01-02] VITALS: Ht 167.6 cm; Wt 57.3 kg
== END 2017-01-02 15:04 ==
LOC: PREOP 05:35
PROVIDERS: ATTEND Surgery
DX: Z80.0 Family history of malignant neoplasm of digestive organs; R19.7 Diarrhea, unspecified; Z01.818 Encounter for other preprocedural examination

== ENCOUNTER 2017-01-06 07:14 | Day surgery (SDC) | payer MEDICARE, OTHER ==
[~2017-01-06] VITALS: Ht 167.6 cm; Wt 57.3 kg
[2017-01-06] MEDS ORDERED: NS IV 500 ML 500 ML ONE ×2 (07:33→09:09)
[2017-01-06 07:45] VITALS: BP 114/77
[2017-01-06] MEDS: NS IV 500 ML 500 ML IV PRN ×2 (07:45→09:15)
[2017-01-06] MEDS ORDERED: fentaNYL INJECTION 100 MCG/2 ML AMP ONE ×2 (08:05)
[2017-01-06] MEDS ORDERED: MIDAZOLAM 2 MG/2 ML (VERSED) VIAL ONE ×4 (08:05)
--- NOTE | 2017-01-06 08:14 | History & Physicial ---
History of Present Illness History of Present Illness Reason for visit/HPI For colonoscopy to evaluate diarrhea and weight loss. Date of Admission Date Seen by Provider: Jan 06, 2017 Time Seen by Provider: 08:11 I consulted on this patient on 01/06/17 08:10 Attending Physician Moises Tucker MD Admitting Physician Armond Negron DO Consult Allergies and Home Medications Allergies Coded Allergies: No Known Drug Allergies (Unverified , 01/02/17) Home Medications No Active Prescriptions or Reported Meds Past Tukdsgl-Ykbeuz-Ksthbq Hx Patient Social History Marrital Status: Employed/Student: retired Alcohol Use: Rarely Uses Number of Drinks Today: Alcohol Beverage of Choice: Wine Recreational Drug Use: No Smoking Status: Former Smoker Former Smoker, Quit: Jan 02, 1975 2nd Hand Smoke Exposure: No Recent Foreign Travel: No Contact w/other who traveled: No Recent Hopitalizations: No Recent Infectious Disease Expo: No Immunizations Up To Date Tetanus Booster (TDap): Unknown Date of Pneumonia Vaccine: Oct 11, 2013 Date of Influenza Vaccine: Jan 13, 2016 Seasonal Allergies Seasonal Allergies: No Surgeries Yes (HIATAL HERNIA, EGD, COLONOSCOPY, BREAT BIOPSY X2) Abdominal, Bladder Surgery, Breast, Gallbladder, Renal Respiratory No Currently Using CPAP: No Currently Using BIPAP: No Cardiovascular No Neurological Yes Dementia Reproductive System Hx Reproductive Disorders: No Sexually Transmitted Disease: No HIV/AIDS: No 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 Disorders: Denies ORCHID GROWER History: Menopausal Genitourinary Yes Bladder Infection, Kidney Stones Gastrointestinal Yes Chronic Constipation, Chronic Diarrhea, Irritable Bowel Musculoskeletal No Endocrine History of Endocrine Disorders: No HEENT HEENT Disorders: Cataract Loss of Vision: Denies Hearing Impairment: Denies Cancer No Psychosocial History of Psychiatric Problem: Yes Behavioral Health Disorders: Anxiety Integumentary History of Skin or Integumenta: No Blood Transfusions History of Blood Disorders: No Adverse Reaction to a Blood Tr: No (N/A) Family Medical History Significant Family History: No Pertinent Family Hx Family Hx: Cancer 19 MOTHER, Onset:Unknown Cancer of colon 19 FATHER Constitutional: malaise, weakness, weight loss EENTM: no symptoms reported Respiratory: no symptoms reported Cardiovascular: no symptoms reported Gastrointestinal: diarrhea Musculoskeletal: no symptoms reported Skin: no symptoms reported Psychiatric/Neurological: No Symptoms Reported Physical Exam Vital Signs Vital Sign - Last 12Hours 01/06/17 07:45 Temp 97.8 Pulse 76 Resp 18 B/P (MAP) 114/77 Pulse Ox 98 O2 Delivery Room Air Capillary Refill : General Appearance: Anxious HEENT: Normal ENT Inspection Neck: Normal Inspection Respiratory: Lungs Clear Rectal: Deferred Extremity: Normal Inspection Neurologic/Psychiatric: Alert, Oriented x3 Skin: Warm/Dry Assessment/Plan Assessment and Plan Lady with diarrhea and weight loss, for colonoscopy Problems: MOISES TUCKER MD Jan 06, 2017 8:14 am
--- NOTE | 2017-01-06 08:15 | Conscious Sedation/ASA ---
Conscious Sedation Pre-Proced Time Reviewed: 08:14 ASA Class: 2 Airway Mallampati Classification: (standing rock appropriate class) I. II. III, IV Lungs Heart ASA score ASA 1: a normal healthy patient ASA 2: a patient with a mild systemic disease (mid diabetes, controlled hypertension, obesity ASA 3: a patient with a severe systemic disease that limits activity (angina , COPD, prior Myocardial infarction) ASA 4: a patient with an incapacitating disease that is a constant threat to life (CHF, renal failure) ASA 5: a moribund patient not expected to survive 24 hrs. (ruptured aneurysm) ASA 6: a declared brain patient whose organs are being harvested. For emergent operations, add the letter E after the classification Grade 2 Sedation Plan: Discussed options with patient/fam Note The patient is an appropriate candidate to undergo the planned procedure, sedation, and anesthesia. The patient immediately re-assessed prior to indication. MOISES TUCKER MD Jan 06, 2017 8:14 am
[2017-01-06] MEDS: fentaNYL INJECTION 100 MCG/2 ML AMP IVP PRN ×4 (08:33→08:49)
[2017-01-06] MEDS: MIDAZOLAM 2 MG/2 ML (VERSED) VIAL IVP PRN ×4 (08:34→08:50)
--- NOTE | 2017-01-06 08:59 | Endo Procedure Record ---
Endo Procedure Report Date of Procedure Jan 06, 2017 Surgeon (s) MOISES TUCKER MD Post Procedure/Op Diagnosis sigmoid diverticulosis Procedure Performed colonoscopy to cecum Description of Procedure Anesthesia Type: Conscious Sedation Specimen(s) collected/removed none Description of the Procedure indication for procedure: This lady came in for colonoscopy to investigate ongoing diarrhea, postprandial abdominal pain performed weight loss and on the basis of a family history of colon cancer. Informed consent was obtained after reviewing the procedure in detail. Description of procedure: She was placed in left lateral decubitus position and her vital signs were monitored. Conscious sedation was achieved using Versed and fentanyl. Digital rectal examination was unremarkable. The colonoscope was then introduced into the rectum and advanced all the way up to the cecum The scope was withdrawn slowly and the mucosa examined in a systematic fashion. Finding: Diffuse, uncomplicated, sigmoid diverticulosis She tolerated the procedure well and was taken back to the nursing area in a stable condition. Impression: Diarrhea and weight loss and family history of colon cancer. No polyps found. Diverticulosis NOTE: will obtain focused imaging of the mesenteric vessels to rule out chronic mesenteric ischemia, as an outpatient Copies To: RICARDO SRIVASTAVA XAVIER M MD Jan 06, 2017 08:59
--- NOTE | 2017-01-06 09:01 | Discharge Inst-Simple/Standard ---
Discharge Inst-Standard Discharge Medications New, Converted or Re-Newed RX: Other Patient Instructions/Follow Up Plan of Care/Instructions/FU: pL SCHEDULE A CT ANGIOGRAM (WITH iv CONTRAST) REG CHRONIC MESENTERIC ISCHEMIA. AN OUTPATIENT Activity as Tolerated: Yes Discharge Diet: No Restrictions MOISES TUCKER MD Jan 06, 2017 09:00
[2017-01-06 09:35] VITALS: BP 92/63
[2017-01-06 10:00] VITALS: BP 106/74
[2017-01-06 10:10] VITALS: BP 106/74
== END 2017-01-06 10:10 | disposition home or self-care (01) ==
LOC: ENDO 07:14
PROVIDERS: ATTEND Surgery
DX: K57.30 Diverticulosis of large intestine without perforation or abscess without bleeding (principal); R19.7 Diarrhea, unspecified; R63.4 Abnormal weight loss; Z80.0 Family history of malignant neoplasm of digestive organs; F41.9 Anxiety disorder, unspecified

== ENCOUNTER → 2017-01-08 | Outpatient (CLI) | payer MEDICARE, OTHER ==
[~2017-01-08] MED LIST changes: +IOHEXOL 350 MG/ML 100 ML (OMNIPAQUE 350) VIAL IV ONE; +NS 100 ML (IVPB) BAG IV ONE
--- NOTE | 2017-01-08 10:59 | Diagnostic Imaging Report ---
EXAMINATION: CT angiogram of the abdomen. MIP reconstructions in the coronal and sagittal planes are performed. INDICATION: Chronic abdominal pain. 80 mL of Omnipaque 350 is administered intravenously. FINDINGS: The lung bases appear clear. There are surgical clips at the gastroesophageal junction. Correlate with surgical history. The liver, the spleen, the pancreas, and the adrenal glands appear unremarkable. The kidneys have symmetric enhancement and contrast excretion. There is no hydronephrosis. The abdominal aorta is normal in caliber. No para-aortic significantly enlarged lymph node is seen. No significant free fluid or fluid collection is seen in the abdomen. CTA findings include patent abdominal aorta with minimal atherosclerotic changes. There is mild plaque at the celiac trunk origin with no stenosis. The SMA is patent with no significant disease. The inferior mesenteric artery is patent. The renal arteries appear clear. The osseous structures demonstrate grade 1 spondylolisthesis of L4 over L5 and prominent facet degenerative changes in the lower lumbar spine. IMPRESSION: No significant vascular disease in the abdominal aorta or mesenteric vessels. Dictated by: Dictated on workstation # [id number]
== END ==
LOC: RAD 09:37
PROVIDERS: ATTEND Surgery
DX: K55.059 Acute (reversible) ischemia of intestine, part and extent unspecified (principal)
CPT/HCPCS: 74175

== ENCOUNTER 2017-06-03 13:16 | Emergency (ER) | payer MEDICARE, OTHER ==
[~2017-06-03] VITALS: Ht 167.6 cm; Wt 55.8 kg
[~2017-06-03 13:16] MED LIST changes: +ACHD5005 PO; -HYDR-3812 PO; -IOHEXOL 350 MG/ML 100 ML (OMNIPAQUE 350) VIAL IV ONE; -NS 100 ML (IVPB) BAG IV ONE
[2017-06-03] MEDS ORDERED: ASPIRIN 81 MG CHEW (CHILDREN'S ASA) PO ONE (13:30)
[2017-06-03 13:42] LABS: BASOPHILS % (AUTO) 0 % (0-10); EOSINOPHILS # (AUTO) 0.1 10^3/uL (0.0-0.3); EOSINOPHILS % (AUTO) 1 % (0-10); HEMATOCRIT 40 % (35-52); HEMOGLOBIN 13.9 G/DL (11.5-16.0); LYMPHOCYTES # (AUTO) 2.5 X 10^3 (1.0-4.0); LYMPHOCYTES % (AUTO) 30 % (12-44); MEAN CORPUSCULAR HEMOGLOBIN 30 PG (25-34); MEAN CORPUSCULAR HGB CONC 35 G/DL (32-36); MEAN CORPUSCULAR VOLUME 86 FL (80-99); MEAN PLATELET VOLUME 10.6 FL (7.4-10.4); MONOCYTES # (AUTO) 0.5 X 10^3 (0.0-1.0); MONOCYTES % (AUTO) 6 % (0-12); NEUTROPHILS # (AUTO) 5.1 X 10^3 (1.8-7.8); NEUTROPHILS % (AUTO) 62 % (42-75); PLATELET COUNT 339 10^3/uL (130-400); RED BLOOD COUNT 4.71 10^6/uL (4.35-5.85); RED CELL DISTRIBUTION WIDTH 12.9 % (10.0-14.5); WHITE BLOOD COUNT 8.2 10^3/uL (4.3-11.0)
--- NOTE | 2017-06-03 13:50 | ED Chest Pain ---
General Stated Complaint: SOA Source: patient, family History of Present Illness Date Seen by Provider: Jun 03, 2017 Time Seen by Provider: 13:18 Initial Comments Here with report of overriding complaints including chest pain, shortness of breath, weakness, anxiousness and overall not feeling well. This is been going on for a month and worse over the last week or 2. She's been off her medications for the last couple of weeks or taking them intermittently. She does have known depression and anxiety and has been worked up at [facility]. Denies nausea or vomiting. Very anxious on arrival. States pain is central and goes through to her back. Denies dysuria. Somewhat poor historian overall. 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: No Associated Symptoms: abdominal pain, back pain, No diaphoresis, No dizziness, fatigue, No fever/chills, No nausea/vomiting, shortness of breath, weakness Allergies and Home Medications Allergies Coded Allergies: No Known Drug Allergies (Verified , 01/06/17) Home Medications No Active Prescriptions or Reported Meds Review of Systems Constitutional: see HPI, No chills, No fever EENTM: No Symptoms Reported Respiratory: See HPI, SOA at Rest, Denies Wheezing Cardiovascular: Chest Pain, Denies Edema, Lightheadedness, Palpitations Gastrointestinal: No Symptoms Reported Genitourinary: No Symptoms Reported Musculoskeletal: see HPI, back pain, No neck pain Skin: no symptoms reported Psychiatric/Neurological: Anxiety, Depressed, Denies Headache Endocrine: No Symptoms Reported All Other Systems Reviewed Negative Unless Noted: Yes Past Tacqewu-Ryvops-Xxaqby Hx Patient Social History Alcohol Use: Occasionally Uses Alcohol Beverage of Choice: Wine Recreational Drug Use: No Smoking Status: Former Smoker Former Smoker, Quit: Jan 02, 1975 2nd Hand Smoke Exposure: No Recent Foreign Travel: No Contact w/Someone Who Travel: No Recent Hopitalizations: No Immunizations Up To Date Tetanus Booster (TDap): Unknown Date of Pneumonia Vaccine: Oct 11, 2013 Date of Influenza Vaccine: Jan 13, 2016 Seasonal Allergies Seasonal Allergies: No Surgeries History of Surgeries: Yes (HIATAL HERNIA, EGD, COLONOSCOPY, BREAT BIOPSY X2) Surgeries: Abdominal, Bladder Surgery, Breast, Gallbladder, Renal Respiratory History of Respiratory Disorde: No Currently Using CPAP: No Currently Using BIPAP: No Cardiovascular History of Cardiac Disorders: No Neurological History of Neurological Disord: Yes Neurological Disorders: Dementia Reproductive System Hx Reproductive Disorders: No Sexually Transmitted Disease: No HIV/AIDS: No 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 Genitourinary History of Genitourinary Disor: Yes Genitourinary Disorders: Bladder Infection, Kidney Stones Gastrointestinal History of Gastrointestinal Di: Yes Gastrointestinal Disorders: Chronic Constipation, Chronic Diarrhea, Irritable Bowel Musculoskeletal History of Musculoskeletal Dis: No Endocrine History of Endocrine Disorders: No HEENT HEENT Disorders: Cataract Loss of Vision: Denies Hearing Impairment: Denies Cancer History of Cancer: No Psychosocial History of Psychiatric Problem: Yes Behavioral Health Disorders: Anxiety Integumentary History of Skin or Integumenta: No Blood Transfusions History of Blood Disorders: No Adverse Reaction to a Blood Tr: No (N/A) Reviewed Nursing Assessment Reviewed/Agree w Nursing PMH: Yes Family Medical History Significant Family History: No Pertinent Family Hx Family Medial History: Cancer 19 MOTHER, Onset:Unknown Cancer of colon 19 FATHER Physical Exam Vital Signs Vital Signs - First Documented 06/03/17 13:16 Temp 97.2 Pulse 99 Resp 16 B/P (MAP) 92/57 (69) Pulse Ox 97 Capillary Refill : General Appearance: WD/WN, Anxious HEENT: PERRL/EOMI, Pharynx Normal Neck: Non Tender, Supple Respiratory: Lungs Clear, Normal Breath Sounds Cardiovascular: No Murmur, Tachycardia Gastrointestinal: Non Tender, Soft Extremity: Normal Capillary Refill, Normal Inspection, Normal Range of Motion, Non Tender Neurologic/Psychiatric: Alert, Oriented x3, No Motor/Sensory Deficits Skin: Normal Color, Warm/Dry Progress/Results/Core Measures Results/Orders Lab Results Laboratory Tests Test 06/03/17 13:34 06/03/17 14:05 Range/Units White Blood Count 8.2 4.3-11.0 10^3/uL Red Blood Count 4.71 4.35-5.85 10^6/uL Hemoglobin 13.9 11.5-16.0 G/DL Hematocrit 40 35-52 % Mean Corpuscular Volume 86 80-99 FL Mean Corpuscular Hemoglobin 30 25-34 PG Mean Corpuscular Hemoglobin Concent 35 32-36 G/DL Red Cell Distribution Width 12.9 10.0-14.5 % Platelet Count 339 130-400 10^3/uL Mean Platelet Volume 10.6 H 7.4-10.4 FL Neutrophils (%) (Auto) 62 42-75 % Lymphocytes (%) (Auto) 30 12-44 % Monocytes (%) (Auto) 6 0-12 % Eosinophils (%) (Auto) 1 0-10 % Basophils (%) (Auto) 0 0-10 % Neutrophils # (Auto) 5.1 1.8-7.8 X 10^3 Lymphocytes # (Auto) 2.5 1.0-4.0 X 10^3 Monocytes # (Auto) 0.5 0.0-1.0 X 10^3 Eosinophils # (Auto) 0.1 0.0-0.3 10^3/uL Basophils # (Auto) 0.0 0.0-0.1 10^3/uL Sodium Level 141 135-145 MMOL/L Potassium Level 4.1 3.6-5.0 MMOL/L Chloride Level 107 98-107 MMOL/L Carbon Dioxide Level 22 21-32 MMOL/L Anion Gap 12 5-14 MMOL/L Blood Urea Nitrogen 22 H 7-18 MG/DL Creatinine 0.78 0.60-1.30 MG/DL Estimat Glomerular Filtration Rate > 60 BUN/Creatinine Ratio 28 Glucose Level 123 H 70-105 MG/DL Calcium Level 9.9 8.5-10.1 MG/DL Magnesium Level 2.2 1.8-2.4 MG/DL Total Bilirubin 0.5 0.1-1.0 MG/DL Aspartate Amino Transf (AST/SGOT) 19 5-34 U/L Alanine Aminotransferase (ALT/SGPT) 14 0-55 U/L Alkaline Phosphatase 68 40-136 U/L Myoglobin 18.7 10.0-92.0 NG/ML Troponin I < 0.30 <0.30 NG/ML B-Type Natriuretic Peptide 13.1 <100.0 PG/ML Total Protein 7.2 6.4-8.2 GM/DL Albumin 4.2 3.2-4.5 GM/DL Lipase 41 8-78 U/L Urine Color YELLOW Urine Clarity SLIGHTLY CLOUDY Urine pH 5 5-9 Urine Specific [place] 1.030 H 1.016-1.022 Urine Protein 2+ H NEGATIVE Urine Glucose (UA) NEGATIVE NEGATIVE Urine Ketones 1+ H NEGATIVE Urine Nitrite NEGATIVE NEGATIVE Urine Bilirubin NEGATIVE NEGATIVE Urine Urobilinogen NORMAL NORMAL MG/DL Urine Leukocyte Esterase 3+ H NEGATIVE Urine RBC (Auto) 4+ H NEGATIVE Urine RBC 2-5 H /HPF Urine WBC 50-100 H /HPF Urine Squamous Epithelial Cells 10-25 H /HPF Urine Crystals PRESENT H /LPF Urine Calcium Oxalate Crystals RARE H /LPF Urine Bacteria MODERATE H /HPF Urine Casts NONE /LPF Urine Mucus SMALL H /LPF Urine Culture Indicated YES My Orders Orders - KYAW SAUCEDA MD Cbc With Automated Diff (06/03/17 13:21) Magnesium (06/03/17 13:21) Chest 1 View, Ap/Pa Only (06/03/17 13:21) Ekg Tracing (06/03/17 13:21) Cardiac Profile 1 (06/03/17 13:21) Comprehensive Metabolic Panel (06/03/17 13:21) Myoglobin Serum (06/03/17 13:21) O2 (06/03/17 13:21) Monitor-Rhythm Ecg Trace Only (06/03/17 13:21) Lipid Panel (06/04/17 06:00) Aspirin Chewable Tablet (Baby Aspirin Ch (06/03/17 13:30) Saline Lock/Iv-Start (06/03/17 13:21) Lipase (06/03/17 13:21) BNP (06/03/17 13:21) Ns Iv 1000 Ml (Sodium Chloride 0.9%) (06/03/17 13:53) Ua Culture If Indicated (06/03/17 13:58) Urine Culture (06/03/17 14:05) Medications Given in ED Current Medications Medications Dose Ordered Sig/Yoni Route Start Time Stop Time Status Last Admin Dose Admin Aspirin 324 mg ONCE ONCE PO 06/03/17 13:30 06/03/17 13:31 DC 06/03/17 13:38 324 MG Sodium Chloride 1,000 ml @ 0 mls/hr Q0M ONCE IV 06/03/17 13:53 06/03/17 13:54 DC 06/03/17 13:57 1,000 MLS/HR Vital Signs/I&O Vital Sign - Last 12Hours 06/03/17 13:16 Temp 97.2 Pulse 99 Resp 16 B/P (MAP) 92/57 (69) Pulse Ox 97 Progress Note : Progress Note Seen and evaluated. IV, labs, EKG and chest x-ray ordered. Normal saline 1 L bolus ordered. Monitor patient. ECG Initial ECG Impression Date: Jun 03, 2017 Initial ECG Impression Time: 13:19 Initial ECG Rate: 97 Initial ECG Rhythm: Normal Sinus Comment Sinus rhythm with left atrial abnormality. Normal axis. Borderline tachycardia. No evidence of ST elevation [place]. No previous available for comparison. Interpreted by me. Departure Impression Impression: Primary Impression: Urinary tract infection Qualified Codes: N30.00 - Acute cystitis without hematuria Additional Impression: Chest pain Qualified Codes: R07.9 - Chest pain, unspecified Disposition: 01 HOME, SELF-CARE (they decided that she was complained Feel Well and Shelly Interfering with a Blood Pressure Was Borderline Low but Is Much of This That She Is Somewhat Is Rechecked at the Some Labs and EKG If These Aren 't New Go Home and Is Also Related) Condition: Improved Departure-Patient Inst. Decision time for Depature: 15:33 Referrals: RICARDO SRIVASTAVA DO (PCP/Family) Primary Care Physician Patient Instructions: Chest Pain (DC), Urinary Tract Infection, Adult (DC) Add. Discharge Instructions: It is important that he started the medicines that were prescribed to you from the [facility]. Take other medications as directed. He had a urinary tract infection and you have been prescribed antibiotics and should take those as directed. Follow up with your DrEmma in 2-3 days for recheck. Return for worse pain, fever, vomiting, weakness, breathing problems or other concerns as needed. Scripts Cephalexin (Cephalexin) 500 Mg Tablet 500 MG PO BID, #14 TAB 0 Refills Prov: KYAW SAUCEDA MD 06/03/17 KYAW SAUCEDA MD Jun 03, 2017 13:50
[2017-06-03] MEDS ORDERED: NS IV 1000 ML 1,000 ML IV ONE (13:53)
[2017-06-03 14:00] LABS: ALANINE AMINOTRANSFERASE 14 U/L (0-55); ALBUMIN 4.2 GM/DL (3.2-4.5); ALKALINE PHOSPHATASE 68 U/L (40-136); BILIRUBIN,TOTAL 0.5 MG/DL (0.1-1.0); BUN/CREATININE RATIO 28; CALCIUM 9.9 MG/DL (8.5-10.1); CARBON DIOXIDE 22 MMOL/L (21-32); CHLORIDE 107 MMOL/L (98-107); CREATININE SERUM 0.78 MG/DL (0.60-1.30); GFR ESTIMATED > 60; GLUCOSE 123 MG/DL (70-105); LIPASE 41 U/L (8-78); MAGNESIUM 2.2 MG/DL (1.8-2.4); POTASSIUM 4.1 MMOL/L (3.6-5.0); SODIUM 141 MMOL/L (135-145); TOTAL PROTEIN 7.2 GM/DL (6.4-8.2)
[2017-06-03 14:07] LABS: MYOGLOBIN SERUM 18.7 NG/ML (10.0-92.0)
--- NOTE | 2017-06-03 14:14 | Diagnostic Imaging Report ---
INDICATION: Difficulty breathing. TIME OF EXAM: 1:55 PM FINDINGS: The heart size is normal. The pulmonary vascularity is unremarkable. The lungs are clear. No infiltrate, effusion or pneumothorax is detected. Impression: No acute cardiopulmonary process is detected. Dictated by: Dictated on workstation # [id number]
[2017-06-03 14:16] LABS: BILIRUBIN,URINE NEGATIVE (NEGATIVE); CLARITY,URINE SLIGHTLY CLOUDY; COLOR,URINE YELLOW; GLUCOSE, URINE (UA) NEGATIVE (NEGATIVE); KETONES,URINE 1+ (NEGATIVE); LEUKOCYTE ESTERASE ,URINE 3+ (NEGATIVE); NITRITE,URINE NEGATIVE (NEGATIVE); PH,URINE 5 (5-9); PROTEIN,URINE 2+ (NEGATIVE); UROBILINOGEN,URINE NORMAL (NORMAL)
[2017-06-03 14:23] LABS: BACTERIA,URINE MODERATE /HPF; CALCIUM OXALATE CRYSTALS,UR RARE /LPF; WBC,URINE 50-100 /HPF
[2017-06-03] MEDS ORDERED: CEPH500T PO (15:32)
[2017-06-03 15:55] VITALS: BP 92/57
== END 2017-06-03 15:55 | disposition home or self-care (01) ==
LOC: EDUNIT# 13:16 → ER 13:18
DX: N39.0 Urinary tract infection, site not specified (principal); R07.9 Chest pain, unspecified; F32.9 Major depressive disorder, single episode, unspecified; F41.9 Anxiety disorder, unspecified; F03.90 Unspecified dementia, unspecified severity, without behavioral disturbance, psychotic disturbance, mood disturbance, and anxiety; Z80.0 Family history of malignant neoplasm of digestive organs; Z87.442 Personal history of urinary calculi; Z87.448 Personal history of other diseases of urinary system; Z87.891 Personal history of nicotine dependence; Z87.19 Personal history of other diseases of the digestive system
CPT/HCPCS: 36415; 71045; 80053; 81000; 83690; 83735; 83874; 83880; 84484; 85025; 87077; 87088; 93005; 93041

== ENCOUNTER 2017-06-07 14:02 | Emergency (ER) | payer MEDICARE, OTHER ==
[~2017-06-07] VITALS: Ht 167.6 cm; Wt 55.8 kg
[~2017-06-07 14:02] MED LIST changes: +CEPH500T PO; +SULF1TAB35 PO
[2017-06-07] MEDS ORDERED: PHENAZOPYRIDINE 100 MG (PYRIDIUM) TABLET PO ONE (14:15)
[2017-06-07] MEDS ORDERED: KETOROLAC 30 MG/ML VIAL IVP ONE (14:15)
--- NOTE | 2017-06-07 14:15 | ED GU-Female ---
General Stated Complaint: UTI Source: patient Exam Limitations: no limitations History of Present Illness Date Seen by Provider: Jun 07, 2017 Time Seen by Provider: 14:13 Initial Comments To ER completely by with reports of UTI. She was seen here on 06/03 diagnosed with UTI and treated empirically with Keflex. Culture later showed Klebsiella pneumonia sensitive to Bactrim so the Keflex was stopped and she was changed to Bactrim started on the . She denies fevers or chills but reports worsening suprapubic pain. Timing/Duration: constant Severity/Quality: moderate Location: suprapubic Activities at Onset: none Prior Genitourinary Problems: none Associated Symptoms: urinary frequency Allergies and Home Medications Allergies Coded Allergies: No Known Drug Allergies (Verified , 01/06/17) Home Medications Cephalexin 500 Mg Tablet, 500 MG PO BID Prescribed by: KYAW SAUCEDA on 06/03/17 1532 Sulfamethoxazole/Trimethoprim 1 Each Tablet, 1 EACH PO BID, (Reported) Constitutional: see HPI, No chills, No fever EENTM: see HPI Respiratory: no symptoms reported Cardiovascular: no symptoms reported Genitourinary: see HPI, dysuria, pain Musculoskeletal: no symptoms reported Skin: no symptoms reported Psychiatric/Neurological: No Symptoms Reported Past Qbiuygz-Dbcdlk-Sgpkal Hx Patient Social History Alcohol Beverage of Choice: Wine Former Smoker, Quit: Jan 02, 1975 2nd Hand Smoke Exposure: No Recent Foreign Travel: No Contact w/Someone Who Travel: No Recent Hopitalizations: No Immunizations Up To Date Tetanus Booster (TDap): Unknown Date of Pneumonia Vaccine: Oct 11, 2013 Date of Influenza Vaccine: Jan 13, 2016 Seasonal Allergies Seasonal Allergies: No Surgeries History of Surgeries: Yes (HIATAL HERNIA, EGD, COLONOSCOPY, BREAT BIOPSY X2) Surgeries: Abdominal, Bladder Surgery, Breast, Gallbladder, Renal Respiratory History of Respiratory Disorde: No Currently Using CPAP: No Currently Using BIPAP: No Cardiovascular History of Cardiac Disorders: No Neurological History of Neurological Disord: Yes (SLEEP PROBLEMS/RESTLESS, POSS DEMENTIA) Neurological Disorders: Dementia Reproductive System Hx Reproductive Disorders: No Sexually Transmitted Disease: No HIV/AIDS: No 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 Genitourinary History of Genitourinary Disor: Yes Genitourinary Disorders: Bladder Infection, Kidney Stones Gastrointestinal History of Gastrointestinal Di: Yes (CHRONIC ABDOMINAL PAIN) Gastrointestinal Disorders: Chronic Constipation, Chronic Diarrhea, Irritable Bowel Musculoskeletal History of Musculoskeletal Dis: No Endocrine History of Endocrine Disorders: No HEENT HEENT Disorders: Cataract Loss of Vision: Denies Hearing Impairment: Denies Cancer History of Cancer: No Psychosocial History of Psychiatric Problem: Yes Behavioral Health Disorders: Anxiety Integumentary History of Skin or Integumenta: No Blood Transfusions History of Blood Disorders: No Adverse Reaction to a Blood Tr: No (N/A) Family Medical History Significant Family History: No Pertinent Family Hx Family Medial History: Cancer 19 MOTHER, Onset:Unknown Cancer of colon 19 FATHER Physical Exam Vital Signs Vital Signs - First Documented 06/07/17 14:10 Temp 97.9 Pulse 88 Resp 18 B/P (MAP) 123/67 (85) Pulse Ox 95 Capillary Refill : General Appearance: WD/WN, no apparent distress HEENT: PERRL/EOMI, normal ENT inspection Neck: non-tender, full range of motion Respiratory: normal breath sounds, no respiratory distress, no accessory muscle use Gastrointestinal: normal bowel sounds, soft, tenderness Neurologic/Psychiatric: alert, normal mood/affect, oriented x 3 Skin: normal color, warm/dry Comments Patient is very tearful, rates her pain at "20" on a scale from 0-10. Complains about the blood pressure cuff being too tight. He asked where she hurts she states "will where do you think?!" Progress/Results/Core Measures Suspected Sepsis SIRS Temperature: Pulse: Respiratory Rate: Laboratory Tests 06/07/17 14:15: White Blood Count 8.1 Blood Pressure / Mean: Laboratory Tests 06/07/17 14:15: Creatinine 0.83, Platelet Count 332 Results/Orders Lab Results Laboratory Tests Test 06/07/17 14:15 06/07/17 14:25 Range/Units White Blood Count 8.1 4.3-11.0 10^3/uL Red Blood Count 4.82 4.35-5.85 10^6/uL Hemoglobin 14.4 11.5-16.0 G/DL Hematocrit 42 35-52 % Mean Corpuscular Volume 87 80-99 FL Mean Corpuscular Hemoglobin 30 25-34 PG Mean Corpuscular Hemoglobin Concent 34 32-36 G/DL Red Cell Distribution Width 13.2 10.0-14.5 % Platelet Count 332 130-400 10^3/uL Mean Platelet Volume 10.8 H 7.4-10.4 FL Neutrophils (%) (Auto) 54 42-75 % Lymphocytes (%) (Auto) 37 12-44 % Monocytes (%) (Auto) 6 0-12 % Eosinophils (%) (Auto) 2 0-10 % Basophils (%) (Auto) 1 0-10 % Neutrophils # (Auto) 4.4 1.8-7.8 X 10^3 Lymphocytes # (Auto) 3.0 1.0-4.0 X 10^3 Monocytes # (Auto) 0.5 0.0-1.0 X 10^3 Eosinophils # (Auto) 0.1 0.0-0.3 10^3/uL Basophils # (Auto) 0.0 0.0-0.1 10^3/uL Sodium Level 138 135-145 MMOL/L Potassium Level 3.9 3.6-5.0 MMOL/L Chloride Level 104 98-107 MMOL/L Carbon Dioxide Level 20 L 21-32 MMOL/L Anion Gap 14 5-14 MMOL/L Blood Urea Nitrogen 17 7-18 MG/DL Creatinine 0.83 0.60-1.30 MG/DL Estimat Glomerular Filtration Rate > 60 BUN/Creatinine Ratio 20 Glucose Level 90 70-105 MG/DL Calcium Level 9.4 8.5-10.1 MG/DL Urine Color YELLOW Urine Clarity VERY CLOUDY H Urine pH 6 5-9 Urine Specific [place] 1.025 H 1.016-1.022 Urine Protein 1+ H NEGATIVE Urine Glucose (UA) NEGATIVE NEGATIVE Urine Ketones NEGATIVE NEGATIVE Urine Nitrite NEGATIVE NEGATIVE Urine Bilirubin NEGATIVE NEGATIVE Urine Urobilinogen NORMAL NORMAL MG/DL Urine Leukocyte Esterase 2+ H NEGATIVE Urine RBC (Auto) 2+ H NEGATIVE Urine RBC NONE /HPF Urine WBC 0-2 /HPF Urine Squamous Epithelial Cells 2-5 /HPF Urine Crystals PRESENT H /LPF Urine Uric Acid Crystals LARGE H /LPF Urine Bacteria NEGATIVE /HPF Urine Casts NONE /LPF Urine Mucus NEGATIVE /LPF Urine Culture Indicated NO My Orders Orders - BETTE GIRON APRN Ua Culture If Indicated (06/07/17 14:06) Saline Lock/Iv-Start (06/07/17 14:11) Cbc With Automated Diff (06/07/17 14:11) Basic Metabolic Panel (06/07/17 14:11) Ketorolac Injection (Toradol Injection) (06/07/17 14:15) Phenazopyridine Tablet (Pyridium Tablet) (06/07/17 14:15) Medications Given in ED Current Medications Medications Dose Ordered Sig/Yoni Route Start Time Stop Time Status Last Admin Dose Admin Ketorolac Tromethamine 30 mg ONCE ONCE IVP 06/07/17 14:15 06/07/17 14:16 DC 06/07/17 14:21 30 MG Phenazopyridine HCl 200 mg ONCE ONCE PO 06/07/17 14:15 06/07/17 14:16 DC 06/07/17 14:21 200 MG Vital Signs/I&O Vital Sign - Last 12Hours 06/07/17 14:10 Temp 97.9 Pulse 88 Resp 18 B/P (MAP) 123/67 (85) Pulse Ox 95 Capillary Refill : Departure Impression Impression: Primary Impression: Cystitis Disposition: HOME, SELF-CARE Condition: Stable Departure-Patient Inst. Decision time for Depature: 15:14 Referrals: RICARDO SRIVASTAVA DO (PCP/Family) Primary Care Physician Patient Instructions: Urinary Tract Infection, Adult (DC) Add. Discharge Instructions: 1.. Drink plenty of fluids so that you are urinating about every 3 hours 2. Medication as directed 3. Return to ER for any concerns 4. Continue the current antibiotics until they are completely finished. Scripts Phenazopyridine HCl (Pyridium) 100 Mg Tablet 100 MG PO TID, #9 TAB Prov: BETTE GIRON APRN 06/07/17 BETTE GIRON APRN Jun 07, 2017 14:15
[2017-06-07 14:30] LABS: BASOPHILS % (AUTO) 1 % (0-10); EOSINOPHILS # (AUTO) 0.1 10^3/uL (0.0-0.3); EOSINOPHILS % (AUTO) 2 % (0-10); HEMATOCRIT 42 % (35-52); HEMOGLOBIN 14.4 G/DL (11.5-16.0); LYMPHOCYTES % (AUTO) 37 % (12-44); MEAN CORPUSCULAR HEMOGLOBIN 30 PG (25-34); MEAN CORPUSCULAR HGB CONC 34 G/DL (32-36); MEAN CORPUSCULAR VOLUME 87 FL (80-99); MEAN PLATELET VOLUME 10.8 FL (7.4-10.4); MONOCYTES # (AUTO) 0.5 X 10^3 (0.0-1.0); MONOCYTES % (AUTO) 6 % (0-12); NEUTROPHILS # (AUTO) 4.4 X 10^3 (1.8-7.8); NEUTROPHILS % (AUTO) 54 % (42-75); PLATELET COUNT 332 10^3/uL (130-400); RED BLOOD COUNT 4.82 10^6/uL (4.35-5.85); RED CELL DISTRIBUTION WIDTH 13.2 % (10.0-14.5); WHITE BLOOD COUNT 8.1 10^3/uL (4.3-11.0)
[2017-06-07 14:44] LABS: BUN/CREATININE RATIO 20; CALCIUM 9.4 MG/DL (8.5-10.1); CARBON DIOXIDE 20 MMOL/L (21-32); CHLORIDE 104 MMOL/L (98-107); CREATININE SERUM 0.83 MG/DL (0.60-1.30); GFR ESTIMATED > 60; GLUCOSE 90 MG/DL (70-105); POTASSIUM 3.9 MMOL/L (3.6-5.0); SODIUM 138 MMOL/L (135-145)
[2017-06-07 14:53] LABS: BILIRUBIN,URINE NEGATIVE (NEGATIVE); CLARITY,URINE VERY CLOUDY; COLOR,URINE YELLOW; GLUCOSE, URINE (UA) NEGATIVE (NEGATIVE); KETONES,URINE NEGATIVE (NEGATIVE); LEUKOCYTE ESTERASE ,URINE 2+ (NEGATIVE); NITRITE,URINE NEGATIVE (NEGATIVE); PH,URINE 6 (5-9); PROTEIN,URINE 1+ (NEGATIVE); UROBILINOGEN,URINE NORMAL (NORMAL)
[2017-06-07 15:04] LABS: BACTERIA,URINE NEGATIVE /HPF; URIC ACID CRYSTALS,URINE LARGE /LPF; WBC,URINE 0-2 /HPF
[2017-06-07] MEDS ORDERED: fentaNYL INJECTION 100 MCG/2 ML AMP IVP ONE (15:15)
[2017-06-07] MEDS ORDERED: PHEN-639 PO (15:17)
[2017-06-07 15:25] VITALS: BP 123/67
== END 2017-06-07 15:25 | disposition home or self-care (01) ==
LOC: EDUNIT# 14:02 → ER 14:03
DX: N30.90 Cystitis, unspecified without hematuria (principal); F41.9 Anxiety disorder, unspecified; F03.90 Unspecified dementia, unspecified severity, without behavioral disturbance, psychotic disturbance, mood disturbance, and anxiety; Z98.890 Other specified postprocedural states; Z87.891 Personal history of nicotine dependence; Z87.442 Personal history of urinary calculi
CPT/HCPCS: 36415; 80048; 81000; 85025; 96374

== ENCOUNTER 2018-12-04 14:07 | Emergency (ER) | payer MEDICARE, OTHER ==
[~2018-12-04] VITALS: Ht 167.6 cm; Wt 77.1 kg
[~2018-12-04 14:07] MED LIST changes: +BUSP10TA95 PO; +BUSP15TA60 PO; -CYAN100T PO; +CYAN100T3 PO; -DIVA125T3 PO; +DIVA125T32 PO; +LEVO500T2 PO; +MIRT15TA6 PO; +PANT40TA3 PO; +PHEN-639 PO
[2018-12-04] MEDS ORDERED: LORazepam 0.5 MG (ATIVAN) TABLET PO ONE ×2 (15:30→20:15)
[2018-12-04 15:40] LABS: BASOPHILS % (AUTO) 0 % (0-10); EOSINOPHILS % (AUTO) 0 % (0-10); HEMATOCRIT 31 % (35-52); HEMOGLOBIN 9.5 G/DL (11.5-16.0); LYMPHOCYTES # (AUTO) 1.8 X 10^3 (1.0-4.0); LYMPHOCYTES % (AUTO) 20 % (12-44); MEAN CORPUSCULAR HEMOGLOBIN 23 PG (25-34); MEAN CORPUSCULAR HGB CONC 31 G/DL (32-36); MEAN CORPUSCULAR VOLUME 75 FL (80-99); MEAN PLATELET VOLUME 10.1 FL (7.4-10.4); MONOCYTES # (AUTO) 0.6 X 10^3 (0.0-1.0); MONOCYTES % (AUTO) 7 % (0-12); NEUTROPHILS # (AUTO) 6.6 X 10^3 (1.8-7.8); NEUTROPHILS % (AUTO) 73 % (42-75); PLATELET COUNT 512 10^3/uL (130-400); RED CELL DISTRIBUTION WIDTH 16.1 % (10.0-14.5); WHITE BLOOD COUNT 9.1 10^3/uL (4.3-11.0)
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
[2018-12-04 16:01] LABS: ALANINE AMINOTRANSFERASE 19 U/L (0-55); ALBUMIN 4.5 GM/DL (3.2-4.5); ALKALINE PHOSPHATASE 97 U/L (40-136); BILIRUBIN,TOTAL 0.4 MG/DL (0.1-1.0); BUN/CREATININE RATIO 20; CALCIUM 9.7 MG/DL (8.5-10.1); CARBON DIOXIDE 25 MMOL/L (21-32); CHLORIDE 105 MMOL/L (98-107); CREATININE SERUM 0.95 MG/DL (0.60-1.30); GFR ESTIMATED 58; GLUCOSE 82 MG/DL (70-105); POTASSIUM 2.8 MMOL/L (3.6-5.0); SALICYLATE < 5.0 MG/DL (5.0-20.0); SODIUM 142 MMOL/L (135-145); TOTAL PROTEIN 7.7 GM/DL (6.4-8.2)
[2018-12-04 16:02] LABS: ACETAMINOPHEN < 10 UG/ML (10-30)
--- NOTE | 2018-12-04 16:11 | Diagnostic Imaging Report ---
PROCEDURE: CT head without contrast. TECHNIQUE: Multiple contiguous axial images were obtained through the brain without the use of intravenous contrast. Auto Exposure Controls were utilized during the CT exam to meet ALARA standards for radiation dose reduction. INDICATION: Psychiatric evaluation. FINDINGS: There is no mass, shift of the midline, or hemorrhage to suggest an acute intracranial abnormality. The ventricles are not abnormally dilated and stable in size when compared to the prior exam of 10/02/2016. The cortical atrophy and periventricular encephalomalacia seen on the prior study is again evident and has not progressed. The bone windows show no sign of a fracture or of a destructive lesion. The orbits are symmetrical and within normal limits. The sinuses where visualized are clear. IMPRESSION: 1. There is no evidence for an acute intracranial abnormality. When compared to the prior study, there has been no significant change. 2. If clinical concern regarding an underlying abnormality persists and further imaging is desired, then MRI will be recommended. Dictated by: Dictated on workstation # [id number]
[2018-12-04 16:49] LABS: CLARITY,URINE SLIGHTLY CLOUDY; COLOR,URINE YELLOW; GLUCOSE, URINE (UA) NEGATIVE (NEGATIVE); KETONES,URINE 3+ (NEGATIVE); LEUKOCYTE ESTERASE ,URINE 3+ (NEGATIVE); NITRITE,URINE NEGATIVE (NEGATIVE); PH,URINE 5 (5-9); PROTEIN,URINE 3+ (NEGATIVE); UROBILINOGEN,URINE 1 MG/DL (NORMAL)
[2018-12-04 17:01] LABS: BACTERIA,URINE MODERATE /HPF; BILIRUBIN,URINE 1+ (NEGATIVE); SQUAMOUS EPITHELIAL CELL,UR >50 /HPF
[2018-12-04 17:02] LABS: CALCIUM OXALATE CRYSTALS,UR FEW /LPF
[2018-12-04 17:13] LABS: AMPHETAMINE SCREEN, URINE NEGATIVE (NEGATIVE); BARBITURATE SCREEN URINE NEGATIVE (NEGATIVE); BENZODIAZEPINES SCREEN URINE NEGATIVE (NEGATIVE); CANNABINOID SCREEN, URINE NEGATIVE (NEGATIVE); COCAINE SCREEN URINE NEGATIVE (NEGATIVE); METHADONE STAT NEGATIVE (NEGATIVE); METHAMPHETAMINE SCREEN URINE S NEGATIVE (NEGATIVE); OPIATE SCREEN URINE NEGATIVE (NEGATIVE); OXYCODONE STAT NEGATIVE (NEGATIVE); PROPOXYPHENE STAT NEGATIVE (NEGATIVE); TRICYCLIC ANTIDEPRESSANTS SCRE NEGATIVE (NEGATIVE)
[2018-12-04] MEDS ORDERED: POTA-51 PO (20:00)
[2018-12-04] MEDS ORDERED: CEFD300C3 PO (20:00)
[2018-12-04] MEDS ORDERED: KCL 20 MEQ TAB (K-DUR) PO ONE (20:15)
[2018-12-04 20:19] VITALS: BP 108/84
[2018-12-04] MEDS ORDERED: RX-CEFDINIR 300 MG CAP PPK #2 PO SCH (21:00)
== END 2018-12-04 20:19 | disposition home or self-care (01) ==
LOC: EDUNIT# 14:07 → ER 14:08
DX: E87.6 Hypokalemia (principal); N39.0 Urinary tract infection, site not specified; F03.90 Unspecified dementia, unspecified severity, without behavioral disturbance, psychotic disturbance, mood disturbance, and anxiety; F41.9 Anxiety disorder, unspecified; G47.00 Insomnia, unspecified; K58.9 Irritable bowel syndrome, unspecified; Z87.891 Personal history of nicotine dependence; Z87.442 Personal history of urinary calculi; Z80.0 Family history of malignant neoplasm of digestive organs
CPT/HCPCS: 36415; 70450; 80053; 80306; 80320; 80329; 81000; 84443; 85025; 87088; 93005

== ENCOUNTER 2019-09-29 07:47 | Emergency (ER) | payer MEDICARE, OTHER ==
[~2019-09-29] VITALS: Ht 167 cm; Wt 81.6 kg
[~2019-09-29 07:47] MED LIST changes: +CEFD300C3 PO; -MAGN400T6 PO; +MAGN400T8 PO; -MEMA10TA22 PO; +MEMA10TA57 PO; +POTA-51 PO; -TAMS0.4C98 PO; +TMSL.4C PO
--- NOTE | 2019-09-29 08:11 | NUR ---
vitals and hx obtained in triage room due to lack of clean beds. pt alert and oriented x3 98.3 pulse 76 RR 20 B/P 126/81 O2 96% Pain 10/10 in "female parts"
[2019-09-29] MEDS ORDERED: KETOROLAC 30 MG/ML VIAL IVP ONE (08:45)
[2019-09-29] MEDS ORDERED: FAMOTIDINE 20MG/2ML IV (PEPCID) IV STA (08:45)
[2019-09-29] MEDS ORDERED: LACTATED RINGERS 1,000 ML IV STA (08:45)
--- NOTE | 2019-09-29 08:45 | ED GI ---
General Chief Complaint: Abdominal/GI Problems Stated Complaint: DIARRHEA Nursing Triage Note: Pt reports diarrhea "constantly" for 1 week. Pt denies vomiting. States the pain is in her "female parts". Sepsis Screen: No Definite Risk History of Present Illness Date Seen by Provider: Sep 29, 2019 Time Seen by Provider: 08:45 Initial Comments 69-year-old female presents with diarrhea. She reports she's had diarrhea on and off for a couple weeks. That she's had a "constantly for the last 1 week. Patient reports she is nauseated but denies vomiting. She denies any fevers or chills. She reports that she has burning down in her peritoneum from be in inflamed from the diarrhea. Patient denies fevers or chills. She has some diffuse abdominal cramping and discomfort. Patient is very irritable and provides no other information Allergies and Home Medications Allergies Coded Allergies: No Known Drug Allergies (Verified , 09/29/19) Home Medications Buspirone HCl 15 Mg Tablet, 15 MG PO BID Prescribed by: DIPIKA SUMMERS on 10/09/17 1350 Cefdinir 300 Mg Capsule, 300 MG PO BID Prescribed by: MARIE BARAHONA on 12/04/181999 Levofloxacin 500 Mg Tablet, 500 MG PO DAILY Prescribed by: DIPIKA SUMMERS on 10/09/17 1407 Mirtazapine 15 Mg Tablet, 22.5 MG PO HS, (Reported) TAKES 1 & 1/2 (15MG) TABLET Pantoprazole Sodium 40 Mg Tablet.dr, 40 MG PO DAILY PRN for HEARTBURN, (Repor yumi) Potassium Chloride 20 Meq Tablet.er, 20 MEQ PO BID Prescribed by: MARIE BARAHONA on 12/04/181999 Patient Home Medication List Home Medication List Reviewed: Yes Review of Systems Review of Systems Constitutional: No chills, No fever, No malaise EENTM: No Symptoms Reported Respiratory: No Symptoms Reported Gastrointestinal: Abdominal Pain, Diarrhea, Nausea; Denies Vomiting Genitourinary: See HPI Musculoskeletal: no symptoms reported Skin: see HPI Psychiatric/Neurological: No Symptoms Reported Endocrine: No Symptoms Reported Past Gmckpev-Kcjypf-Soawmj Hx Past Med/Social Hx: Reviewed Nursing Past Med/Soc Hx Patient Social History Alcohol Beverage of Choice: Wine Type Used: Cigarettes Former Smoker, Quit: Jan 02, 1975 2nd Hand Smoke Exposure: No Recent Foreign Travel: No Contact w/Someone Who Travel: No Recent Infectious Disease Expo: No Recent Hopitalizations: No Immunizations Up To Date Tetanus Booster (TDap): Unknown Date of Pneumonia Vaccine: Oct 11, 2013 Date of Influenza Vaccine: Jan 13, 2016 Seasonal Allergies Seasonal Allergies: No Past Medical History Surgeries: Yes (HIATAL HERNIA, EGD, COLONOSCOPY, BREAT BIOPSY X2) Abdominal, Bladder Surgery, Breast, Gallbladder, Renal Respiratory: No Currently Using CPAP: No Currently Using BIPAP: No Cardiac: No Neurological: Yes (SLEEP PROBLEMS/RESTLESS, POSS DEMENTIA) Dementia Reproductive Disorders: No 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 Sexually Transmitted Disease: No HIV/AIDS: No Genitourinary: Yes Bladder Infection, Kidney Stones Gastrointestinal: Yes (CHRONIC ABDOMINAL PAIN) Chronic Constipation, Chronic Diarrhea, Irritable Bowel Musculoskeletal: No Endocrine: No Cataract Loss of Vision: Denies Hearing Impairment: Denies Cancer: No Psychosocial: Yes Anxiety Integumentary: No Blood Disorders: No Adverse Reaction/Blood Tranf: No (N/A) Family Medical History Cancer 19 MOTHER, Onset:Unknown Cancer of colon 19 FATHER No Pertinent Family Hx Physical Exam Vital Signs Vital Signs - First Documented 09/29/19 07:59 Temp 36.8 Pulse 76 Resp 20 B/P (MAP) 126/81 (96) Pulse Ox 96 O2 Delivery Room Air Capillary Refill : Less Than 3 Seconds Height/Weight/BMI Height: 5'6.00" Weight: 170lbs. 0oz. 77.457906xb; 29.00 BMI Method:Actual General Appearance: no apparent distress, other (very irritable and angry) Respiratory: lungs clear, normal breath sounds Cardiovascular: regular rate, rhythm, no edema Gastrointestinal: soft, tenderness (diffuse) Extremities: normal range of motion, non-tender Back: normal inspection Neurologic/Psychiatric: no motor/sensory deficits, alert Progress/Results/Core Measures Results/Orders Lab Results Laboratory Tests Test 09/29/19 09:31 Range/Units White Blood Count 8.9 4.3-11.0 10^3/uL Red Blood Count 4.40 4.35-5.85 10^6/uL Hemoglobin 9.5 L 11.5-16.0 G/DL Hematocrit 32 L 35-52 % Mean Corpuscular Volume 72 L 80-99 FL Mean Corpuscular Hemoglobin 22 L 25-34 PG Mean Corpuscular Hemoglobin Concent 30 L 32-36 G/DL Red Cell Distribution Width 16.4 H 10.0-14.5 % Platelet Count 504 H 130-400 10^3/uL Mean Platelet Volume 9.8 7.4-10.4 FL Neutrophils (%) (Auto) 70 42-75 % Lymphocytes (%) (Auto) 20 12-44 % Monocytes (%) (Auto) 7 0-12 % Eosinophils (%) (Auto) 3 0-10 % Basophils (%) (Auto) 0 0-10 % Neutrophils # (Auto) 6.3 1.8-7.8 X 10^3 Lymphocytes # (Auto) 1.8 1.0-4.0 X 10^3 Monocytes # (Auto) 0.6 0.0-1.0 X 10^3 Eosinophils # (Auto) 0.3 0.0-0.3 10^3/uL Basophils # (Auto) 0.0 0.0-0.1 10^3/uL Sodium Level 139 135-145 MMOL/L Potassium Level 4.1 3.6-5.0 MMOL/L Chloride Level 102 98-107 MMOL/L Carbon Dioxide Level 28 21-32 MMOL/L Anion Gap 9 5-14 MMOL/L Blood Urea Nitrogen 12 7-18 MG/DL Creatinine 0.78 0.60-1.30 MG/DL Estimat Glomerular Filtration Rate > 60 BUN/Creatinine Ratio 15 Glucose Level 101 70-105 MG/DL Calcium Level 9.7 8.5-10.1 MG/DL Corrected Calcium 9.5 8.5-10.1 MG/DL Total Bilirubin 0.3 0.1-1.0 MG/DL Aspartate Amino Transf (AST/SGOT) 19 5-34 U/L Alanine Aminotransferase (ALT/SGPT) 27 0-55 U/L Alkaline Phosphatase 93 40-136 U/L Total Protein 7.3 6.4-8.2 GM/DL Albumin 4.2 3.2-4.5 GM/DL Lipase 48 8-78 U/L My Orders Orders - ODILON STAFFORD DO Comprehensive Metabolic Panel (09/29/19 08:45) Lipase (09/29/19 08:45) Ua Culture If Indicated (09/29/19 08:45) Acute Abd Series (09/29/19 08:45) Cbc With Automated Diff (09/29/19 08:45) Ketorolac Injection (Toradol Injection) (09/29/19 08:45) Lactated Ringers (Lr 1000 Ml Iv Solution (09/29/19 08:45) Famotidine Injection (Pepcid Injection) (09/29/19 08:45) Ed Iv/Invasive Line Start (09/29/19 08:45) Medications Given in ED Current Medications Medications Dose Ordered Sig/Yoni Route Start Time Stop Time Status Last Admin Dose Admin Ketorolac Tromethamine 15 mg ONCE ONCE IVP 09/29/19 08:45 09/29/19 08:47 DC 09/29/19 09:41 15 MG Vital Signs/I&O 09/29/19 07:59 Temp 36.8 Pulse 76 Resp 20 B/P (MAP) 126/81 (96) Pulse Ox 96 O2 Delivery Room Air Blood Pressure Mean: 96 Progress Progress Note : Time: 11:16 Progress Note I reviewed labs and x-ray with patient. Patient's abdominal cramping and diarrhea is likely due to fecal load in her or her rectum. Patient was offered both a rectal exam and an enema. She declined both. She did have concerns for c olon cancer due to a family history colon cancer. I discussed with her that she would need a colonoscopy and highly recommended she follow up with a general surgeon. At this time she declined any referral. Patient at this time request be discharged home where she will try MiraLAX in a home enema. She should return to the ER as needed or follow-up with her primary care provider and a general surgeon. Diagnostic Imaging Diagonstic Imaging: Xray Plain Films/CT/US/NM/MRI: abdomen Comments [facility]. [place], [place] NAME: TOPHER LOPEZ [facility] REC#: [id number] PT STATUS: REG ER : 1950 PHYSICIAN: ODILON STAFFORD DO ADMIT DATE: 09/29/19/ER Draft Date of Exam:09/29/19 ACUTE ABD SERIES INDICATION: Several week history of abdominal pain TECHNIQUE: Single view chest with supine and upright radiographs of the abdomen. CORRELATION STUDY: Chest 10/07/2017 FINDINGS: Given depth of inspiration, heart size and vasculature within normal limits. Tortuous course thoracic aorta Lung solorio are clear. Surgical clips project over the lower mid chest with likely probable hiatal hernia. Supine and upright radiographs of the abdomen demonstrates scattered gas-filled loops of bowel to be present. No air-fluid levels or findings to suggest high degree bowel obstruction. Mild severity fecal retention. Distal colonic fecal loading. No free air is seen under the diaphragms. No pathologic intraabdominal calcifications. IMPRESSION: 1. Negative for acute cardiopulmonary abnormality. 2. Unremarkable appearing bowel gas pattern. Mild severity fecal retention. Reviewed: Reviewed by Me, Reviewed/Discussed Departure Impression Primary Impression: Constipation Qualified Codes: K59.00 - Constipation, unspecified Additional Impression: Overflow diarrhea Disposition: HOME, SELF-CARE Condition: Stable Departure-Patient Inst. Referrals: RICARDO SRIVASTAVA DO (PCP/Family) Primary Care Physician Patient Instructions: Constipation in Adults, Dealing with Constipation from the Drugs You Take Add. Discharge Instructions: MiraLAX 3-4 times a day until daily soft stool Follow-up with your primary care provider in 2-3 days Emergency department focuses on treating and ruling out life-threatening diseases. Whenever possible, a diagnosis is given. However, most patients are given an impression based on their history, physical exam, and workup during your brief time in the ER. Information about probable diagnosis and other educational material has been provided. Please take the time to read and understand this information. It is very important that you follow up with a physician as discussed during the visit today. Failure to adhere to your follow-up instructions may lead to severe disability, injury, or so please make sure to keep your appointments or obtain one as requested. Please keep in mind the emergency department is not designed to your primary care or "family doctor" and nonurgent issues are best evaluated by an outpatient physician All discharge instructions reviewed with patient and/or family. Voiced understanding. ODILON STAFFORD DO Sep 29, 2019 08:45
[2019-09-29 09:37] LABS: BASOPHILS % (AUTO) 0 % (0-10); EOSINOPHILS # (AUTO) 0.3 10^3/uL (0.0-0.3); EOSINOPHILS % (AUTO) 3 % (0-10); HEMATOCRIT 32 % (35-52); HEMOGLOBIN 9.5 G/DL (11.5-16.0); LYMPHOCYTES # (AUTO) 1.8 X 10^3 (1.0-4.0); LYMPHOCYTES % (AUTO) 20 % (12-44); MEAN CORPUSCULAR HEMOGLOBIN 22 PG (25-34); MEAN CORPUSCULAR HGB CONC 30 G/DL (32-36); MEAN CORPUSCULAR VOLUME 72 FL (80-99); MEAN PLATELET VOLUME 9.8 FL (7.4-10.4); MONOCYTES # (AUTO) 0.6 X 10^3 (0.0-1.0); MONOCYTES % (AUTO) 7 % (0-12); NEUTROPHILS # (AUTO) 6.3 X 10^3 (1.8-7.8); NEUTROPHILS % (AUTO) 70 % (42-75); PLATELET COUNT 504 10^3/uL (130-400); RED CELL DISTRIBUTION WIDTH 16.4 % (10.0-14.5); WHITE BLOOD COUNT 8.9 10^3/uL (4.3-11.0)
[2019-09-29 09:49] LABS: ALBUMIN 4.2 GM/DL (3.2-4.5); CHLORIDE 102 MMOL/L (98-107); POTASSIUM 4.1 MMOL/L (3.6-5.0); SODIUM 139 MMOL/L (135-145)
[2019-09-29 09:50] LABS: CALCIUM 9.7 MG/DL (8.5-10.1)
[2019-09-29 09:51] LABS: GLUCOSE 101 MG/DL (70-105)
[2019-09-29 09:52] LABS: TOTAL PROTEIN 7.3 GM/DL (6.4-8.2)
[2019-09-29 09:53] LABS: BILIRUBIN,TOTAL 0.3 MG/DL (0.1-1.0); CARBON DIOXIDE 28 MMOL/L (21-32)
[2019-09-29 09:55] LABS: ALKALINE PHOSPHATASE 93 U/L (40-136); CREATININE SERUM 0.78 MG/DL (0.60-1.30); GFR ESTIMATED > 60
[2019-09-29 09:56] LABS: BUN/CREATININE RATIO 15
[2019-09-29 09:58] LABS: ALANINE AMINOTRANSFERASE 27 U/L (0-55); LIPASE 48 U/L (8-78)
--- NOTE | 2019-09-29 10:20 | Diagnostic Imaging Report ---
INDICATION: Several week history of abdominal pain TECHNIQUE: Single view chest with supine and upright radiographs of the abdomen. CORRELATION STUDY: Chest 10/07/2017 FINDINGS: Given depth of inspiration, heart size and vasculature within normal limits. Tortuous course thoracic aorta Lung solorio are clear. Surgical clips project over the lower mid chest with likely probable hiatal hernia. Supine and upright radiographs of the abdomen demonstrates scattered gas-filled loops of bowel to be present. No air-fluid levels or findings to suggest high degree bowel obstruction. Mild severity fecal retention. Distal colonic fecal loading. No free air is seen under the diaphragms. No pathologic intraabdominal calcifications. IMPRESSION: 1. Negative for acute cardiopulmonary abnormality. 2. Unremarkable appearing bowel gas pattern. Mild severity fecal retention. Dictated by: Dictated on workstation # [id number]
[2019-09-29 11:32] VITALS: BP 126/82
== END 2019-09-29 11:32 | disposition home or self-care (01) ==
LOC: EDUNIT# 07:47 → ER 07:50
DX: K59.00 Constipation, unspecified (principal); R19.7 Diarrhea, unspecified; F41.9 Anxiety disorder, unspecified; Z87.891 Personal history of nicotine dependence; Z80.0 Family history of malignant neoplasm of digestive organs
CPT/HCPCS: 36415; 74022; 80053; 83690; 85025

== ENCOUNTER 2021-11-14 08:42 | Emergency (ER) | payer MEDICARE, OTHER ==
[~2021-11-14] VITALS: Ht 165.1 cm; Wt 81.6 kg
[~2021-11-14 08:42] MED LIST changes: -CYAN100T3 PO; +CYAN100T37 PO; +DICY20TA PO; -DICY20TA10 PO; -MAGN400T8 PO; +MGX400T PO; +MIRT-68 PO; +MIRT-69 PO; -MIRT15TA6 PO; -MIRT30TA6 PO; -PANT40TA3 PO; +PANT40TA52 PO; -SULF1TAB35 PO; +SULF1TAB38 PO
[2021-11-14] MEDS ORDERED: NS IV 500 ML 500 ML IV ONE (09:00)
[2021-11-14] MEDS ORDERED: ACETAMINOPHEN 500 MG TAB (TYLENOL) PO PRN (09:00)
[2021-11-14] MEDS ORDERED: NS IV 1000 ML 1,000 ML IV SCH (09:00)
[2021-11-14] MEDS ORDERED: CEFEPIME INJECTION 1,000 MG in NS (IVPB) 50 ML IV ONE (09:00)
[2021-11-14] MEDS ORDERED: VANCOMYCIN INJECTION 1,750 MG in NS IV 500 ML 500 ML IV ONE (09:00)
[2021-11-14] MEDS ORDERED: ONDANSETRON 4 MG/2 ML (SDV) Z0FRAN IV PRN (09:00)
[2021-11-14 09:06] LABS: BASOPHILS % (AUTO) 1 % (0-10); EOSINOPHILS % (AUTO) 1 % (0-10); HEMATOCRIT 37 % (35-52); LYMPHOCYTES # (AUTO) 0.9 10^3/uL (1.0-4.0); LYMPHOCYTES % (AUTO) 14 % (12-44); MEAN CORPUSCULAR HEMOGLOBIN 28 pg (25-34); MEAN CORPUSCULAR HGB CONC 32 g/dL (32-36); MEAN CORPUSCULAR VOLUME 86 fL (80-99); MEAN PLATELET VOLUME 10.2 fL (9.0-12.2); MONOCYTES # (AUTO) 0.7 10^3/uL (0.0-1.0); MONOCYTES % (AUTO) 11 % (0-12); NEUTROPHILS # (AUTO) 4.7 10^3/uL (1.8-7.8); NEUTROPHILS % (AUTO) 73 % (42-75); PLATELET COUNT 399 10^3/uL (130-400); WHITE BLOOD COUNT 6.4 10^3/uL (4.3-11.0)
[2021-11-14 09:24] LABS: ALBUMIN 3.6 GM/DL (3.2-4.5)
[2021-11-14 09:25] LABS: POTASSIUM 3.2 MMOL/L (3.6-5.0)
[2021-11-14 09:26] LABS: CALCIUM 9.2 MG/DL (8.5-10.1)
[2021-11-14 09:27] LABS: TOTAL PROTEIN 6.8 GM/DL (6.4-8.2)
[2021-11-14 09:29] LABS: BILIRUBIN,TOTAL 0.4 MG/DL (0.1-1.0)
[2021-11-14 09:31] LABS: CREATININE SERUM 0.72 MG/DL (0.60-1.30)
[2021-11-14 09:33] LABS: MAGNESIUM 1.8 MG/DL (1.6-2.4)
[2021-11-14 09:45] LABS: FIBRIN DEGRADATION PRODUCTS 0.56 UG/ML (0.00-0.49); INR 1.1 (0.8-1.4); PROTHROMBIN TIME PATIENT 14.4 SEC (12.2-14.7)
--- NOTE | 2021-11-14 09:58 | ED General ---
General Chief Complaint: General Problems/Pain Stated Complaint: FACIAL SWELLING,N/V Nursing Triage Note: arrives via ems to room 9 with a c/o vomitiing x1, with nausea fever and left sided facial sweling. from [facility] in [place].patient has hx of dementia and seems anxious, patient reassured and told we will bring her back as soon as he arrives. Source of Information: Patient Exam Limitations: No Limitations History of Present Illness Date Seen by Provider: Nov 14, 2021 Time Seen by Provider: 08:50 Initial Comments Patient to the ER from [facility] and [place] with chief complaint of vomiting this morning, and a fever of 100.2 per EMS. She has a history of dementia and anxiety. Her accompanies her. No known sick contacts. Symptoms started this morning. She has had at least 2 doses of COVID-vaccine. She denies shortness of breath cough diarrhea constipation or pain. She is on Augmentin for a UTI outpatient. Allergies and Home Medications Allergies Coded Allergies: No Known Drug Allergies (Verified , 09/29/19) Patient Home Medication List Home Medication List Reviewed: Yes Buspirone HCl (Buspirone HCl) 15 Mg Tablet, 15 MG PO BID Prescribed by: DIPIKA SUMMERS on 10/09/17 1350 Cefdinir (Cefdinir) 300 Mg Capsule, 300 MG PO BID Prescribed by: MARIE BARAHONA on 12/04/181999 Dexamethasone (Decadron) 6 Mg Tablet, 6 MG PO DAILY Prescribed by: ADRIAN FORTUNE on 11/14/21 1020 Levofloxacin (Levaquin) 500 Mg Tablet, 500 MG PO DAILY Prescribed by: DIPIKA SUMMERS on 10/09/17 1407 Mirtazapine (Mirtazapine) 15 Mg Tablet, 22.5 MG PO HS, (Reported) Entered as Reported by: JANE SUN on 10/07/17 1220 Ondansetron (Ondansetron Odt) 4 Mg Tab.rapdis, 4 MG PO Q6H PRN for NAUSEA/VOMITING Prescribed by: ADRIAN FORTUNE on 11/14/21 1020 Pantoprazole Sodium (Pantoprazole Sodium) 40 Mg Tablet.dr, 40 MG PO DAILY PRN for HEARTBURN, (Reported) Entered as Reported by: JANE SUN on 10/07/17 1220 Potassium Chloride (Potassium Chloride) 20 Meq Tablet.er, 20 MEQ PO BID Prescribed by: MARIE BARAHONA on 12/04/181999 [oxygen concentrator] , L NA DAILY PRN for AIR HUNGER, (DME) Prescribed by: ADRIAN FORTUNE on 11/14/21 1053 Review of Systems Review of Systems Constitutional: No chills, No diaphoresis EENTM: No ear discharge, No hearing loss, No ear pain Respiratory: No cough, No short of breath Cardiovascular: No chest pain, No edema Gastrointestinal: see HPI; No abdominal pain, No constipation, No diarrhea; nausea, vomiting Genitourinary: No discharge, No dysuria Musculoskeletal: No back pain, No joint pain All Other Systems Reviewed Negative Unless Noted: Yes Past Rczhapc-Jmynhp-Ruonqv Hx Patient Social History Tobacco Use?: No Use of E-Cig and/or Vaping dev: No Substance use?: No Alcohol Use?: No Pt feels they are or have been: No Immunizations Up To Date Tetanus Booster (TDap): Unknown First/Initial COVID19 Vaccinat: 06/21/20 Second COVID19 Vaccination Ritesh: 07/20/20 Third COVID19 Vaccination Date: 02/27/21 Seasonal Allergies Seasonal Allergies: No Past Medical History Surgeries: Yes (HIATAL HERNIA, EGD, COLONOSCOPY, BREAT BIOPSY X2) Abdominal, Bladder Surgery, Breast, Gallbladder, Renal Respiratory: No Currently Using CPAP: No Currently Using BIPAP: No Cardiac: No Neurological: Yes (SLEEP PROBLEMS/RESTLESS, POSS DEMENTIA) Dementia Reproductive Disorders: No 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 Disorders: Denies SPINNER OPEN END History: Menopausal Sexually Transmitted Disease: No HIV/AIDS: No Genitourinary: Yes Bladder Infection, Kidney Stones Gastrointestinal: Yes (CHRONIC ABDOMINAL PAIN) Chronic Constipation, Chronic Diarrhea, Irritable Bowel Musculoskeletal: No Endocrine: No Cataract Loss of Vision: Denies Hearing Impairment: Denies Cancer: No Psychosocial: Yes Anxiety Integumentary: No Blood Disorders: No Adverse Reaction/Blood Tranf: No (N/A) Family Medical History Cancer 19 MOTHER, Onset:Unknown Cancer of colon 19 FATHER No Pertinent Family Hx Physical Exam-Suspected Sepsis Physical Exam Vital Signs Vital Signs - First Documented 11/14/21 08:45 Temp 37.3 Pulse 77 Resp 20 B/P (MAP) 105/88 (94) Pulse Ox 92 O2 Delivery Room Air Capillary Refill : Less Than 3 Seconds Blood Pressure Mean: 94 Height, Weight, BMI Height: 5'6.00" Weight: 170lbs. 0oz. 77.870343hc; 29.00 BMI Method:Actual General Appearance: WD/WN, Anxious Eyes: Bilateral Eye Normal Inspection, Bilateral Eye PERRL, Bilateral Eye EOMI HEENT: PERRL/EOMI, TMs Normal, Normal ENT Inspection; No Moist Mucous Membranes (Mildly dry oral mucosa), No Pharyngeal Erythema, No Tonsillar Exudate, No Tonsillar Enlargement; Other (No facial asymmetry) Neck: Full Range of Motion, Normal Inspection, Non Tender, Supple Respiratory: Lungs Clear, Normal Breath Sounds, No Accessory Muscle Use, No Respiratory Distress Cardiovascular: Regular Rate, Rhythm, No Edema, Normal Peripheral Pulses Gastrointestinal: Normal Bowel Sounds, No Organomegaly, Non Tender, Soft Extremity: Normal Capillary Refill, Normal Inspection, Non Tender Neurologic/Psychiatric: Alert, Other (Oriented to person.) Skin: normal color, warm/dry Focused Exam Lactate Level 11/14/21 08:55: Lactic Acid Level 0.72 Lactic Acid Level Progress/Results/Core Measures Suspected Sepsis Recent Fever Within 48 Hours: Yes Infection Criteria Present: Suspected New Infection New/Unexplained Altered Menta: No SIRS Temperature: Pulse: 77 Respiratory Rate: 20 Laboratory Tests 11/14/21 08:55: White Blood Count 6.4 Blood Pressure 105 /88 Mean: 94 11/14/21 08:55: Lactic Acid Level 0.72 Laboratory Tests 11/14/21 08:55: Creatinine 0.72, INR Comment 1.1, Platelet Count 399, Total Bilirubin 0.4 Results/Orders Lab Results Laboratory Tests Test 11/14/21 08:55 11/14/21 08:57 11/14/21 09:26 11/14/21 09:58 Range/Units White Blood Count 6.4 4.3-11.0 10^3/uL Red Blood Count 4.30 3.80-5.11 10^6/uL Hemoglobin 12.0 11.5-16.0 g/dL Hematocrit 37 35-52 % Mean Corpuscular Volume 86 80-99 fL Mean Corpuscular Hemoglobin 28 25-34 pg Mean Corpuscular Hemoglobin Concent 32 32-36 g/dL Red Cell Distribution Width 13.4 10.0-14.5 % Platelet Count 399 130-400 10^3/uL Mean Platelet Volume 10.2 9.0-12.2 fL Immature Granulocyte % (Auto) 0 % Neutrophils (%) (Auto) 73 42-75 % Lymphocytes (%) (Auto) 14 12-44 % Monocytes (%) (Auto) 11 0-12 % Eosinophils (%) (Auto) 1 0-10 % Basophils (%) (Auto) 1 0-10 % Neutrophils # (Auto) 4.7 1.8-7.8 10^3/uL Lymphocytes # (Auto) 0.9 L 1.0-4.0 10^3/uL Monocytes # (Auto) 0.7 0.0-1.0 10^3/uL Eosinophils # (Auto) 0.0 0.0-0.3 10^3/uL Basophils # (Auto) 0.0 0.0-0.1 10^3/uL Immature Granulocyte # (Auto) 0.0 0.0-0.1 10^3/uL Prothrombin Time 14.4 12.2-14.7 SEC INR Comment 1.1 0.8-1.4 Activated Partial Thromboplast Time 30 24-35 SEC D-Dimer 0.56 H 0.00-0.49 UG/ML Sodium Level 138 135-145 MMOL/L Potassium Level 3.2 L 3.6-5.0 MMOL/L Chloride Level 102 98-107 MMOL/L Carbon Dioxide Level 27 21-32 MMOL/L Anion Gap 9 5-14 MMOL/L Blood Urea Nitrogen 9 7-18 MG/DL Creatinine 0.72 0.60-1.30 MG/DL Estimat Glomerular Filtration Rate 88 BUN/Creatinine Ratio 13 Glucose Level 100 70-105 MG/DL Lactic Acid Level 0.72 0.50-2.00 MMOL/L Calcium Level 9.2 8.5-10.1 MG/DL Corrected Calcium 9.5 8.5-10.1 MG/DL Magnesium Level 1.8 1.6-2.4 MG/DL Total Bilirubin 0.4 0.1-1.0 MG/DL Aspartate Amino Transf (AST/SGOT) 15 5-34 U/L Alanine Aminotransferase (ALT/SGPT) 15 0-55 U/L Alkaline Phosphatase 76 40-136 U/L Total Protein 6.8 6.4-8.2 GM/DL Albumin 3.6 3.2-4.5 GM/DL Procalcitonin 0.07 <0.10 NG/ML Influenza Type A (RT-PCR) Not Detected Not Detecte Influenza Type B (RT-PCR) Not Detected Not Detecte SARS-CoV-2 RNA (RT-PCR) Detected H Not Detecte Bedside Blood Gas pH (LAB) 7.430 H 7.310-7.410 Bedside Blood Gas pCO2 (LAB) 41.2 41.0-51.0 mmHg Bedside Blood Gas pO2 (LAB) 106 H 80-105 mmHg Bedside Blood Gas HCO3 (LAB) 27.3 23.0-28.0 mmol/L POC Blood Gas Total CO2 Calc 29 24-29 mmol/L Bedside Bl Gas O2 Saturation (Calc) 98 95-98 % Bedside Arterial Blood Base Excess 3 -2-3 mmol/L Urine Color YELLOW Urine Clarity CLEAR Urine pH 6.5 5-9 Urine Specific Industry 1.015 L 1.016-1.022 Urine Protein TRACE H NEGATIVE Urine Glucose (UA) NEGATIVE NEGATIVE Urine Ketones NEGATIVE NEGATIVE Urine Nitrite NEGATIVE NEGATIVE Urine Bilirubin NEGATIVE NEGATIVE Urine Urobilinogen 0.2 < = 1.0 MG/DL Urine Leukocyte Esterase 2+ H NEGATIVE Urine RBC (Auto) 2+ H NEGATIVE Urine RBC 2-5 H /HPF Urine WBC 25-50 H /HPF Urine Squamous Epithelial Cells >50 H /HPF Urine Crystals PRESENT H /LPF Urine Calcium Oxalate Crystals RARE H /LPF Urine Bacteria MODERATE H /HPF Urine Casts NONE /LPF Urine Mucus MODERATE H /LPF Urine Culture Indicated CULTURE PENDING My Orders Orders - ADRIAN FORTUNE Cbc With Automated Diff (11/14/21 08:55) Comprehensive Metabolic Panel (11/14/21 08:55) Blood Culture (11/14/21 08:55) Urinalysis (11/14/21 08:55) Urine Culture (11/14/21 08:55) Protime With Inr (11/14/21 08:55) Partial Thromboplastin Time (11/14/21 08:55) Chest 1 View, Ap/Pa Only (11/14/21 08:55) Acetaminophen Tablet (Tylenol Tablet) (11/14/21 09:00) Ed Iv/Invasive Line Start (11/14/21 08:55) Ed Iv/Invasive Line Start (11/14/21 08:55) Vital Signs Adult Sepsis Patie Q15M (8/3/22 08:55) Ondansetron Injection (Zofran Injectio (11/14/21 09:00) O2 (11/14/21 08:55) Remove Rings In Anticipation O (11/14/21 08:55) Lactic Acid Analyzer (11/14/21 08:55) Influenza A And B By Pcr (11/14/21 08:55) Ns Iv 1000 Ml (Sodium Chloride 0.9%) (11/14/21 09:00) Cefepime Injection (Maxipime Injection) (11/14/21 09:00) Vancomycin Injection (Vancomycin Injecti (11/14/21 09:00) Covid 19 Inhouse Test (11/14/21 08:55) Ed Iv/Invasive Line Start (11/14/21 08:55) Ns Iv 500 Ml (Sodium Chloride 0.9%) (11/14/21 09:00) Magnesium (11/14/21 08:55) Procalcitonin (Pct) (11/14/21 08:55) Fibrin Degradation Products (11/14/21 08:55) Dexamethasone Injection (Decadron Inje (11/14/21 09:58) Medications Given in ED Current Medications Medications Dose Ordered Sig/Yoni Route Start Time Stop Time Status Last Admin Dose Admin Acetaminophen 1,000 mg ONCE PRN PO 11/14/21 09:00 11/14/21 10:13 DC 11/14/21 10:13 1,000 MG Cefepime HCl 1000 mg/Sodium Chloride 50 ml @ 100 mls/hr ONCE ONCE IV 11/14/21 09:00 11/14/21 09:29 DC 11/14/21 10:12 100 MLS/HR Ondansetron HCl 4 mg PRN PRN IV 11/14/21 09:00 11/14/21 10:13 DC 11/14/21 10:12 4 MG Sodium Chloride 500 ml @ 0 mls/hr Q0M ONCE IV 11/14/21 09:00 11/14/21 09:01 DC 11/14/21 10:12 500 MLS/HR Vancomycin HCl 1750 mg/Sodium Chloride 500 ml @ 258 mls/hr ONCE ONCE IV 11/14/21 09:00 11/14/21 10:56 DC 11/14/21 11:14 258 MLS/HR Vital Signs/I&O 11/14/21 11/14/21 11/14/21 11/14/21 08:45 08:55 08:55 10:13 Temp 37.3 37.3 37.3 Pulse 77 77 Resp 20 20 B/P (MAP) 105/88 (94) 105/88 Pulse Ox 92 92 92 O2 Delivery Room Air Nasal Cannula Nasal Cannula O2 Flow Rate 2.00 2.00 Capillary Refill : Less Than 3 Seconds Blood Pressure Mean: 94 Progress Note : Time: 09:55 Progress Note Highly anxious patient who is calm and by the presence of her . She has COVID. Her vital signs demonstrate some hypoxemia oxygen saturations 88 to 89% and no tachycardia. She is not on supplemental oxygen at baseline but we put her on 2 L by nasal cannula and this brought her oxygen sats up. An ABG has been obtained which demonstrated a relative respiratory alkalosis although it is corrected on 2 to 3 L of oxygen. Ondansetron for her nausea. Decadron 6 mg IV. We did discuss an observation stay versus going home and both she and her are okay with going home. We will set her up on Decadron and home oxygen. Diagnostic Imaging Diagonstic Imaging: Xray Plain Films/CT/US/NM/MRI: chest Comments [facility] [place] NAME: TOPHER LOPEZ [facility] REC#: [id number] PT STATUS: DEP ER : [id number] PHYSICIAN: ADRIAN FORTUNE MD ADMIT DATE: 11/14/21/ER Signed Date of Exam:11/14/21 CHEST 1 VIEW, AP/PA ONLY Indication: Sepsis. Time of Exam: 11:11 AM Correlation is made with prior chest from 06/03/2017. Heart is enlarged. Lungs are clear. No infiltrate or failure is seen. No effusion or pneumothorax. IMPRESSION: Cardiomegaly. No other significant abnormality is detected. Dictated by: Dictated on workstation # [id number] Dict: 11/14/21 1128 Trans: 11/14/21 1616 [facility] [id number] Interpreted by: RYAN GARCIA MD Electronically signed by: RYAN GARCIA MD 11/14/21 1616 Reviewed: Reviewed by Me Departure Impression Primary Impression: COVID-19 Additional Impression: Acute hypoxemic respiratory failure due to COVID-19 Disposition: 01 HOME, SELF-CARE Condition: Stable Departure-Patient Inst. Decision time for Depature: 10:17 Referrals: RICARDO SRIVASTAVA DO (PCP/Family) Primary Care Physician Patient Instructions: COVID-19 After You Have Been Vaccinated, Prone Position Add. Discharge Instructions: Drink plenty of fluids, get rest but stay active around the house. Wear your oxygen especially to sleep 2 to 6 L as necessary to keep your oxygen saturations above 90% while at rest. If you cannot maintain oxygen saturations above 90% despite oxygen then please return to the ER. Ondansetron 1 tablet every 6 hours as needed for nausea and/or vomiting. Decadron 6 mg daily for 10 days. You may come off isolation 11/21/2021 if you have been fever free for the previous 24 hours. As soon as you get home call [facility] to deliver the oxygen concentrator at [phone]. All discharge instructions reviewed with patient and/or family. Voiced understanding. Scripts [oxygen concentrator] No Conflict Check L NA DAILY PRN for AIR HUNGER, #2 0 Refills 0-6 LPM via NC to keep SpO2 above 90%. Prov: ADRIAN FORTUNE 11/14/21 Dexamethasone (Decadron) 6 Mg Tablet 6 MG PO DAILY for 9 Days, #9 TAB 0 Refills Prov: ADRIAN FORTUNE 11/14/21 Ondansetron (Ondansetron Odt) 4 Mg Tab.rapdis 4 MG PO Q6H PRN for NAUSEA/VOMITING, #12 TAB 0 Refills Prov: ADRIAN FORTUNE 11/14/21 Copy Copies To 1: RICARDO SRIVASTAVA TITUS J Nov 14, 2021 09:58
[2021-11-14 10:13] LABS: BILIRUBIN,URINE NEGATIVE (NEGATIVE); CLARITY,URINE CLEAR; COLOR,URINE YELLOW; GLUCOSE, URINE (UA) NEGATIVE (NEGATIVE); KETONES,URINE NEGATIVE (NEGATIVE); LEUKOCYTE ESTERASE ,URINE 2+ (NEGATIVE); NITRITE,URINE NEGATIVE (NEGATIVE); PH,URINE 6.5 (5-9); PROTEIN,URINE TRACE (NEGATIVE)
[2021-11-14] MEDS ORDERED: ONDA4TAB11 PO (10:20)
[2021-11-14] MEDS ORDERED: DEXA6TAB6 PO (10:20)
[2021-11-14 10:31] LABS: BACTERIA,URINE MODERATE /HPF; SQUAMOUS EPITHELIAL CELL,UR >50 /HPF; WBC,URINE 25-50 /HPF
[2021-11-14 10:32] LABS: CALCIUM OXALATE CRYSTALS,UR RARE /LPF
[2021-11-14] MEDS ORDERED: oxygen concentrator (10:53)
--- NOTE | 2021-11-14 11:32 | Diagnostic Imaging Report ---
Indication: Sepsis. Time of Exam: 11:11 AM Correlation is made with prior chest from 06/03/2017. Heart is enlarged. Lungs are clear. No infiltrate or failure is seen. No effusion or pneumothorax. IMPRESSION: Cardiomegaly. No other significant abnormality is detected. Dictated by: Dictated on workstation # [id number]
[2021-11-14 13:15] VITALS: BP 97/55
== END 2021-11-14 13:27 | disposition home or self-care (01) ==
LOC: EDUNIT# 08:42 → ER 08:43
DX: U07.1 COVID-19 (principal); J96.01 Acute respiratory failure with hypoxia
CPT/HCPCS: 36415; 71045; 80053; 81000; 82805; 83605; 83735; 84145; 85025; 85379; 85610; 85730; 87040; 87088; 87636

== ENCOUNTER 2021-12-12 11:23 | Emergency (ER) | payer MEDICARE, OTHER ==
[~2021-12-12 11:23] MED LIST changes: +DEXA6TAB6 PO; +ONDA4TAB11 PO; +oxygen concentrator
--- NOTE | 2021-12-12 12:14 | ED General ---
General Chief Complaint: General Problems/Pain Stated Complaint: WEIGHT LOSS, NOT EATING, NOT TAKING MEDS History of Present Illness Date Seen by Provider: Dec 12, 2021 Time Seen by Provider: 11:40 Initial Comments 71 year old female brought by her for increased confusion, not eating/drinking, and not taking medications. She just finished Omnicef, 7 day course today. She saw Dr. Srivastava yesterday, no new medications or recommendations. 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 She has been refusing meds at [facility] and at home. She will take some medications, but then spits them out. Her reports she will drink Pepsi but otherwise is limited on her liquid and solid intake. She has dementia, her is concerned it is progressing. She was admitted here in early Nov for COVID and has been weaker since that. Patient answer some questions appropriately but confused at other times. Timing/Duration: Getting Worse, Intermittent Severity: Mild Associated Systoms: No Chest Pain, No Cough, No Diaphoresis, No Fever/Chills, No Headaches; Loss of Appetite; No Malaise, No Nausea/Vomiting, No Rash, No Seizure, No Shortness of Air, No Syncope; Weakness Allergies and Home Medications Allergies Coded Allergies: No Known Drug Allergies (Verified , 09/29/19) Patient Home Medication List Home Medication List Reviewed: Yes Buspirone HCl (Buspirone HCl) 15 Mg Tablet, 15 MG PO BID Prescribed by: DIPIKA SUMMERS on 10/09/17 1350 Cefdinir (Cefdinir) 300 Mg Capsule, 300 MG PO BID Prescribed by: MARIE BARAHONA on 12/04/181999 Dexamethasone (Decadron) 6 Mg Tablet, 6 MG PO DAILY Prescribed by: ADRIAN FORTUNE on 11/14/21 1020 Levofloxacin (Levaquin) 500 Mg Tablet, 500 MG PO DAILY Prescribed by: DIPIKA SUMMERS on 10/09/17 1407 Mirtazapine (Mirtazapine) 15 Mg Tablet, 22.5 MG PO HS, (Reported) Entered as Reported by: JANE SUN on 10/07/17 1220 Ondansetron (Ondansetron Odt) 4 Mg Tab.rapdis, 4 MG PO Q6H PRN for NAUSEA/VOMITING Prescribed by: ADRIAN FORTUNE on 11/14/21 1020 Pantoprazole Sodium (Pantoprazole Sodium) 40 Mg Tablet.dr, 40 MG PO DAILY PRN for HEARTBURN, (Reported) Entered as Reported by: JANE SUN on 10/07/17 1220 Potassium Chloride (Potassium Chloride) 20 Meq Tablet.er, 20 MEQ PO BID Prescribed by: MARIE BARAHONA on 12/04/18 2000 [oxygen concentrator] , L NA DAILY 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 for 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, (DME) Prescribed by: ADRIAN FORTUNE on 11/14/21 1053 Review of Systems Review of Systems Constitutional: see HPI, weakness Respiratory: no symptoms reported, see HPI Gastrointestinal: see HPI, loss of appetite All Other Systems Reviewed Negative Unless Noted: Yes Past Mkgdnnw-Luzxqa-Spppyo Hx Patient Social History Tobacco Use?: No Use of E-Cig and/or Vaping dev: No Substance use?: No Alcohol Use?: No Pt feels they are or have been: No Immunizations Up To Date Tetanus Booster (TDap): Unknown Influenza Vaccine Up-to-Date: Yes; Up-to-Date First/Initial COVID19 Vaccinat: 06/21/20 Second COVID19 Vaccination Ritesh: 07/20/20 Third COVID19 Vaccination Date: 02/27/21 Seasonal Allergies Seasonal Allergies: No Past Medical History Surgery/Hospitalization HX: SCHIZOPHRENIA, DEPRESSION, ANXIETY, DIARRHEA, UTI, Surgeries: Yes (HIATAL HERNIA, EGD, COLONOSCOPY, BREAT BIOPSY X2) Abdominal, Bladder Surgery, Breast, Gallbladder, Renal Respiratory: No Currently Using CPAP: No Currently Using BIPAP: No Cardiac: No Neurological: Yes (SLEEP PROBLEMS/RESTLESS, POSS DEMENTIA) Dementia Reproductive Disorders: No 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 Disorders: Denies 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 Sexually Transmitted Disease: No HIV/AIDS: No Genitourinary: Yes Bladder Infection, Kidney Stones Gastrointestinal: Yes (CHRONIC ABDOMINAL PAIN) Chronic Constipation, Chronic Diarrhea, Irritable Bowel Musculoskeletal: No Endocrine: No Cataract Loss of Vision: Denies Hearing Impairment: Denies Cancer: No Psychosocial: Yes Anxiety Integumentary: No Blood Disorders: No Adverse Reaction/Blood Tranf: No (N/A) Family Medical History Reviewed Nursing Family Hx Cancer 19 MOTHER, Onset:Unknown Cancer of colon 19 FATHER No Pertinent Family Hx Physical Exam Vital Signs Vital Signs - First Documented 12/12/21 11:44 Temp 35.6 Pulse 97 Resp 16 B/P (MAP) 124/81 (95) Capillary Refill : Height, Weight, BMI Height: 5'6.00" Weight: 170lbs. 0oz. 77.843813ml; 29.00 BMI Method:Actual General Appearance: No Apparent Distress, WD/WN Eyes: Bilateral Eye Normal Inspection, Bilateral Eye PERRL, Bilateral Eye EOMI HEENT: PERRL/EOMI, TMs Normal, Normal ENT Inspection, Pharynx Normal Neck: Full Range of Motion, Normal Inspection, Non Tender, Supple Respiratory: Chest Non Tender, Lungs Clear, Normal Breath Sounds Cardiovascular: Regular Rate, Rhythm, No Murmur, Normal Peripheral Pulses Gastrointestinal: Normal Bowel Sounds, Non Tender, Soft Extremity: Normal Capillary Refill, Normal Inspection, Normal Range of Motion, Non Tender Neurologic/Psychiatric: Alert, No Motor/Sensory Deficits, Normal Mood/Affect, Other (oriented to person and place, answered all questions appropriately) Skin: Normal Color, Warm/Dry Progress/Results/Core Measures Suspected Sepsis SIRS Temperature: Pulse: Respiratory Rate: Laboratory Tests 12/12/21 12:19: White Blood Count 8.8 Blood Pressure / Mean: Laboratory Tests 12/12/21 12:19: Creatinine 1.16, Platelet Count 519H, Total Bilirubin 0.5 12/12/21 12:52: INR Comment 1.1 Results/Orders Lab Results Laboratory Tests Test 12/12/21 12:10 12/12/21 12:19 12/12/21 12:52 Range/Units Urine Color YELLOW Urine Clarity CLEAR Urine pH 5.5 5-9 Urine Specific [place] >=1.030 1.016-1.022 Urine Protein 1+ H NEGATIVE Urine Glucose (UA) NEGATIVE NEGATIVE Urine Ketones TRACE H NEGATIVE Urine Nitrite NEGATIVE NEGATIVE Urine Bilirubin NEGATIVE NEGATIVE Urine Urobilinogen 0.2 < = 1.0 MG/DL Urine Leukocyte Esterase 2+ H NEGATIVE Urine RBC (Auto) 2+ H NEGATIVE Urine RBC RARE /HPF Urine WBC 25-50 H /HPF Urine Crystals NONE /LPF Urine Bacteria TRACE /HPF Urine Casts NONE /LPF Urine Mucus SMALL H /LPF Urine Culture Indicated NO White Blood Count 8.8 4.3-11.0 10^3/uL Red Blood Count 5.10 3.80-5.11 10^6/uL Hemoglobin 13.8 11.5-16.0 g/dL Hematocrit 44 35-52 % Mean Corpuscular Volume 85 80-99 fL Mean Corpuscular Hemoglobin 27 25-34 pg Mean Corpuscular Hemoglobin Concent 32 32-36 g/dL Red Cell Distribution Width 13.9 10.0-14.5 % Platelet Count 519 H 130-400 10^3/uL Mean Platelet Volume 10.5 9.0-12.2 fL Immature Granulocyte % (Auto) 0 % Neutrophils (%) (Auto) 68 42-75 % Lymphocytes (%) (Auto) 24 12-44 % Monocytes (%) (Auto) 5 0-12 % Eosinophils (%) (Auto) 2 0-10 % Basophils (%) (Auto) 0 0-10 % Neutrophils # (Auto) 6.0 1.8-7.8 10^3/uL Lymphocytes # (Auto) 2.1 1.0-4.0 10^3/uL Monocytes # (Auto) 0.4 0.0-1.0 10^3/uL Eosinophils # (Auto) 0.2 0.0-0.3 10^3/uL Basophils # (Auto) 0.0 0.0-0.1 10^3/uL Immature Granulocyte # (Auto) 0.0 0.0-0.1 10^3/uL Sodium Level 139 135-145 MMOL/L Potassium Level 3.0 L 3.6-5.0 MMOL/L Chloride Level 102 98-107 MMOL/L Carbon Dioxide Level 22 21-32 MMOL/L Anion Gap 15 H 5-14 MMOL/L Blood Urea Nitrogen 16 7-18 MG/DL Creatinine 1.16 0.60-1.30 MG/DL Estimat Glomerular Filtration Rate 50 BUN/Creatinine Ratio 14 Glucose Level 219 H 70-105 MG/DL Calcium Level 10.2 H 8.5-10.1 MG/DL Corrected Calcium 10.2 H 8.5-10.1 MG/DL Total Bilirubin 0.5 0.1-1.0 MG/DL Aspartate Amino Transf (AST/SGOT) 16 5-34 U/L Alanine Aminotransferase (ALT/SGPT) 13 0-55 U/L Alkaline Phosphatase 108 40-136 U/L Total Protein 8.1 6.4-8.2 GM/DL Albumin 4.0 3.2-4.5 GM/DL Prothrombin Time 14.3 12.2-14.7 SEC INR Comment 1.1 0.8-1.4 Activated Partial Thromboplast Time 30 24-35 SEC My Orders Orders - JOEY DIAZ Cbc With Automated Diff (12/12/21 11:59) Comprehensive Metabolic Panel (12/12/21 11:59) Protime With Inr (12/12/21 11:59) Partial Thromboplastin Time (12/12/21 11:59) Ua Culture If Indicated (12/12/21 11:59) Pantoprazole Injection (Protonix Injecti (12/12/21 12:21) Ed Iv/Invasive Line Start (12/12/21 12:28) Ns Iv 500 Ml (Sodium Chloride 0.9%) (12/12/21 12:30) Ns Iv 500 Ml (Sodium Chloride 0.9%) (12/12/21 12:30) Potassium Chloride (Tablet) (K Dur Table (12/12/21 12:55) Medications Given in ED Current Medications Medications Dose Ordered Sig/Yoni Route Start Time Stop Time Status Last Admin Dose Admin Sodium Chloride 500 ml @ 0 mls/hr Q0M ONCE IV 12/12/21 12:30 12/12/21 12:31 DC 12/12/21 12:32 500 MLS/HR Vital Signs/I&O 12/12/21 12/12/21 11:44 13:38 Temp 35.6 35.6 Pulse 97 84 Resp 16 16 B/P (MAP) 124/81 (95) 107/68 Capillary Refill : Progress Note : Time: 11:40 Progress Note patient seen and evaluated, will obtain labs, UA and monitor. 1200 NS 500 ml IV, Protonix 40 mg IV for mild GERD symptoms 1230 patient drinking Pepsi, no other complaints 1300 spoke to and patient, labs essentially normal. Provided 20 mEq K+ orally for milk hypokalemia. She took the pill with no complaints or difficulty. 1315 Discussed that she could have progression of her dementia and weakness from COVID. Encouraged high potassium foods. She likes banana splits and her will take her for these regularly. Encouraged walking and moving, as much as possible and small frequent meals. Discharge instructions and return precautions reviewed. Departure Impression Primary Impression: General medical exam Additional Impressions: Appetite loss Dementia Qualified Codes: F03.91 - Unspecified dementia with behavioral disturbance Hypokalemia Disposition: 01 HOME, SELF-CARE Condition: Stable Departure-Patient Inst. Decision time for Depature: 13:15 Referrals: RICARDO SRIVASTAVA DO (PCP/Family) Primary Care Physician Patient Instructions: Dementia (DC), Generalized Weakness (DC), Hypokalemia (DC) Add. Discharge Instructions: Increase foods that are high in potassium. Encourage small frequent meals: food by patients choice and preference. Progress activity as tolerated, encourage walking regularly. Encourage to take medications, as prescribed by Dr. Srivastava. Follow up with Dr. Srivastava, if not improving. Return to Emergency Dept for new, urgent healthcare problems. All discharge instructions reviewed with patient and/or family. Voiced understanding. Copy Copies To 1: RICARDO SRIVASTAVA AMY ARNP Dec 12, 2021 12:14
[2021-12-12 12:17] LABS: BILIRUBIN,URINE NEGATIVE (NEGATIVE); CLARITY,URINE CLEAR; COLOR,URINE YELLOW; GLUCOSE, URINE (UA) NEGATIVE (NEGATIVE); KETONES,URINE TRACE (NEGATIVE); LEUKOCYTE ESTERASE ,URINE 2+ (NEGATIVE); NITRITE,URINE NEGATIVE (NEGATIVE); PH,URINE 5.5 (5-9); PROTEIN,URINE 1+ (NEGATIVE)
[2021-12-12] MEDS ORDERED: PANTOPRAZOLE 40 MG (PROTONIX) VIAL IV STA (12:21)
[2021-12-12 12:27] LABS: BASOPHILS % (AUTO) 0 % (0-10); EOSINOPHILS # (AUTO) 0.2 10^3/uL (0.0-0.3); EOSINOPHILS % (AUTO) 2 % (0-10); HEMATOCRIT 44 % (35-52); HEMOGLOBIN 13.8 g/dL (11.5-16.0); LYMPHOCYTES # (AUTO) 2.1 10^3/uL (1.0-4.0); LYMPHOCYTES % (AUTO) 24 % (12-44); MEAN CORPUSCULAR HEMOGLOBIN 27 pg (25-34); MEAN CORPUSCULAR HGB CONC 32 g/dL (32-36); MEAN CORPUSCULAR VOLUME 85 fL (80-99); MEAN PLATELET VOLUME 10.5 fL (9.0-12.2); MONOCYTES # (AUTO) 0.4 10^3/uL (0.0-1.0); MONOCYTES % (AUTO) 5 % (0-12); NEUTROPHILS % (AUTO) 68 % (42-75); PLATELET COUNT 519 10^3/uL (130-400); WHITE BLOOD COUNT 8.8 10^3/uL (4.3-11.0)
[2021-12-12] MEDS ORDERED: NS IV 500 ML 500 ML IV ONE (12:30)
[2021-12-12] MEDS ORDERED: NS IV 500 ML 500 ML ONE (12:30)
[2021-12-12 12:33] LABS: BACTERIA,URINE TRACE /HPF; RBC,URINE RARE /HPF; WBC,URINE 25-50 /HPF
[2021-12-12 12:39] LABS: CALCIUM 10.2 MG/DL (8.5-10.1)
[2021-12-12 12:40] LABS: TOTAL PROTEIN 8.1 GM/DL (6.4-8.2)
[2021-12-12 12:42] LABS: BILIRUBIN,TOTAL 0.5 MG/DL (0.1-1.0)
[2021-12-12 12:44] LABS: CREATININE SERUM 1.16 MG/DL (0.60-1.30)
[2021-12-12] MEDS ORDERED: KCL 20 MEQ TAB (K-DUR) PO STA (12:55)
[2021-12-12 13:12] LABS: INR 1.1 (0.8-1.4); PROTHROMBIN TIME PATIENT 14.3 SEC (12.2-14.7)
[2021-12-12 13:38] VITALS: BP 107/68
== END 2021-12-12 13:37 | disposition home or self-care (01) ==
LOC: EDUNIT# 11:23 → ER 11:28
DX: F03.90 Unspecified dementia, unspecified severity, without behavioral disturbance, psychotic disturbance, mood disturbance, and anxiety (principal); E87.6 Hypokalemia; R63.0 Anorexia
CPT/HCPCS: 36415; 80053; 81000; 85025; 85610; 85730

== ENCOUNTER 2021-12-24 11:51 | Emergency (ER) | payer MEDICARE, OTHER ==
[~2021-12-24] VITALS: Ht 170.1 cm; Wt 72.5 kg
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
[2021-12-24] MEDS ORDERED: LIDOCAINE UROJET 2% GEL 10 ML PKG TOP ONE (13:00)
[2021-12-24 13:05] LABS: BILIRUBIN,URINE NEGATIVE (NEGATIVE); CLARITY,URINE SL CLOUDY; COLOR,URINE YELLOW; GLUCOSE, URINE (UA) NEGATIVE (NEGATIVE); KETONES,URINE NEGATIVE (NEGATIVE); LEUKOCYTE ESTERASE ,URINE 3+ (NEGATIVE); NITRITE,URINE NEGATIVE (NEGATIVE); PROTEIN,URINE NEGATIVE (NEGATIVE)
--- NOTE | 2021-12-24 13:16 | Diagnostic Imaging Report ---
PROCEDURE: CT head without contrast. TECHNIQUE: Multiple contiguous axial images were obtained through the brain without the use of intravenous contrast. Auto Exposure Controls were utilized during the CT exam to meet ALARA standards for radiation dose reduction. DATE: December 24, 2021. COMPARISON: CT head December 04, 2018. INDICATION: 71-year-old female, fall. Laceration to the back of the head. FINDINGS: There is irregularity of the contours of the posterior scalp likely reflecting site of soft tissue injury. There is no identified skull fracture. There is proportional prominence of the ventricles and additional CSF spaces consistent with moderate cerebral volume loss. There are areas of low-attenuation in the periventricular subcortical white matter most likely reflecting findings of chronic small vessel ischemic disease. There is no mass effect or midline shift. There is no acute intracranial hemorrhage. There is no abnormal extra-axial fluid collection. The visualized portions of the paranasal sinuses, mastoid air cells and middle ears are well aerated. IMPRESSION: 1. Soft tissue injury in the region of the posterior scalp. 2. No identified acute intracranial abnormality. 3. Moderate cerebral volume loss and mild findings of chronic small vessel ischemic disease. Dictated by: Dictated on workstation # [id number]
[2021-12-24 13:19] LABS: BACTERIA,URINE LARGE /HPF; WBC,URINE >100 /HPF
[2021-12-24] MEDS ORDERED: CEFD300C3 PO (13:42)
[2021-12-24 14:52] VITALS: BP 127/77
== END 2021-12-24 14:02 | disposition home or self-care (01) ==
LOC: ER 11:52
DX: S09.90XA Unspecified injury of head, initial encounter (principal); S01.01XA Laceration without foreign body of scalp, initial encounter; N39.0 Urinary tract infection, site not specified; Z98.890 Other specified postprocedural states; Z87.442 Personal history of urinary calculi; Z86.16 Personal history of COVID-19; W18.30XA Fall on same level, unspecified, initial encounter; Y92.092 Bedroom in other non-institutional residence as the place of occurrence of the external cause
CPT/HCPCS: 70450; 81000; 87077; 87088

== ENCOUNTER 2022-01-05 16:30 | Emergency (ER) | payer MEDICARE, OTHER ==
[~2022-01-05] VITALS: Ht 170 cm; Wt 72.5 kg
--- NOTE | 2022-01-05 16:58 | ED Head Injury ---
General Chief Complaint: Laceration Stated Complaint: FALL/HEAD INJURY Nursing Triage Note: FELL OUT OF BED AND HIT HEAD AROUND 0330 THIS AM. DENIES BEING ON BLOOD THINNERS. DENIES LOC. Source: patient, spouse Exam Limitations: no limitations (JODIE GUILLEN APRN) History of Present Illness Date Seen by Provider: Jan 05, 2022 Time Seen by Provider: 16:55 Initial Comments Patient is a 71 yo F who presents to the ED after a mechanical fall at home early this AM. Her states she struck her forehead against a lampstand. She did not lose consciousness. Has been at baseline since that time. Patient is a resident at a correction but her takes her home each weekend. The fall occurred at 0330 this AM. wants her evaluated to make sure she is ok. She is not on any blood thinners. Occurred: this morning Location: frontal Method of Injury: fell (JODIE GUILLEN APRN) Allergies and Home Medications Allergies Coded Allergies: No Known Drug Allergies (Verified , 09/29/19) Patient Home Medication List Home Medication List Reviewed: Yes (JODIE GUILLEN APRN) Buspirone HCl (Buspirone HCl) 15 Mg Tablet, 15 MG PO BID Prescribed by: DIPIKA SUMMERS on 10/09/17 1350 Cefdinir (Cefdinir) 300 Mg Capsule, 300 MG PO BID Prescribed by: MARIE BARAHONA on 12/04/18 2000 Cefdinir (Cefdinir) 300 Mg Capsule, 300 MG PO BID Prescribed by: CECILIO HAN on 12/24/21 1342 Dexamethasone (Decadron) 6 Mg Tablet, 6 MG PO DAILY Prescribed by: ADRIAN FORTUNE on 11/14/21 1020 Levofloxacin (Levaquin) 500 Mg Tablet, 500 MG PO DAILY Prescribed by: DIPIKA SUMMERS on 10/09/17 1407 Mirtazapine (Mirtazapine) 15 Mg Tablet, 22.5 MG PO HS, (Reported) Entered as Reported by: JANE SUN on 10/07/17 1220 Ondansetron (Ondansetron Odt) 4 Mg Tab.rapdis, 4 MG PO Q6H PRN for NAUSEA/VOMITING Prescribed by: ADRIAN FORTUNE on 11/14/21 1020 Pantoprazole Sodium (Pantoprazole Sodium) 40 Mg Tablet.dr, 40 MG PO DAILY PRN for HEARTBURN, (Reported) Entered as Reported by: JANE SUN on 10/07/17 1220 Potassium Chloride (Potassium Chloride) 20 Meq Tablet.er, 20 MEQ PO BID Prescribed by: MARIE BARAHONA on 12/04/181999 [oxygen concentrator] , L NA DAILY PRN for AIR HUNGER, (DME) Prescribed by: ADRIAN FORTUNE on 11/14/21 1053 Review of Systems Review of Systems Constitutional: no symptoms reported Eyes: No Symptoms Reported Ears, Nose, Mouth, Throat: no symptoms reported Respiratory: no symptoms reported Cardiovascular: no symptoms reported Gastrointestinal: no symptoms reported Genitourinary: no symptoms reported Musculoskeletal: no symptoms reported Skin: other (laceration) (JODIE GUILLEN APRN) Past Ehlleji-Cdphdr-Rkmzyk Hx Patient Social History Tobacco Use?: No Use of E-Cig and/or Vaping dev: No Substance use?: No Alcohol Use?: No Pt feels they are or have been: No (JODIE GUILLEN APRN) Immunizations Up To Date Tetanus Booster (TDap): Unknown Influenza Vaccine Up-to-Date: Yes; Up-to-Date First/Initial COVID19 Vaccinat: 2020 Second COVID19 Vaccination Ritesh: 2020 Third COVID19 Vaccination Date: 02/27/21 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: [employer] (JODIE GUILLEN APRN) Seasonal Allergies Seasonal Allergies: No (JODIE GUILLEN APRN) Past Medical History Surgery/Hospitalization HX: SCHIZOPHRENIA, DEPRESSION, ANXIETY, DIARRHEA, UTI, Surgeries: Yes (HIATAL HERNIA, EGD, COLONOSCOPY, BREAT BIOPSY X2) Abdominal, Bladder Surgery, Breast, Gallbladder, Renal Respiratory: No Currently Using CPAP: No Currently Using BIPAP: No Cardiac: No Neurological: Yes (SLEEP PROBLEMS/RESTLESS, POSS DEMENTIA) Dementia Reproductive Disorders: No 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 Disorders: Denies 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 Sexually Transmitted Disease: No HIV/AIDS: No Genitourinary: Yes Bladder Infection, Kidney Stones Gastrointestinal: Yes (CHRONIC ABDOMINAL PAIN) Chronic Constipation, Chronic Diarrhea, Irritable Bowel Musculoskeletal: No Endocrine: No Cataract Loss of Vision: Denies Hearing Impairment: Denies Cancer: No Psychosocial: Yes Anxiety Integumentary: No Blood Disorders: No Adverse Reaction/Blood Tranf: No (N/A) (JODIE GUILLEN APRN) Family Medical History Cancer 19 MOTHER, Onset:Unknown Cancer of colon 19 FATHER No Pertinent Family Hx (JODIE GUILLEN APRN) Physical Exam Vital Signs Vital Signs - First Documented 01/05/22 16:35 Temp 37.2 Pulse 109 Resp 18 B/P (MAP) 107/80 (89) Pulse Ox 95 O2 Delivery Room Air (PREETI ECHAVARRIA MD) Vital Signs Capillary Refill : (JODIE GUILLEN APRN) Height, Weight, BMI Height: 5'6.00" Weight: 170lbs. 0oz. [id number]; 25.00 BMI Method:Actual General Appearance: WD/WN, no apparent distress HEENT: PERRL/EOMI, normal ENT inspection, TMs normal, pharynx normal Neck: non-tender, full range of motion, supple, normal inspection Cardiovascular: normal peripheral pulses, regular rate, rhythm, no edema, no gallop, no JVD, no murmur Respiratory: chest non-tender, lungs clear, normal breath sounds, no respiratory distress, no accessory muscle use Gastrointestinal: normal bowel sounds, non tender, soft, no organomegaly, no pulsatile mass Back: normal inspection, no CVA tenderness, no vertebral tenderness Extremities: normal range of motion, non-tender, normal inspection, no pedal edema, no calf tenderness, normal capillary refill, pelvis stable abrasion/minor skin tear noted to the right forehead; no wound amenable to primary closure noted (JODIE GUILLEN APRN) Progress/Results/Core Measures Results/Orders Vital Signs/I&O 01/05/22 01/05/22 16:35 17:23 Temp 37.2 Pulse 109 109 Resp 18 18 B/P (MAP) 107/80 (89) 107/80 Pulse Ox 95 95 O2 Delivery Room Air Room Air (PREETI ECHAVARRIA MD) Blood Pressure Mean: 89 Progress Progress Note : Progress Note Patient is nontoxic and well hydrated on exam. Vital signs are reassuring. No focal neurologic deficits noted. No midface instability noted. No lacerations appreciated. No indication for cross sectional imaging of the head given remote nature of the wound and lack of neurologic abnormality. Will d/c home with recs for supportive care and follow-up with PCP for persistent symptoms. Return precautions for urgent symptomology discussed. Patient and verbalized understanding. (JODIE GUILLEN APRN) Departure Impression Primary Impression: Forehead abrasion Qualified Codes: S00.81XA - Abrasion of other part of head, initial encounter Additional Impression: Fall Qualified Codes: W19.XXXA - Unspecified fall, initial encounter Disposition: HOME, SELF-CARE Condition: Stable Departure-Patient Inst. Decision time for Depature: 17:10 (JODIE GUILLEN APRN) Referrals: RICARDO SRIVASTAVA DO (PCP/Family) Primary Care Physician Patient Instructions: Skin Abrasions (DC) ATTENDING PHYSICIAN NOTE: I was physically present as attending physician in the emergency department during the care of this patient, but I was not directly involved in the decision making or delivery of care for this patient. (PREETI ECHAVARRIA MD) JODIE GUILLEN APRN Jan 05, 2022 16:58 PREETI ECHAVARRIA MD Jan 05, 2022 20:05
[2022-01-05 17:23] VITALS: BP 107/80
== END 2022-01-05 17:23 | disposition home or self-care (01) ==
LOC: EDUNIT# 16:30 → ER 16:32
DX: S00.81XA Abrasion of other part of head, initial encounter (principal); W06.XXXA Fall from bed, initial encounter; W22.8XXA Striking against or struck by other objects, initial encounter; Y92.009 Unspecified place in unspecified non-institutional (private) residence as the place of occurrence of the external cause
CPT/HCPCS: 99281

== ENCOUNTER 2022-04-30 08:02 | Emergency (ER) | payer MEDICARE, OTHER ==
[~2022-04-30] VITALS: Ht 170 cm; Wt 64.0 kg
--- NOTE | 2022-04-30 08:36 | ED General ---
General Chief Complaint: General Problems/Pain Stated Complaint: DEMENTIA | Source of Information: Patient, Family Exam Limitations: No Limitations History of Present Illness Date Seen by Provider: Apr 30, 2022 Time Seen by Provider: 08:07 Initial Comments 72-year-old female with past medical history of dementia coming in with her hus band due to concerns for worsening of her dementia and he would like her placed into a assisted. He states she has been dealing with dementia since 2004, and she is continue to go downhill. She is gone to a point where she really does not want to eat or drink anything, and has lost over 30 pounds over the past couple months. She mostly will just drink Pepsi's, but does not really want to eat anything or drink any type of shakes such as Ensure. He try to get her into an assisted living facility, but she required more care than they were able to, so they sent her back home. She is denying any pain anywhere or any other complaints at this time. Allergies and Home Medications Allergies Coded Allergies: No Known Drug Allergies (Verified , 09/29/19) Patient Home Medication List Home Medication List Reviewed: Yes Buspirone HCl (Buspirone HCl) 15 Mg Tablet, 15 MG PO BID Prescribed by: DIPIKA SUMMERS on 10/09/17 1350 Cefdinir (Cefdinir) 300 Mg Capsule, 300 MG PO BID Prescribed by: MARIE BARAHONA on 12/04/181999 Cefdinir (Cefdinir) 300 Mg Capsule, 300 MG PO BID Prescribed by: CECILIO HAN on 12/24/21 1342 Dexamethasone (Decadron) 6 Mg Tablet, 6 MG PO DAILY Prescribed by: ADRIAN FORTUNE on 11/14/21 1020 Levofloxacin (Levaquin) 500 Mg Tablet, 500 MG PO DAILY Prescribed by: DIPIKA SUMMERS on 10/09/17 1407 Mirtazapine (Mirtazapine) 15 Mg Tablet, 22.5 MG PO HS, (Reported) Entered as Reported by: JANE SUN on 10/07/17 1220 Ondansetron (Ondansetron Odt) 4 Mg Tab.rapdis, 4 MG PO Q6H PRN for NAUSEA/VOMITING Prescribed by: ADRIAN FORTUNE on 11/14/21 1020 Pantoprazole Sodium (Pantoprazole Sodium) 40 Mg Tablet.dr, 40 MG PO DAILY PRN for HEARTBURN, (Reported) Entered as Reported by: JANE SUN on 10/07/17 1220 Potassium Chloride (Potassium Chloride) 20 Meq Tablet.er, 20 MEQ PO BID Prescribed by: MARIE BARAHONA on 12/04/181999 [oxygen concentrator] , L NA DAILY PRN for AIR HUNGER, (DME) Prescribed by: ADRIAN FORTUNE on 11/14/21 1053 Review of Systems Review of Systems Constitutional: No fever EENTM: no symptoms reported Respiratory: no symptoms reported Cardiovascular: no symptoms reported Gastrointestinal: no symptoms reported Genitourinary: no symptoms reported Musculoskeletal: no symptoms reported Skin: no symptoms reported Psychiatric/Neurological: See HPI Hematologic/Lymphatic: No Symptoms Reported Immunological/Allergic: no symptoms reported All Other Systems Reviewed Negative Unless Noted: Yes Past Szfhjbq-Tilxyd-Grbjhp Hx Patient Social History Tobacco Use?: No Substance use?: No Alcohol Use?: No Immunizations Up To Date Tetanus Booster (TDap): Unknown First/Initial COVID19 Vaccinat: 2020 Second COVID19 Vaccination Ritesh: 2020 Third COVID19 Vaccination Date: 02/27/21 Seasonal Allergies Seasonal Allergies: No Past Medical History Surgery/Hospitalization HX: SCHIZOPHRENIA, DEPRESSION, ANXIETY, DIARRHEA, UTI, Surgeries: Yes (HIATAL HERNIA, EGD, COLONOSCOPY, BREAT BIOPSY X2) Abdominal, Bladder Surgery, Breast, Gallbladder, Renal Respiratory: No Currently Using CPAP: No Currently Using BIPAP: No Cardiac: No Neurological: Yes (SLEEP PROBLEMS/RESTLESS, POSS DEMENTIA) Dementia Reproductive Disorders: No 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 Disorders: 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 Sexually Transmitted Disease: No HIV/AIDS: No Genitourinary: Yes Bladder Infection, Kidney Stones Gastrointestinal: Yes (CHRONIC ABDOMINAL PAIN) Chronic Constipation, Chronic Diarrhea, Irritable Bowel Musculoskeletal: No Endocrine: No Cataract Loss of Vision: Denies Hearing Impairment: Denies Cancer: No Psychosocial: Yes Anxiety Integumentary: No Blood Disorders: No Adverse Reaction/Blood Tranf: No (N/A) Family Medical History Cancer 19 MOTHER, Onset:Unknown Cancer of colon 19 FATHER No Pertinent Family Hx Physical Exam Vital Signs Vital Signs - First Documented 04/30/22 08:20 Temp 36.0 Pulse 90 Resp 18 B/P (MAP) 112/85 (94) Pulse Ox 96 Capillary Refill : Height, Weight, BMI Height: 5'6.00" Weight: 170lbs. 0oz. 77.933337os; 25.00 BMI Method:Actual General Appearance: No Apparent Distress, WD/WN Eyes: Bilateral Eye Normal Inspection HEENT: PERRL/EOMI, Pharynx Normal, Other (Dry mucous membrane) Neck: Full Range of Motion, Normal Inspection, Non Tender, Supple Respiratory: Chest Non Tender, Lungs Clear, Normal Breath Sounds, No Accessory Muscle Use, No Respiratory Distress Cardiovascular: Regular Rate, Rhythm, No Edema, Normal Peripheral Pulses Gastrointestinal: Normal Bowel Sounds, Non Tender, Soft; No Distended, No Guarding Back: Normal Inspection, No CVA Tenderness, No Vertebral Tenderness Extremity: Normal Capillary Refill, Normal Inspection, Normal Range of Motion, Non Tender, No Calf Tenderness, No Pedal Edema Neurologic/Psychiatric: Alert, No Motor/Sensory Deficits, Normal Mood/Affect, Other (Alert and oriented to self and location, does not know the dates, and does not know why she is here) Skin: Normal Color, Warm/Dry Lymphatic: No Adenopathy Progress/Results/Core Measures Suspected Sepsis SIRS Temperature: Pulse: Respiratory Rate: Blood Pressure / Mean: Results/Orders Vital Signs/I&O 04/30/22 08:20 Temp 36.0 Pulse 90 Resp 18 B/P (MAP) 112/85 (94) Pulse Ox 96 Capillary Refill : Progress Note : Progress Note 72-year-old female with above history coming in due to advancing dementia and now not really wanting to eat or drink. She has no real complaints at this time, and she states she just wants to go home. I discussed her care with the spouse and he states she would not want anything aggressive. I discussed admiss ion with IV fluids versus going home on hospice with eventual placement in a assisted. He states he would prefer hospice with the assisted. Our psychologist social came down and discussed hospice option, and they would like to do [facility]. I then contacted [facility], and they will help with eventual placement into a assisted pick. The patient will be able to go home first before placement. She is tolerating fluids here orally. I believe she is otherwise stable for discharge with outpatient follow-up. She was sent home with strict return precautions. Departure Impression Primary Impression: Mild dehydration Additional Impressions: Advanced dementia Qualified Codes: F03.C18 - Unspecified dementia, severe, with other behavioral disturbance Encounter for hospice care discussion Disposition: 01 HOME, SELF-CARE Condition: Stable Departure-Patient Inst. Decision time for Depature: 11:07 Referrals: RICARDO SRIVASTAVA DO (PCP/Family) Primary Care Physician Patient Instructions: Dementia ED, Palliative Care JORGE ALBERTO MORAES MD Apr 30, 2022 08:35
[2022-04-30 11:15] VITALS: BP 112/85
== END 2022-04-30 11:15 | disposition home or self-care (01) ==
LOC: EDUNIT# 08:02 → ER 08:04
DX: E86.0 Dehydration (principal); F03.90 Unspecified dementia, unspecified severity, without behavioral disturbance, psychotic disturbance, mood disturbance, and anxiety; Z51.5 Encounter for palliative care
CPT/HCPCS: 99281